=== PATIENT | male | born 1950 | race African-American/Black ===

== ENCOUNTER 2020-03-02 13:06 | Inpatient (IN) | payer OTHER ==
[2020-03-02 13:40] VITALS: BMI 24.4
[2020-03-02 14:25] LABS: BASO % 0.2 % (0-2.0); HEMATOCRIT 19.6 % (35.4-49); LYMPH % 13.8 % (8-40); MCH 33.4 pg (25.7-33.7); MCHC 33.7 g/dl (32.0-35.9); MEAN CELL VOLUME 99.3 fl (80-96); MEAN PLT VOLUME 9.1 fl (7.5-11.1); MONO % 6.3 % (3.8-10.2); NEUT % 79.7 % (42.8-82.8); PLATELET COUNT 97 K/MM3 (134-434); RBC 1.97 M/mm3 (4.00-5.60); RDW 11.3 % (11.9-15.9); WHITE BLOOD COUNT 3.1 K/mm3 (4.0-10.0)
[2020-03-02 14:26] LABS: VENOUS BASE EXCESS -6.3 mmol/L (-2-2); VENOUS O2 SATURATION 46.6 % (70-80); VENOUS PH 7.249 (7.310-7.410)
[2020-03-02 14:30] LABS: HEMOGLOBIN 6.6 GM/dL (11.7-16.9)
[2020-03-02 14:40] LABS: INR 0.98 (0.83-1.09); PROTHROMBIN TIME (PATIENT) 11.6 SEC (9.7-13.0)
[2020-03-02 14:43] LABS: ACTIVATED PTT 26.5 SECONDS (25.2-36.5)
[2020-03-02 14:51] LABS: EPI CELLS 4 /uL (0-25.1); HYALINE CASTS 1 /uL (0-3.1); URINE APPEARANCE CLEAR; URINE BACTERIA 16 /uL (0-1359); URINE BILIRUBIN NEGATIVE (NEGATIVE); URINE COLOR YELLOW; URINE GLUCOSE (UA) NEGATIVE (NEGATIVE); URINE KETONE NEGATIVE (NEGATIVE); URINE LEUK ESTERASE NEGATIVE (NEGATIVE); URINE NITRITE NEGATIVE (NEGATIVE); URINE PROTEIN 1+ (NEGATIVE); URINE RBC 12 /uL (0-23.9); URINE UROBILINOGEN 0.2 mg/dL (0.2-1.0); URINE WBC 2 /uL (0-25.8)
[2020-03-02 14:52] LABS: ALBUMIN 2.8 g/dl (3.4-5.0); BILIRUBIN,TOTAL 0.3 mg/dL (0.2-1); BLOOD UREA NITROGEN 101.2 mg/dL (7-18); CALCIUM 8.6 mg/dL (8.5-10.1); POTASSIUM 5.3 mmol/L (3.5-5.1); TOT PROT 7.8 g/dl (6.4-8.2)
--- NOTE | 2020-03-02 15:02 | PDOC ---
History of Present Illness - General Chief Complaint: Weakness Stated Complaint: WEAKNESS Time Seen by Provider: 03/02/20 14:29 History Source: Family, Alf Records Exam Limitations: Dementia - History of Present Illness Initial Comments: 03/02/20 14:52 69yo M from [place] with PMH lung cancer on chemo with likely mets, possible renal mass, COPD, seizures on phenobarbital, dementia, anemia (last hb 6.7 on 02/26/20), neuropathy on gabapentin, and recently treated for a tooth abbess with augmentin who was BIBEMS for "FTT, AMS, and abnormal labs." Unable to obtain history from patient due to AMS. Patient is currently AAOx0, and as per daughter and chart, is usually able to converse normally and is AAOx2-3. Per [place] chart, patient has had a recent functional decline and has been refusing chemo. PMH/PSH: as above Meds: phenobarbital, requip, flomax, geritussin, tylenol, zofran, gabapentin, oxana-lanta, morphine, iron Allergies: none SH: [place] resident FH: unable to obtain ROS: unable to obtain PE: Gen: thin elderly man, AAOx3, unintelligible, lying comfortably, NAD HEENT: PERRLA, MMM Neck: supple Heart: RRR Lungs: CTAB Chest: port on upper left chest wall Abdomen: soft, NT/ND Ext: warm, well-perfused, no edema Neuro: non-focal exam MDM: 9yo M from [place] with PMH lung cancer on chemo with likely mets, possible renal mass, COPD, seizures on phenobarbital, dementia, anemia (last hb 6.7 on 02/26/20), neuropathy on gabapentin, and recently treated for a tooth abbess with augmentin who was BIBEMS for "FTT, AMS, and abnormal labs." Labs notable for BUN/CR 101/5.0, elevated from [place] 02/26/20 result of 49/2.1. pH 7.249. Uremia may explain AMS. Differential also includes metabolic abnormalities, sepsis. -Renal consult for urgent dialysis for uremic encephalopathy and ARF -EKG -labs: uremia, creatinine 5 from 2 five days prior -CT Head: no acute findings -CT A/P: right renal pole mass and dilated gallbladder, CBD, pancreatic duct -Covid swab -admit -500ml NS Spoke to Dr. Garza who accepted the patient Past History - Medical History Allergies/Adverse Reactions: Allergies Allergy/AdvReac Type Severity Reaction Status Date / Time No Known Allergies Allergy Verified 03/02/20 14:04 Home Medications: Ambulatory Orders Acetaminophen [Tylenol] 325 mg PO 03/02/20 Ferrous Sulfate [Iron] 325 mg PO DAILY 03/02/20 Fluorometholone 0.1% Oph Oint 1 drop OD DAILY 03/02/20 Gabapentin 300 mg PO DAILY 03/02/20 Guaifenesin [Oxana-Tussin] 100 mg PO DAILY 03/02/20 Latanoprost 0.005% Eye Drops [Xalatan 0.005% Eye Drops -] 1 drop OD DAILY 03/02/20 Morphine *Immediate Release* [Msir -] 30 mg PO Q4H 03/02/20 Ondansetron HCl [Zofran] 4 mg PO PRN 03/02/20 Phenobarbital 32.4 mg PO PRN 03/02/20 Ropinirole HCl [Requip Xl] 2 mg PO DAILY 03/02/20 Tamsulosin HCl [Flomax] 0.4 mg PO DAILY 03/02/20 - Psycho-Social/Smoking History Smoking History: Never smoked Have you smoked in the past 12 months: No Information on smoking cessation initiated: No - Substance Abuse Hx (Audit-C & DAST Scrn) How often the patient has a drink containing alcohol: Never Score: In Men: 4 or > Positive; In Women: 3 or > Positive: 0 Screen Result (Pos requires Nsg. Audit-10AR): Negative *Physical Exam - Vital Signs Last Vital Signs Temp Pulse Resp BP Pulse Ox 97.9 F 77 19 90/62 96 03/02/20 13:35 03/02/20 13:07 03/02/20 13:07 03/02/20 13:07 03/02/20 13:07 ED Treatment Course - LABORATORY CBC & Chemistry Diagram: 03/02/20 13:57 03/02/20 13:57 - ADDITIONAL ORDERS Additional order review: Laboratory Results 03/02/20 03/02/20 03/02/20 13:57 13:57 13:57 PT with INR 11.60 INR 0.98 PTT (Actin FS) 26.5 VBG pH 7.249 L POC VBG pCO2 48.0 POC VBG pO2 29.6 VBG HCO3 20.5 L VBG O2 Sat (Desi) 46.6 L VBG Base Excess -6.3 L POC Glucometer Urine Color Yellow Urine Appearance Clear Urine pH 5.0 Ur Specific [place] 1.013 Urine Protein 1+ H Urine Glucose (UA) Negative Urine Ketones Negative Urine Blood Negative Urine Nitrite Negative Urine Bilirubin Negative Urine Urobilinogen 0.2 Ur Leukocyte Esterase Negative Urine WBC (Auto) 2 Urine RBC (Auto) 12 Urine Casts (Auto) 1 U Epithel Cells (Auto) 4 Urine Bacteria (Auto) 16 03/02/20 13:41 PT with INR INR PTT (Actin FS) VBG pH POC VBG pCO2 POC VBG pO2 VBG HCO3 VBG O2 Sat (Desi) VBG Base Excess POC Glucometer 116 Urine Color Urine Appearance Urine pH Ur Specific [place] Urine Protein Urine Glucose (UA) Urine Ketones Urine Blood Urine Nitrite Urine Bilirubin Urine Urobilinogen Ur Leukocyte Esterase Urine WBC (Auto) Urine RBC (Auto) Urine Casts (Auto) U Epithel Cells (Auto) Urine Bacteria (Auto) 03/02/20 03/02/20 13:57 13:41 RBC 1.97 L MCV 99.3 H MCHC 33.7 RDW 11.3 L MPV 9.1 Neutrophils % 79.7 Lymphocytes % 13.8 Monocytes % 6.3 Eosinophils % 0.0 Basophils % 0.2 POC Glucometer 116 Discharge - Discharge Information Problems reviewed: Yes Clinical Impression/Diagnosis: Transient alteration of awareness Condition: Guarded - Follow up/Referral - Patient Discharge Instructions - Post Discharge Activity
[2020-03-02] MEDS ORDERED: SODIUM CHLORIDE 500 ML IV STA (16:10)
--- NOTE | 2020-03-02 16:13 | PDOC ---
Attending Attestation - Resident Resident Name: Alex Heard - ED Attending Attestation I have performed the following: I have examined & evaluated the patient, The case was reviewed & discussed with the resident, I agree w/resident's findings & plan - HPI HPI: 03/02/20 16:08 69y/o M h/o met lung ca, CRI sent from [facility] for progressive generalized weakness and cognitive decline/AMS in setting of decrease PO intake. normally more alert and conversant, over last days has been weaker and less actve. - Physicial Exam PE: 03/02/20 16:09 afebrile, vss somnolent but arousable regular rate lungs symmetric grimaces with abd exam, otherwise soft/nd nonfocal neuro but limited - Medical Decision Making 03/02/20 16:10 69y/o M known metastatic lung ca with AMS and progressive functional decline at [facility], vss here but remains altered from baseline mental status. metabolic v. infectious v. neoplastic labs, ua ekg, cxr, ct head, ct abd/pel ivf admit 03/02/20 16:11 labs show baseline pancytopenia without neutropenia chem notable for Cr 5, up from baseline 2. ct head and AP pending UA clear Heart Score/ECG Review #1 ECG reviewed & interpreted by me at: 13:37 General ECG Interpretation: Sinus Rhythm, Normal Rate (71), Normal Intervals (qtc 408), No acute ischemic changes Compared to previous ECG there are: Previous ECG unavail Discharge - Discharge Information Problems reviewed: Yes Clinical Impression/Diagnosis: Transient alteration of awareness Condition: Guarded - Follow up/Referral Referrals: Marquita Vergara MD [Primary Care Provider] - - Patient Discharge Instructions - Post Discharge Activity
--- NOTE | 2020-03-02 17:46 | HP ---
Admitting History and Physical - Primary Care Physician PCP: Marquita Vergara - Admission Chief Complaint: AMS History of Present Illness: - History of Present Illness Initial Comments: 03/02/20 14:52 69yo M from [place] with PMH lung cancer on chemo with likely mets, possible renal mass, COPD, seizures on phenobarbital, dementia, anemia (last hb 6.7 on 02/26/20), neuropathy on gabapentin, and recently treated for a tooth abbess with augmentin who was BIBEMS for "FTT, AMS, and abnormal labs." Unable to obtain history from patient due to AMS. Patient is currently AAOx0, and as per daughter and chart, is usually able to converse normally and is AAOx2-3. Per [place] chart, patient has had a recent functional decline and has been refusing chemo. PMH/PSH: as above Meds: phenobarbital, requip, flomax, geritussin, tylenol, zofran, gabapentin, oxana-lanta, morphine, iron Allergies: none SH: [place] resident FH: unable to obtain ROS: unable to obtain History Source: Transfer Record Limitations to Obtaining History: Unresponsive - Past Medical History Pulmonary: Yes: COPD Heme/Onc: Yes: Anemia, Cancer - Smoking History Smoking history: Never smoked Have you smoked in the past 12 months: No Home Medications - Allergies Allergies/Adverse Reactions: Allergies Allergy/AdvReac Type Severity Reaction Status Date / Time No Known Allergies Allergy Verified 03/02/20 14:04 - Home Medications Home Medications: Ambulatory Orders Acetaminophen [Tylenol] 325 mg PO 03/02/20 Ferrous Sulfate [Iron] 325 mg PO DAILY 03/02/20 Fluorometholone 0.1% Oph Oint 1 drop OD DAILY 03/02/20 Gabapentin 300 mg PO DAILY 03/02/20 Guaifenesin [Oxana-Tussin] 100 mg PO DAILY 03/02/20 Latanoprost 0.005% Eye Drops [Xalatan 0.005% Eye Drops -] 1 drop OD DAILY 03/02/20 Morphine *Immediate Release* [Msir -] 30 mg PO Q4H 03/02/20 Ondansetron HCl [Zofran] 4 mg PO PRN 03/02/20 Phenobarbital 32.4 mg PO PRN 03/02/20 Ropinirole HCl [Requip Xl] 2 mg PO DAILY 03/02/20 Tamsulosin HCl [Flomax] 0.4 mg PO DAILY 03/02/20 Physical Examination Vital Signs: Vital Signs Temperature 99.0 F 03/02/20 17:11 Pulse Rate 74 03/02/20 17:11 Respiratory Rate 19 03/02/20 13:07 Blood Pressure 102/52 L 03/02/20 17:11 O2 Sat by Pulse Oximetry (%) 100 03/02/20 17:11 Labs: CBC, BMP 03/02/20 13:57 03/02/20 13:57
[2020-03-02] MEDS ORDERED: CEFTRIAXONE 1 GM in DEXTROSE 5%-WATER - 50 ML IVPB ONE (17:49)
[2020-03-02] MEDS ORDERED: CEFTRIAXONE 1 GM/50 ML BAG ONE (17:50)
[2020-03-02] MEDS: SODIUM CHLORIDE 1,000 ML IV SCH (18:21)
[2020-03-02] MEDS ORDERED: PHENobarbital 30 MG TABLET ONE (22:34)
[2020-03-02] MEDS: PHENobarbital 30 MG TABLET PO SCH (22:40)
[2020-03-03 00:11] LABS: IRON SERUM 133 ug/dL (50-175); TOTAL IRON BINDING CAPACITY 163 ug/dL (250-450)
[2020-03-03 07:27] LABS: BASO % 0.5 % (0-2.0); HEMATOCRIT 24.3 % (35.4-49); HEMOGLOBIN 8.2 GM/dL (11.7-16.9); MCH 32.5 pg (25.7-33.7); MEAN CELL VOLUME 95.5 fl (80-96); MEAN PLT VOLUME 8.6 fl (7.5-11.1); MONO % 15.8 % (3.8-10.2); NEUT % 65.7 % (42.8-82.8); PLATELET COUNT 101 K/MM3 (134-434); RBC 2.54 M/mm3 (4.00-5.60); RDW 15.4 % (11.9-15.9); WHITE BLOOD COUNT 3.7 K/mm3 (4.0-10.0)
[2020-03-03 07:40] LABS: ALBUMIN 2.7 g/dl (3.4-5.0); BILIRUBIN,TOTAL 0.3 mg/dL (0.2-1); BLOOD UREA NITROGEN 92.3 mg/dL (7-18); CALCIUM 8.3 mg/dL (8.5-10.1); CREATININE 4.3 mg/dL (0.55-1.3); POTASSIUM 5.4 mmol/L (3.5-5.1); TOT PROT 7.6 g/dl (6.4-8.2)
[2020-03-03] MEDS ORDERED: TAMSULOSIN HCL 0.4 MG CAP ONE (09:30)
[2020-03-03] MEDS: LATANOPROST 0.005% OPHTH SOLN 2.5ML BOTTLE OD SCH (10:00)
--- NOTE | 2020-03-03 10:43 | EKG ---
Test Reason : Blood Pressure : / mmHG Vent. Rate : 071 BPM Atrial Rate : 071 BPM P-R Int : 144 ms QRS Dur : 076 ms QT Int : 376 ms P-R-T Axes : 075 040 061 degrees QTc Int : 408 ms NORMAL SINUS RHYTHM INCREASED R/S RATIO IN V1, CONSIDER EARLY TRANSITION OR POSTERIOR INFARCT ABNORMAL ECG NO PREVIOUS ECGS AVAILABLE Confirmed by MD Dietrich Daniel ([id number]) on 03/03/2020 10:42:32 AM Referred By: Confirmed By:Juan Daniel Dietrich MD
[2020-03-03] MEDS: TAMSULOSIN HCL 0.4 MG CAP PO SCH (10:52)
[2020-03-03] MEDS: PHENobarbital 30 MG TABLET PO SCH ×2 (10:53→21:44)
[2020-03-03] MEDS: SODIUM CHLORIDE 1,000 ML IV SCH ×3 (11:12→20:17)
[2020-03-03 12:01] LABS: ANISOCYTOSIS 0; MACROCYTOSIS 0; PLATELET ESTIMATE DECREASED
--- NOTE | 2020-03-03 12:18 | PN ---
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 (short form) - Note 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: Pt examined in ER baseline he can talk and walk but when he was started back on chemo for lung CA-- he is declining-- he has poor po intake he is currently drowsy, not talking Vital Signs - 24 hr 03/02/20 03/02/20 03/02/20 19:10 19:35 19:50 Temperature 98.0 F 97.9 F Pulse Rate 84 Pulse Rate [ Left Radial] Pulse Rate [ 86 84 Right Radial] Respiratory 16 16 Rate Blood Pressure Blood Pressure 105/72 117/100 [Right Arm] O2 Sat by Pulse 100 99 99 Oximetry (%) 03/02/20 03/03/20 03/03/20 22:43 02:41 06:42 Temperature 97.6 F Pulse Rate Pulse Rate [ 85 Left Radial] Pulse Rate [ 75 74 Right Radial] Respiratory 16 16 14 Rate Blood Pressure Blood Pressure 104/63 97/53 L 124/58 L [Right Arm] O2 Sat by Pulse 100 97 100 Oximetry (%) 03/03/20 03/03/20 03/03/20 09:00 09:30 11:00 Temperature 97.2 F L Pulse Rate 80 Pulse Rate [ 82 88 Left Radial] Pulse Rate [ Right Radial] Respiratory 18 20 18 Rate Blood Pressure 128/74 Blood Pressure 127/78 101/54 L [Right Arm] O2 Sat by Pulse 100 99 Oximetry (%) 03/03/20 03/03/20 03/03/20 15:00 17:00 18:00 Temperature Pulse Rate Pulse Rate [ 89 83 Left Radial] Pulse Rate [ Right Radial] Respiratory 18 18 18 Rate Blood Pressure Blood Pressure 97/57 L 98/49 L [Right Arm] O2 Sat by Pulse 98 97 97 Oximetry (%) Current Medications Generic Name Dose Route Start Last Admin Trade Name Freq PRN Reason Stop Dose Admin Sodium Chloride 1,000 mls @ 100 mls/hr 03/03/20 13:37 03/03/20 16:46 Normal Saline - IV 100 mls/hr ASDIR PHILIPP Administration Latanoprost 1 drop 03/03/20 10:00 03/03/20 10:00 Xalatan 0.005% Eye Drops - OD Not Given DAILY PHILIPP Phenobarbital 32.4 mg 03/02/20 22:00 03/03/20 10:53 Phenobarbital - PO Not Given BID PHILIPP Sodium Bicarbonate 650 mg 03/03/20 14:00 03/03/20 16:46 Sodium Bicarbonate - PO Not Given BID [facility] Tamsulosin HCl 0.4 mg 03/03/20 10:00 03/03/20 10:52 Flomax - PO Not Given DAILY [facility] Laboratory Results - last 24 hr 03/02/20 03/02/20 03/03/20 14:05 23:23 06:00 WBC RBC Hgb Hct MCV MCH MCHC RDW Plt Count MPV Absolute Neuts (auto) Neutrophils % Neutrophils % (Manual) Band Neutrophils % Lymphocytes % Lymphocytes % (Manual) Monocytes % Monocytes % (Manual) Eosinophils % Eosinophils % (Manual) Basophils % Basophils % (Manual) Myelocytes % (Man) Promyelocytes % (Man) Blast Cells % (Manual) Nucleated RBC % Metamyelocytes Hypochromia Platelet Estimate Platelet Comment Polychromasia Poikilocytosis Anisocytosis Microcytosis Macrocytosis Sodium 137 Potassium 5.4 H Chloride 108 H Carbon Dioxide 20 L Anion Gap 9 BUN 92.3 H Creatinine 4.3 H Est GFR (CKD-EPI)AfAm 15.30 Est GFR (CKD-EPI)NonAf 13.20 Random Glucose 111 H Calcium 8.3 L Iron 133 155 TIBC 163 L Iron Saturation 81 H Unsaturated IBC 30 L Total Bilirubin 0.3 AST 137 H ALT 77 H Alkaline Phosphatase 46 Total Protein 7.6 Albumin 2.7 L Urine Color Urine Appearance Urine pH Ur Specific [place] Urine Protein Urine Glucose (UA) Urine Ketones Urine Blood Urine Nitrite Urine Bilirubin Urine Urobilinogen Ur Leukocyte Esterase Urine WBC (Auto) Urine RBC (Auto) Urine Casts (Auto) U Pathogenic Cast Auto U Epithel Cells (Auto) U Sm Round Cell (Auto) Urine Bacteria (Auto) Ur Random Creatinine Ur Random Sodium Ur Random Potassium Ur Random Chloride Blood Type O POSITIVE Antibody Screen Negative Crossmatch See Detail 03/03/20 03/03/20 03/03/20 06:10 17:00 17:00 WBC 3.7 L RBC 2.54 L Hgb 8.2 L Hct 24.3 L D MCV 95.5 MCH 32.5 MCHC 34.0 RDW 15.4 D Plt Count 101 L MPV 8.6 Absolute Neuts (auto) 2.4 Neutrophils % 65.7 Neutrophils % (Manual) 71.2 Band Neutrophils % 0.0 Lymphocytes % 18.0 D Lymphocytes % (Manual) 14.4 Monocytes % 15.8 H D Monocytes % (Manual) 14 H Eosinophils % 0.0 Eosinophils % (Manual) 0.0 Basophils % 0.5 Basophils % (Manual) 0.0 Myelocytes % (Man) 0 Promyelocytes % (Man) 0 Blast Cells % (Manual) 0 Nucleated RBC % 0 Metamyelocytes 0 Hypochromia 0 Platelet Estimate Decreased Platelet Comment Present Polychromasia 0 Poikilocytosis 0 Anisocytosis 0 Microcytosis 0 Macrocytosis 0 Sodium Potassium Chloride Carbon Dioxide Anion Gap BUN Creatinine Est GFR (CKD-EPI)AfAm Est GFR (CKD-EPI)NonAf Random Glucose Calcium Iron TIBC Iron Saturation Unsaturated IBC Total Bilirubin AST ALT Alkaline Phosphatase Total Protein Albumin Urine Color Yellow Urine Appearance Cloudy Urine pH 5.5 Ur Specific [place] 1.012 Urine Protein 1+ H Urine Glucose (UA) Negative Urine Ketones Negative Urine Blood 2+ H Urine Nitrite Negative Urine Bilirubin Negative Urine Urobilinogen 0.2 Ur Leukocyte Esterase 2+ H Urine WBC (Auto) 148 Urine RBC (Auto) 12 Urine Casts (Auto) 7 U Pathogenic Cast Auto 0-2 gran cast U Epithel Cells (Auto) >36 U Sm Round Cell (Auto) None Urine Bacteria (Auto) 18 Ur Random Creatinine 87.0 Ur Random Sodium 26 L Ur Random Potassium 22.0 L Ur Random Chloride 16 L Blood Type Antibody Screen Crossmatch S1 S2 RRR cachetic Lungs decreased Abd- soft, NT B/L upper arm edema-- left >right no leg edema A/P lung CA right renal cell CA acute kidney injury failure to thrive anemia SZD -- s/p PRBC -- iv fluids -- spoke with brother and inquired about advanced directives-- he will speak to his sister -- spoke with Transport Specialist -- oncology eval -- cultures all negative -- last chemo per [facility] -- 02/11/20 -- will order CT chest Problem List - Problems (1) Toxic metabolic encephalopathy Code(s): G92 - TOXIC ENCEPHALOPATHY (2) Lung cancer Problems reviewed: Yes Code(s): C34.90 - MALIGNANT NEOPLASM OF UNSP PART OF UNSP BRONCHUS OR LUNG (3) Renal cancer Problems reviewed: Yes Code(s): C64.9 - MALIGNANT NEOPLASM OF UNSP KIDNEY, EXCEPT RENAL PELVIS (4) DONALDO (acute kidney injury) Problems reviewed: Yes Code(s): N17.9 - ACUTE KIDNEY FAILURE, UNSPECIFIED (5) Hyperkalemia Code(s): E87.5 - HYPERKALEMIA (6) Transient alteration of awareness Code(s): R40.4 - TRANSIENT ALTERATION OF AWARENESS
--- NOTE | 2020-03-03 13:34 | CONSULT ---
Consult Consult Specialty:: Nephrology Reason for Consultation:: DONALDO - History of Present Illness Chief Complaint: sent in for abnormal labs History of Present Illness: Pt is a 69 year old male with pmhx of lung cancer with mets on chemo, renal mass, copd, epilepsy, anemaia, and dementia who was sent in for abnormal labs. He is awake but unable to give history. I was called to evaluate him for DONALDO. He is usually able to converse. He had refuse his last chemo. His renal function did start to improve with fluids. - History Source History Provided By: Medical Record - Past Medical History Pulmonary: Yes: COPD Heme/Onc: Yes: Other (lung cancer) - Smoking History Smoking history: Never smoked Have you smoked in the past 12 months: No Home Medications - Allergies Allergies/Adverse Reactions: Allergies Allergy/AdvReac Type Severity Reaction Status Date / Time No Known Allergies Allergy Verified 03/02/20 14:04 - Home Medications Home Medications: Ambulatory Orders Acetaminophen [Tylenol] 325 mg PO 03/02/20 Ferrous Sulfate [Iron] 325 mg PO DAILY 03/02/20 Fluorometholone 0.1% Oph Oint 1 drop OD DAILY 03/02/20 Gabapentin 300 mg PO DAILY 03/02/20 Guaifenesin [Yane-Tussin] 100 mg PO DAILY 03/02/20 Latanoprost 0.005% Eye Drops [Xalatan 0.005% Eye Drops -] 1 drop OD DAILY 03/02/20 Morphine *Immediate Release* [Msir -] 30 mg PO Q4H 03/02/20 Ondansetron HCl [Zofran] 4 mg PO PRN 03/02/20 Phenobarbital 32.4 mg PO PRN 03/02/20 Ropinirole HCl [Requip Xl] 2 mg PO DAILY 03/02/20 Tamsulosin HCl [Flomax] 0.4 mg PO DAILY 03/02/20 Family Medical History Family History: Unable to Obtain Review of Systems Unable to obtain ROS, reason: pt not answering Physical Exam Vital Signs: Vital Signs Temperature 97.2 F L 03/03/20 09:00 Pulse Rate 80 03/03/20 09:00 Respiratory Rate 18 03/03/20 09:00 Blood Pressure 128/74 03/03/20 09:00 O2 Sat by Pulse Oximetry (%) 100 03/03/20 06:42 Constitutional: Yes: Calm Eyes: Yes: Conjunctiva Clear HENT: Yes: Atraumatic Neck: Yes: Supple Cardiovascular: Yes: S1, S2 Respiratory: Yes: CTA Bilaterally, On Nasal O2 Gastrointestinal: Yes: Soft Renal/: Yes: Marie Present Musculoskeletal: Yes: Muscle Weakness Edema: No Integumentary: Yes: WNL Neurological: Yes: Confusion Labs: CBC, BMP 03/03/20 06:10 03/03/20 06:00 Imaging - Results Chest X-ray: Report Reviewed Cat Scan: Report Reviewed Problem List - Problems (1) DONALDO (acute kidney injury) Code(s): N17.9 - ACUTE KIDNEY FAILURE, UNSPECIFIED (2) Hyperkalemia Code(s): E87.5 - HYPERKALEMIA Assessment/Plan Current Medications Generic Name Dose Route Start Last Admin Trade Name Freq PRN Reason Stop Dose Admin Sodium Chloride 1,000 mls @ 83 mls/hr 03/02/20 18:00 03/03/20 11:12 Normal Saline - IV 83 mls/hr ASDIR PHILIPP Administration Latanoprost 1 drop 03/03/20 10:00 Xalatan 0.005% Eye Drops - OD DAILY PHILIPP Phenobarbital 32.4 mg 03/02/20 22:00 03/03/20 10:53 Phenobarbital - PO Not Given BID PHILIPP Tamsulosin HCl 0.4 mg 03/03/20 10:00 03/03/20 10:52 Flomax - PO Not Given DAILY PHILIPP Impression 1. DONALDO 2. hyperkalemia 3. met acidosis 4. 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 epilepsy 7. dementia 8. anemia Plan - renal function is improving - will give lokelma - will give bicarb - cont fluids - monitor output - monitor potassium - repeat cpk in am - low potassium renal diet - check ua, urine lytes and urine division human resources manager
[2020-03-03] MEDS: SODIUM BICARBONATE 650 MG TABLET PO SCH ×2 (16:46→21:44)
[2020-03-03 17:56] LABS: EPI CELLS >36 /uL (0-25.1); HYALINE CASTS 7 /uL (0-3.1); PH,URINE 5.5 (5.0-8.0); URINE APPEARANCE CLOUDY; URINE BACTERIA 18 /uL (0-1359); URINE BILIRUBIN NEGATIVE (NEGATIVE); URINE COLOR YELLOW; URINE GLUCOSE (UA) NEGATIVE (NEGATIVE); URINE KETONE NEGATIVE (NEGATIVE); URINE LEUK ESTERASE 2+ (NEGATIVE); URINE NITRITE NEGATIVE (NEGATIVE); URINE PROTEIN 1+ (NEGATIVE); URINE RBC 12 /uL (0-23.9); URINE UROBILINOGEN 0.2 mg/dL (0.2-1.0); URINE WBC 148 /uL (0-25.8)
[2020-03-03] MEDS: SODIUM ZIRCONIUM CYCLOSILICATE (LOKELMA) 10 GM PACKET PO SCH (20:02)
--- NOTE | 2020-03-03 23:37 | CONSULT ---
Consult - text type - Consultation Consultation Note: Patient seen and examined 69 year old male with pmhx of lung cancer with mets on chemo, renal mass, copd, epilepsy, anemia, and dementia who was sent in for abnormal labs. He is awake but unable to give history. Mumbling. He is coughing and spitting up. Nonconverant Not following commands Confused Uttering random words - History Source History Provided By: Medical Record - Past Medical History Pulmonary: Yes: COPD Heme/Onc: Yes: Other (lung cancer) - Smoking History Smoking history: Never smoked Have you smoked in the past 12 months: No Home Medications - Allergies Allergies/Adverse Reactions: Allergies Allergy/AdvReac Type Severity Reaction Status Date / Time No Known Allergies Allergy Verified 03/02/20 14:04 - Home Medications Home Medications: Ambulatory Orders Acetaminophen [Tylenol] 325 mg PO 03/02/20 Ferrous Sulfate [Iron] 325 mg PO DAILY 03/02/20 Fluorometholone 0.1% Oph Oint 1 drop OD DAILY 03/02/20 Gabapentin 300 mg PO DAILY 03/02/20 Guaifenesin [Yane-Tussin] 100 mg PO DAILY 03/02/20 Latanoprost 0.005% Eye Drops [Xalatan 0.005% Eye Drops -] 1 drop OD DAILY 03/02/20 Morphine *Immediate Release* [Msir -] 30 mg PO Q4H 03/02/20 Ondansetron HCl [Zofran] 4 mg PO PRN 03/02/20 Phenobarbital 32.4 mg PO PRN 03/02/20 Ropinirole HCl [Requip Xl] 2 mg PO DAILY 03/02/20 Tamsulosin HCl [Flomax] 0.4 mg PO DAILY 03/02/20 Family Medical History Family History: Unable to Obtain Review of Systems Unable to obtain ROS, reason: pt not answering Physical Exam Vital Signs: Vital Signs Temperature 97.2 F L 03/03/20 09:00 Pulse Rate 80 03/03/20 09:00 Respiratory Rate 18 03/03/20 09:00 Blood Pressure 128/74 03/03/20 09:00 O2 Sat by Pulse Oximetry (%) 100 03/03/20 06:42 Constitutional: Yes: Calm Eyes: Yes: Conjunctiva Clear HENT: Yes: Atraumatic Neck: Yes: Supple Cardiovascular: Yes: S1, S2 Respiratory: Yes: CTA Bilaterally, On Nasal O2 Gastrointestinal: Yes: Soft Renal/: Yes: Marie Present Integumentary: Yes: WNL Labs: CBC, BMP 03/03/20 06:10 03/03/20 06:00 Imaging - Results Chest X-ray: Report Reviewed Cat Scan: Report Reviewed Problem List - Problems (1) DONALDO (acute kidney injury) Code(s): N17.9 - ACUTE KIDNEY FAILURE, UNSPECIFIED (2) Hyperkalemia Code(s): E87.5 - HYPERKALEMIA Assessment/Plan Current Medications Generic Name Dose Route Start Last Admin Trade Name Freq PRN Reason Stop Dose Admin Sodium Chloride 1,000 mls @ 83 mls/hr 03/02/20 18:00 03/03/20 11:12 Normal Saline - IV 83 mls/hr ASDIR PHILIPP Administration Latanoprost 1 drop 03/03/20 10:00 Xalatan 0.005% Eye Drops - OD DAILY PHILIPP Phenobarbital 32.4 mg 03/02/20 22:00 03/03/20 10:53 Phenobarbital - PO Not Given BID PHILIPP Tamsulosin HCl 0.4 mg 03/03/20 10:00 03/03/20 10:52 Flomax - PO Not Given DAILY PHILIPP Impression 1. DONALDO 2. hyperkalemia 3. met acidosis 4. h/o lung cancer with mets 5. 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 epilepsy 7. dementia 8. anemia 69 y/o patient, h/o lung cancer, on chemotherapy admitted with renal failure, anemia, CT a/p -- rt. renal mass suspicious for neoplasm aswell COVID testing pending Would discuss with primary treating oncologist
[2020-03-04] MEDS: SODIUM CHLORIDE 1,000 ML IV SCH ×2 (06:14→17:06)
[2020-03-04 08:25] LABS: ALBUMIN 2.5 g/dl (3.4-5.0); BILIRUBIN,TOTAL 0.3 mg/dL (0.2-1); BLOOD UREA NITROGEN 82.3 mg/dL (7-18); CALCIUM 8.5 mg/dL (8.5-10.1); CREATININE 3.4 mg/dL (0.55-1.3); POTASSIUM 5.1 mmol/L (3.5-5.1)
[2020-03-04] MEDS: PHENobarbital 30 MG TABLET PO SCH ×3 (11:17→23:59)
[2020-03-04] MEDS: SODIUM BICARBONATE 650 MG TABLET PO SCH ×2 (11:17→22:55)
[2020-03-04] MEDS: TAMSULOSIN HCL 0.4 MG CAP PO SCH (11:18)
[2020-03-04] MEDS: SODIUM ZIRCONIUM CYCLOSILICATE (LOKELMA) 10 GM PACKET PO SCH (11:18)
[2020-03-04] MEDS: LATANOPROST 0.005% OPHTH SOLN 2.5ML BOTTLE OD SCH (12:20)
--- NOTE | 2020-03-04 12:37 | CONSULT ---
Admitting History and Physical - Primary Care Physician PCP: Kayli Garza - Admission History of Present Illness: per emr- 69yo M from [place] with PMH lung cancer on chemo with likely mets, possible renal mass, COPD, seizures on phenobarbital, dementia, anemia (last hb 6.7 on 02/26/20), neuropathy on gabapentin, and recently treated for a tooth absess with augmentin who was BIBEMS for "FTT, AMS, and abnormal labs." Unable to obtain history from patient due to AMS. Patient is currently AAOx0, and as per daughter and chart, is usually able to converse normally and is AAOx2-3. Per [place] chart, patient has had a recent functional decline and has been refusing chemo Per Oncology-03/03- h/o lung cancer, on chemotherapy admitted with renal failure, anemia, CT a/p -- rt. renal mass suspicious for neoplasm He is awake but unable to give history. Mumbling. He is coughing and spitting up. Nonconverant Not following commands Confused Uttering random words f/u covid testing supportive care for anemia/ renal failure per primary team Selected Entries 03/03/20 03/03/20 03/03/20 02:41 06:42 09:00 Intake, Oral Amount Temperature 97.6 F 97.2 F L Pulse Rate 80 Pulse Rate [ 85 Left Radial] Pulse Rate [ 74 Right Radial] Blood Pressure 128/74 Blood Pressure 97/53 L 124/58 L [Right Arm] 03/03/20 03/03/20 03/03/20 09:30 11:00 15:00 Intake, Oral Amount Temperature Pulse Rate Pulse Rate [ 82 88 89 Left Radial] Pulse Rate [ Right Radial] Blood Pressure Blood Pressure 127/78 101/54 L 97/57 L [Right Arm] 03/03/20 03/03/20 03/03/20 17:00 18:00 23:00 Intake, Oral 120 Amount Temperature 97.8 F Pulse Rate 92 H Pulse Rate [ 83 Left Radial] Pulse Rate [ Right Radial] Blood Pressure 131/52 L Blood Pressure 98/49 L [Right Arm] 03/03/20 03/04/20 03/04/20 23:45 05:58 06:24 Intake, Oral 30 Amount Temperature 98.8 F 98.9 F Pulse Rate 87 99 H Pulse Rate [ Left Radial] Pulse Rate [ Right Radial] Blood Pressure 104/45 L 113/59 L Blood Pressure [Right Arm] 03/04/20 03/04/20 09:19 10:45 Intake, Oral Amount Temperature 98.5 F 98.1 F Pulse Rate 87 93 H Pulse Rate [ Left Radial] Pulse Rate [ Right Radial] Blood Pressure 136/71 129/70 Blood Pressure [Right Arm] Laboratory Tests 03/02/20 03/03/20 13:57 06:10 WBC 3.1 L 3.7 L Selected Entries 03/04/20 03/04/20 03/04/20 06:24 09:00 09:19 Pulse Rate 99 H 87 Respiratory 20 19 19 Rate Respiratory Non-Labored Effort O2 Sat by Pulse 100 Oximetry (%) Oxygen Delivery Nasal Cannula Method Oxygen Flow 2 Rate 03/04/20 10:45 Pulse Rate 93 H Respiratory 20 Rate Respiratory Effort O2 Sat by Pulse Oximetry (%) Oxygen Delivery Method Oxygen Flow Rate Puree/thin liquid ordered Reported to cough on thick liquid this am. pending results of Chest CT. CXR ok History Source: Medical Record Limitations to Obtaining History: Clinical Condition - Past Medical History Pulmonary: Yes: COPD Heme/Onc: Yes: Anemia, Cancer - Smoking History Smoking history: Never smoked Have you smoked in the past 12 months: No History - Admission Reason For Visit: MALIGNANT NEOPLASM OF LUNG AMS UREMIA - Diagnostics X-ray: Report Reviewed (chest/head) CT Scan: Report Reviewed (chest ct pending) - General Mental Status: Awake and Alert, Vague (Repeatedly asking for water, seems unaware that he was just given a sip, twitches in left shoulder and right arm, grimaces, moans, takes effortful breathes), Confused - Hearing Hearing: Impaired Hearing Aide: Yes (ONE WITH PATIENT) With Patient: Yes Speech Evaluation - Communication Primary Language: IVORIAN Communication: Yes: Simple Responses (Repeatedly asks for water.) - Speech Production Intelligibility: Yes: Mildly Impaired - Speech Characteristics Voice Loudness: Normal Voice Pitch: Yes: Normal Voice Phonatory-based Quality: Yes: Normal Speech Clarity: < 100% Nasal Resonance: Normal Articulation: Yes: Precise, Imprecise (slight?) - Language/Auditory Comprehension Observation: Able to respond to yes/no queries: No (Pt does not hear me with my mask on. I could not assess abilty to comprehend/.follow commands), Comprehends Conversational Speech: No - Language/Verbal Expression Able to Respond to Simple Queries: Yes: Severely Impaired - Swallow Evaluation/Bedside Assessment Current Nutritional Intake: Dysphagia Pureed, Thin Liquids Oral Secretions: Yes: WFL Dentition: Yes: Edentulous Facial Symmetry at Rest: Symmetrical Facial Symmetry on Retraction: Symmetrical Lingual Movement: Symmetric Lingual Speed of Movement: Normal Lingual Movement Strgth Against Opposition: Normal Lingual Movement Characteristics: Normal Velopharyngeal Movement: Normal Laryngeal Movement: Labored,delay initiation Rate of Intake: WFL, Slow/Holding Bolus Size: Small Labial Seal: WFL Oral Prep Time: Increased Pocketing: None Timing of Swallow: Delayed Coughing/Throat Clear: No (tolerated single careful sips of thin water from cup) Recommendations - Speech Evaluation, Impression/Plan Impression: Confused, UE/shoulder twitches, repeatedly asking for water. Unable to hear me with my mask on. When seated upright, chin position to neutral, tolerated single careful sips of thin water from cup. \\. Pending ct chest. - Disposition Discharge to: To be Determined - Dysphagia Impressions/Plan Dysphagia Impressions: Mild Impairment, Risk of Aspiration, Ongoing Evaluation *Silent aspiration: cannot be R/O at bedside Dysphagia Treatment Plan: Small Bites, Chin Tuck/Down, Clear Pocket Food, Facili tative Feeding, Safe Rate, 1/2 tsp. at a time, Elevate HOB during feed - Recommendations Diet Consistency: Dysphagia Pureed Medication Administration: Crushed with applesauce Liquids: Thin Liquids (Single, careful sips. if cough, downgrade to nectar.) Supplement: Ensure, Magic Cup, Ensure Pudding
--- NOTE | 2020-03-04 17:21 | PN ---
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, Physician History of Present Illness: Pt seen and examined at bedside. He is awake but not very interactive. - Current Medication List Current Medications: Active Medications Sodium Chloride (Normal Saline -) 1,000 mls @ 100 mls/hr IV ASDIR [facility] Last Admin: 03/04/20 17:06 Dose: 100 mls/hr Documented by: Latanoprost (Xalatan 0.005% Eye Drops -) 1 drop OD DAILY [facility] Last Admin: 03/04/20 12:20 Dose: 1 unit Documented by: Phenobarbital (Phenobarbital -) 32.4 mg PO BID [facility] Last Admin: 03/04/20 11:17 Dose: Not Given Documented by: Sodium Bicarbonate (Sodium Bicarbonate -) 650 mg PO BID [facility] Last Admin: 03/04/20 11:17 Dose: Not Given Documented by: Sodium Zirconium Cyclosilicate (Lokelma) 10 gm PO DAILY [facility] Last Admin: 03/04/20 11:18 Dose: Not Given Documented by: Tamsulosin HCl (Flomax -) 0.4 mg PO DAILY [facility] Last Admin: 03/04/20 11:18 Dose: Not Given Documented by: - Objective Vital Signs: Vital Signs Temperature 98.1 F 03/04/20 17:16 Pulse Rate 86 03/04/20 17:16 Respiratory Rate 19 03/04/20 17:16 Blood Pressure 122/61 03/04/20 17:16 O2 Sat by Pulse Oximetry (%) 100 03/04/20 09:00 Constitutional: Yes: Calm Eyes: Yes: Conjunctiva Clear HENT: Yes: Atraumatic Neck: Yes: Supple Cardiovascular: Yes: S1, S2 Respiratory: Yes: CTA Bilaterally Gastrointestinal: Yes: Soft Genitourinary: Yes: Incontinence Musculoskeletal: Yes: WNL Edema: No Neurological: Yes: Confusion Labs: CBC, BMP 03/03/20 06:10 03/04/20 07:00 INR, PTT INR 0.98 (0.83-1.09) 03/02/20 13:57 Problem List - Problems (1) DONALDO (acute kidney injury) Code(s): N17.9 - ACUTE KIDNEY FAILURE, UNSPECIFIED (2) Hyperkalemia Code(s): E87.5 - HYPERKALEMIA Assessment/Plan Current Medications Generic Name Dose Route Start Last Admin Trade Name Freq PRN Reason Stop Dose Admin Sodium Chloride 1,000 mls @ 100 mls/hr 03/03/20 13:37 03/04/20 17:06 Normal Saline - IV 100 mls/hr ASDIR [facility] Administration Latanoprost 1 drop 03/03/20 10:00 03/04/20 12:20 Xalatan 0.005% Eye Drops - OD 1 unit DAILY [facility]IIL[facility] Administration Phenobarbital 32.4 mg 03/02/20 22:00 03/04/20 11:17 Phenobarbital - PO Not Given BID [facility]ILIP[facility] Sodium Bicarbonate 650 mg 03/03/20 14:00 03/04/20 11:17 Sodium Bicarbonate - PO Not Given BID [facility]ILIP[facility] Sodium Zirconium Cyclosilicate 10 gm 03/03/20 19:00 03/04/20 11:18 Lokelma PO Not Given DAILY [facility] Tamsulosin HCl 0.4 mg 03/03/20 10:00 03/04/20 11:18 Flomax - PO Not Given DAILY [facility]ILIP[facility] Impression 1. DONALDO 2. hyperkalemia 3. met acidosis 4. 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 epilepsy 7. dementia 8. anemia Plan - renal function is improving - potassium improved - will change fluids to 1/2 ns - repeat labs in am - cpk has improved - follow urine studies - donaldo likely in part pre-renal
[2020-03-04] MEDS: SODIUM CHLORIDE 0.45% 1,000 ML IV SCH (18:26)
--- NOTE | 2020-03-04 22:24 | HOSP ---
Subjective - Review of Symptoms Events since last encounter: Hospitalist Encounter Notified by the RN that the patient's duplex of the upper extremity indicates- DVT R-Brachial Vein Discussed with Dr Gayle who agrees on starting anticoagulation without Heparin bolus Plan: Heparin Protocol without Heparin Bolus Physical Examination Vital Signs: Vital Signs Temperature 98.1 F 03/04/20 17:16 Pulse Rate 86 03/04/20 17:16 Respiratory Rate 19 03/04/20 17:16 Blood Pressure 122/61 03/04/20 17:16 O2 Sat by Pulse Oximetry (%) 100 03/04/20 09:00 Labs: CBC, BMP 03/03/20 06:10 03/04/20 07:00 Hospitalist Encounter Assessment: 69 y/o male with a PMHx of Lung Ca w/ mets, COPD, Seizure, Dementia. Admitted for Acute Metabolic Encephalopathy, Lung Ca with Metastasis
[2020-03-04] MEDS: HEPARIN INFUSION - 25,000 UNITS/500 ML INFUS.BAG IVPB SCH (22:55)
[2020-03-05] MEDS: SODIUM CHLORIDE 0.45% 1,000 ML IV SCH ×2 (06:48→20:52)
[2020-03-05 08:18] LABS: ALBUMIN 2.3 g/dl (3.4-5.0); BILIRUBIN,TOTAL 0.3 mg/dL (0.2-1); BLOOD UREA NITROGEN 58.3 mg/dL (7-18); CALCIUM 8.3 mg/dL (8.5-10.1); CREATININE 2.5 mg/dL (0.55-1.3); POTASSIUM 4.4 mmol/L (3.5-5.1); TOT PROT 6.8 g/dl (6.4-8.2)
--- NOTE | 2020-03-05 09:32 | PN ---
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, [employer]CH[employer]ICIAN - Note 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: Selected Entries 03/04/20 03/04/20 03/05/20 14:22 22:24 02:00 Breakfast 0 Diet Tolerated Poor Lunch 0 Supper 25% Pulse Rate 81 Blood Pressure 116/56 L Bowel Movement 03/05/20 03/05/20 03/05/20 05:36 06:00 09:26 Breakfast 75% Diet Tolerated Well Lunch Supper Pulse Rate 79 Blood Pressure 119/59 L Bowel Movement No Laboratory Tests 03/03/20 06:10 WBC 3.7 L sleepy. On puree/thin liquids. Pt tolerated breakfast but reported throat pain when swallowing. R/o dryness from o2 NC? Consider trial of humidification to NC. Monitor c/o Odynophagia
--- NOTE | 2020-03-05 10:48 | PN ---
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, Physician History of Present Illness: Pt seen/ examined Chart reviewed events noted Awake No distress Chronic ill appearance On Heparin for dvt now - Current Medication List Current Medications: Active Medications Heparin Sodium (Porcine) (Heparin -) 5,000 unit IVPUSH PRN PRN PRN Reason: APTT (SECONDS) <40 Heparin Sodium (Porcine) (Heparin -) 1,000 unit IVPUSH PRN PRN PRN Reason: APTT (SECONDS) 40-49 Sodium Chloride (1/2 Normal Saline) 1,000 mls @ 100 mls/hr IV ASDIR [facility] Last Admin: 03/05/20 06:48 Dose: 100 mls/hr Documented by: Heparin Sodium/Dextrose (Heparin Infusion -) 25,000 units in 500 mls @ 20 mls/hr IVPB TITR [facility]; Protocol Last Admin: 03/04/20 22:55 Dose: 1,000 units/hr, 20 mls/hr Documented by: Latanoprost (Xalatan 0.005% Eye Drops -) 1 drop OD DAILY [facility] Last Admin: 03/04/20 12:20 Dose: 1 unit Documented by: Phenobarbital (Phenobarbital -) 30 mg PO BID [facility] Last Admin: 03/04/20 22:55 Dose: 30 mg Documented by: Sodium Bicarbonate (Sodium Bicarbonate -) 650 mg PO BID [facility] Last Admin: 03/04/20 22:55 Dose: 650 mg Documented by: Tamsulosin HCl (Flomax -) 0.4 mg PO DAILY [facility] Last Admin: 03/04/20 11:18 Dose: Not Given Documented by: - Objective Vital Signs: Vital Signs Temperature 98.3 F 03/05/20 06:00 Pulse Rate 79 03/05/20 06:00 Respiratory Rate 20 03/05/20 06:00 Blood Pressure 119/59 L 03/05/20 06:00 O2 Sat by Pulse Oximetry (%) 98 03/04/20 21:00 Constitutional: Yes: No Distress, Other (chronic ill appearance) Neck: Yes: Supple Cardiovascular: Yes: Regular Rate and Rhythm Respiratory: Yes: Diminished Gastrointestinal: Yes: Soft Labs: CBC, BMP 03/03/20 06:10 03/05/20 07:15 INR, PTT INR 0.98 (0.83-1.09) 03/02/20 13:57 Problem List - Problems (1) Lung cancer, primary, with metastasis from lung to other site Code(s): C34.90 - MALIGNANT NEOPLASM OF UNSP PART OF UNSP BRONCHUS OR LUNG (2) DVT (deep venous thrombosis) Code(s): I82.409 - ACUTE EMBOLISM AND THOMBOS UNSP DEEP VN UNSP LOWER EXTREMITY (3) DONALDO (acute kidney injury) Code(s): N17.9 - ACUTE KIDNEY FAILURE, UNSPECIFIED (4) Toxic metabolic encephalopathy Code(s): G92 - TOXIC ENCEPHALOPATHY Assessment/Plan Multiple issues as Leted 1. Acure Renal failusre 2. 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
[2020-03-05] MEDS: TAMSULOSIN HCL 0.4 MG CAP PO SCH (11:25)
[2020-03-05] MEDS: SODIUM BICARBONATE 650 MG TABLET PO SCH ×2 (11:25→22:16)
[2020-03-05] MEDS: LATANOPROST 0.005% OPHTH SOLN 2.5ML BOTTLE OD SCH (11:36)
[2020-03-05] MEDS: PHENobarbital 30 MG TABLET PO SCH ×2 (11:36→22:16)
[2020-03-05 11:49] LABS: INR 1.04 (0.83-1.09); PROTHROMBIN TIME (PATIENT) 12.3 SEC (9.7-13.0)
[2020-03-05] MEDS: HEPARIN NA (PORCINE) 5,000 UNITS/ML 1ML VIAL IVPUSH PRN (12:20)
--- NOTE | 2020-03-05 14:40 | CONSULT ---
Consult Consult Specialty:: Palliative Care Referred by:: Kayli Garza Reason for Consultation:: Goals of care - History of Present Illness Chief Complaint: Lung ca, FTT History of Present Illness: 69yo M from [facility] with PMH metastatic lung cancer on chemo, renal mass ? RCC, COPD, seizures on phenobarbital, dementia, anemia (last hb 6.7 on 02/26/20), neuropathy on gabapentin, who was BIBEMS to [facility] on 03/02 for "FTT, AMS, and a bnormal labs." Per [place] chart, patient has had a recent functional decline and has been refusing chemo. He was admitted with disorientation and confusion and at baseline as per family he is able to converse and is oriented x1-2. He held multiple jobs till a few years ago and has not been in close contact with his family. He was diagnosed with lung cancer 4 years ago and underwent sx , ? chemo / radiation at that time. He has been in [facility] since then. He was on chemotherapy currently and last reported treatment was on 02/11/20. He has had a functional decline, decreased appetite, not able to get out of bed, more confused. He refused his most recent chemotherapy session as per alf records. He was found to have severe anemia, pancytopenia ( not neutropenic), hypernatremia, hyperchloremia, DONALDO, acidosis, hepatitis, rhabdo and hyperkalemia. CT abdo/ pelvis- 5.7 x 4.4 cm neoplastic mass rt renal pole, dilated CBD 12 mm, pancreatic duct 4 mm- MRCP recommended. CTH mild soft tissue swelling lat/ sup margin rt orbit- ? mets. CT chest- severe COPD, no mass, no mets. He is s/p PRBC, iv hydration with some improvement in renal functions and electrolyte derangements. He has been downgraded to pureed diet with thin liquids. He was found to have DVT rt brachial vein and is now on heparin drip. He is being followed by renal/ haem-onc. His primary oncologist is in [facility] as per his sister Dai Childers. Palliative care consult called to define GOC. - History Source History Provided By: Family Member, Medical Record Limitations to Obtaining History: Clinical Condition - Past Medical History [employer]: Yes: Dementia, Seizure Pulmonary: Yes: COPD - Past Surgical History Past Surgical History: Yes: Thoracotomy - Smoking History Smoking history: Never smoked Have you smoked in the past 12 months: No - Social History Usual Living Arrangement: Retirement History of Recent Travel: No Home Medications - Allergies Allergies/Adverse Reactions: Allergies Allergy/AdvReac Type Severity Reaction Status Date / Time No Known Allergies Allergy Verified 03/02/20 14:04 - Home Medications Home Medications: Ambulatory Orders Ferrous Sulfate [Iron] 325 mg PO DAILY 03/02/20 Fluorometholone 0.1% Oph Oint 1 drop OD DAILY 03/02/20 Gabapentin 300 mg PO DAILY 03/02/20 Guaifenesin [Yane-Tussin] 100 mg PO DAILY 03/02/20 Latanoprost 0.005% Eye Drops [Xalatan 0.005% Eye Drops -] 1 drop OD DAILY 03/02/20 Morphine *Immediate Release* [Msir -] 30 mg PO Q4H 03/02/20 Ondansetron HCl [Zofran] 4 mg PO PRN 03/02/20 Phenobarbital 32.4 mg PO PRN 03/02/20 Ropinirole HCl [Requip Xl] 4 mg PO DAILY 03/02/20 Tamsulosin HCl [Flomax] 0.4 mg PO DAILY 03/02/20 Family Medical History Family History: Denies Review of Systems - Review of Systems Constitutional: reports: Lethargy, Loss of Appetite, Malaise, Weakness HENT: reports: Difficult Swallowing Respiratory: reports: SOB Gastrointestinal: reports: Dysphagia Neurological: reports: Confusion Physical Exam Vital Signs: Vital Signs Temperature 98.3 F 03/05/20 13:24 Pulse Rate 75 03/05/20 13:24 Respiratory Rate 20 03/05/20 13:24 Blood Pressure 126/88 03/05/20 13:24 O2 Sat by Pulse Oximetry (%) 98 03/04/20 21:00 Constitutional: Yes: Thin Eyes: Yes: Conjunctiva Clear, EOM Intact HENT: Yes: Atraumatic, Normocephalic Neck: Yes: Supple Cardiovascular: Yes: Regular Rate and Rhythm Respiratory: Yes: Regular, CTA Bilaterally Gastrointestinal: Yes: Normal Bowel Sounds Neurological: Yes: Alert, Confusion Labs: CBC, BMP 03/03/20 06:10 03/05/20 07:15 Imaging - Results Chest X-ray: Report Reviewed Cat Scan: Report Reviewed Ultrasound: Report Reviewed Problem List - Problems (1) DONALDO (acute kidney injury) Code(s): N17.9 - ACUTE KIDNEY FAILURE, UNSPECIFIED (2) DVT (deep venous thrombosis) Code(s): I82.409 - ACUTE EMBOLISM AND THOMBOS UNSP DEEP VN UNSP LOWER EXTREMITY (3) Lung cancer, primary, with metastasis from lung to other site Code(s): C34.90 - MALIGNANT NEOPLASM OF UNSP PART OF UNSP BRONCHUS OR LUNG (4) Renal cancer Code(s): C64.9 - MALIGNANT NEOPLASM OF UNSP KIDNEY, EXCEPT RENAL PELVIS (5) Toxic metabolic encephalopathy Code(s): G92 - TOXIC ENCEPHALOPATHY Assessment/Plan 69yo M from [facility] with PMH metastatic lung cancer on chemo, renal mass ? RCC, COPD, seizures on phenobarbital, dementia, anemia (last hb 6.7 on 02/26/20), neuropathy on gabapentin, who was BIBEMS to [facility] on 03/02 for "FTT, AMS, and abnormal labs." Per DC chart, patient has had a recent functional decline and has been refusing chemo. He was admitted with disorientation and confusion and at baseline as per family he is able to converse and is oriented x1-2. He held multiple jobs till a few years ago and has not been in close contact with his family. He was diagnosed with lung cancer 4 years ago and underwent sx , ? chemo / radiation at that time. He has been in [facility] since then. He was on chemotherapy currently and last reported treatment was on 02/11/20. He has had a functional decline, decreased appetite, not able to get out of bed, more confused. He refused his most recent chemotherapy session as per alf records. He was found to have severe anemia, pancytopenia ( not neutropenic), hypernatremia, hyperchloremia, DONALOD, acidosis, hepatitis, rhabdo and hyperkalemia. CT abdo/ pelvis- 5.7 x 4.4 cm neoplastic mass rt renal pole, dilated CBD 12 mm, pancreatic duct 4 mm- MRCP recommended. CTH mild soft tissue swelling lat/ sup margin rt orbit- ? mets. CT chest- severe COPD, no mass, no mets. He is s/p PRBC, iv hydration with some improvement in renal functions and electrolyte derangements. He has been downgraded to pureed diet with thin liquids. He was found to have DVT rt brachial vein and is now on heparin drip. He is being followed by renal/ haem-onc. His primary oncologist is in [facility] as per his sister Dai Childers. Palliative care consult called to define GOC. primary lung cancer with ? recurrence- on chemo currently Renal mass- RCC vs mets abnormalities seen on CT abdo and CTH- ? metstasis dysphagia, FTT, cognitive decline, dehydration with DONALDO, rhabdo, hepatitis severe COPD Rt brachial vein DVT I spoke to pt's sister Dai Childers and brother in law Andreas. Mr Dupont was diagnosed with ling cancer 3 years ago and has been in [facility] the past 3 years. He was very independent before that. He does not have any advanced directives. We discussed the kidney mass along with the lung cancer and abnl findings in pancreas and CT brain. His last chemo was on 02/10 as per the chart and he has been declining since, bed bound, decreased appetite and cognitive decline. Reportedly refused chemo - last treatment. We discussed that chemotherapy itself can be very toxic and can lead to weakness, decreased appetite. Given his functional decline, FTT, DONALDO he may not be a candidate for further chemotherapy. It will be useful at this point to have a discussion with pt's oncologist regarding his overall prognosis. If he is not a candidate for further chemotherapy he would be suitable for hospice care. Overall prognosis guarded in view of possible second malignancy and overall physical and cognitive decline. Mr Dupont does not have a HCP and does not have advanced directives. Family is requesting an in person conference as they might have more questions regarding his prognosis, possible hospice care- will try to arrange. will follow. [facility] for allowing me to participate in the care of this patient. Please call with questions. Isaiah Moreno MD [phone] Total time for chart review, examination, conference and coordination of care- 70 minutes
--- NOTE | 2020-03-05 14:42 | PN ---
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, Physician History of Present Illness: Pt seen and examined at bedside. He is awake but not very interactive. - Current Medication List Current Medications: Active Medications Heparin Sodium (Porcine) (Heparin -) 5,000 unit IVPUSH PRN PRN PRN Reason: APTT (SECONDS) <40 Last Admin: 03/05/20 12:20 Dose: 5,000 unit Documented by: Heparin Sodium (Porcine) (Heparin -) 1,000 unit IVPUSH PRN PRN PRN Reason: APTT (SECONDS) 40-49 Sodium Chloride (1/2 Normal Saline) 1,000 mls @ 100 mls/hr IV [facility]IR [facility] Last Admin: 03/05/20 06:48 Dose: 100 mls/hr Documented by: Heparin Sodium/Dextrose (Heparin Infusion -) 25,000 units in 500 mls @ 20 mls/hr IVPB TITR [facility]; Protocol Last Titration: 03/05/20 12:32 Dose: 1,150 units/hr, 23 mls/hr Documented by: Latanoprost (Xalatan 0.005% Eye Drops -) 1 drop OD DAILY [facility] Last Admin: 03/05/20 11:36 Dose: Not Given Documented by: Phenobarbital (Phenobarbital -) 30 mg PO BID [facility] Last Admin: 03/05/20 11:36 Dose: Not Given Documented by: Sodium Bicarbonate (Sodium Bicarbonate -) 650 mg PO BID [facility] Last Admin: 03/05/20 11:25 Dose: Not Given Documented by: Tamsulosin HCl (Flomax -) 0.4 mg PO DAILY [facility] Last Admin: 03/05/20 11:25 Dose: Not Given Documented by: - Objective Vital Signs: Vital Signs Temperature 98.3 F 03/05/20 13:24 Pulse Rate 75 03/05/20 13:24 Respiratory Rate 20 03/05/20 13:24 Blood Pressure 126/88 03/05/20 13:24 O2 Sat by Pulse Oximetry (%) 98 03/04/20 21:00 Constitutional: Yes: Calm Eyes: Yes: Conjunctiva Clear HENT: Yes: Atraumatic Neck: Yes: Supple Cardiovascular: Yes: S1, S2 Respiratory: Yes: CTA Bilaterally Gastrointestinal: Yes: Soft Genitourinary: Yes: WNL, Incontinence Musculoskeletal: Yes: Muscle Weakness Neurological: Yes: Confusion Labs: CBC, BMP 03/03/20 06:10 03/05/20 07:15 INR, PTT INR 1.04 (0.83-1.09) 03/05/20 07:15 Problem List - Problems (1) DONALDO (acute kidney injury) Code(s): N17.9 - ACUTE KIDNEY FAILURE, UNSPECIFIED (2) Hyperkalemia Code(s): E87.5 - HYPERKALEMIA Assessment/Plan Current Medications Generic Name Dose Route Start Last Admin Trade Name Freq PRN Reason Stop Dose Admin Heparin Sodium (Porcine) 5,000 unit 03/04/20 22:30 03/05/20 12:20 Heparin - IVPUSH 5,000 unit PRN PRN Administration APTT (SECONDS) <40 Heparin Sodium (Porcine) 1,000 unit 03/04/20 22:30 Heparin - IVPUSH PRN PRN APTT (SECONDS) 40-49 Sodium Chloride 1,000 mls @ 100 mls/hr 03/04/20 17:30 03/05/20 06:48 1/2 Normal Saline IV 100 mls/hr [facility] Administration Heparin Sodium/Dextrose 25,000 units in 500 mls @ 20 mls/hr 03/04/20 22:15 03/05/20 12:32 Heparin Infusion - IVPB 1,150 units/hr TITR [facility] 23 mls/hr Titration Protocol 1,000 UNITS/HR Latanoprost 1 drop 03/03/20 10:00 03/05/20 11:36 Xalatan 0.005% Eye Drops - OD Not Given DAILY [facility] Phenobarbital 30 mg 03/04/20 23:00 03/05/20 11:36 Phenobarbital - PO Not Given BID [facility] Sodium Bicarbonate 650 mg 03/03/20 14:00 03/05/20 11:25 Sodium Bicarbonate - PO Not Given BID [facility] Tamsulosin HCl 0.4 mg 03/03/20 10:00 03/05/20 11:25 Flomax - PO Not Given DAILY [facility] Impression 1. DONALDO 2. hyperkalemia 3. met acidosis 4. 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 epilepsy 7. dementia 8. anemia Plan - renal function stabilizing - potassium improved - decrease rate of fluids - repeat labs in am - monitor mental status - check cpk - follow urine studies - donaldo likely in part pre-renal
[2020-03-05] MEDS: HEPARIN INFUSION - 25,000 UNITS/500 ML INFUS.BAG IVPB SCH (22:28)
[2020-03-06 07:34] LABS: HEMATOCRIT 18.4 % (35.4-49); MCH 32.6 pg (25.7-33.7); MCHC 34.1 g/dl (32.0-35.9); MEAN CELL VOLUME 95.6 fl (80-96); MEAN PLT VOLUME 7.8 fl (7.5-11.1); PLATELET COUNT 141 K/MM3 (134-434); RBC 1.93 M/mm3 (4.00-5.60); RDW 13.7 % (11.9-15.9)
[2020-03-06 08:03] LABS: ALBUMIN 2.2 g/dl (3.4-5.0); BILIRUBIN,TOTAL 0.3 mg/dL (0.2-1); BLOOD UREA NITROGEN 42.4 mg/dL (7-18); CALCIUM 8.1 mg/dL (8.5-10.1); CREATININE 2.1 mg/dL (0.55-1.3); POTASSIUM 3.9 mmol/L (3.5-5.1); TOT PROT 6.7 g/dl (6.4-8.2)
[2020-03-06 08:24] LABS: HEMOGLOBIN 6.3 GM/dL (11.7-16.9)
[2020-03-06] MEDS: LATANOPROST 0.005% OPHTH SOLN 2.5ML BOTTLE OD SCH (09:51)
[2020-03-06] MEDS: PHENobarbital 30 MG TABLET PO SCH ×2 (09:51→22:16)
[2020-03-06] MEDS: SODIUM BICARBONATE 650 MG TABLET PO SCH ×2 (09:51→22:16)
[2020-03-06] MEDS: TAMSULOSIN HCL 0.4 MG CAP PO SCH (09:51)
--- NOTE | 2020-03-06 10:26 | PN ---
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, Physician History of Present Illness: Pt seen/ examined Awake No distress Chronic ill appearance On Heparin drip no obvious bleeding Palliative consult appreciated decreased h/h - Current Medication List Current Medications: Active Medications Heparin Sodium (Porcine) (Heparin -) 5,000 unit IVPUSH PRN PRN PRN Reason: APTT (SECONDS) <40 Last Admin: 03/05/20 12:20 Dose: 5,000 unit Documented by: Heparin Sodium (Porcine) (Heparin -) 1,000 unit IVPUSH PRN PRN PRN Reason: APTT (SECONDS) 40-49 Heparin Sodium/Dextrose (Heparin Infusion -) 25,000 units in 500 mls @ 20 mls/hr IVPB TITR [facility]; Protocol Last Titration: 03/05/20 22:28 Dose: 1,050 units/hr, 21 mls/hr Documented by: Sodium Chloride (1/2 Normal Saline) 1,000 mls @ 75 mls/hr IV ASDIR [facility] Last Admin: 03/05/20 20:52 Dose: 75 mls/hr Documented by: Latanoprost (Xalatan 0.005% Eye Drops -) 1 drop OD DAILY [facility] Last Admin: 03/06/20 09:51 Dose: 1 drop Documented by: Phenobarbital (Phenobarbital -) 30 mg PO BID [facility] Last Admin: 03/06/20 09:51 Dose: 30 mg Documented by: Sodium Bicarbonate (Sodium Bicarbonate -) 650 mg PO BID [facility] Last Admin: 03/06/20 09:51 Dose: 650 mg Documented by: Tamsulosin HCl (Flomax -) 0.4 mg PO DAILY [facility] Last Admin: 03/06/20 09:51 Dose: 0.4 mg Documented by: - Objective Vital Signs: Vital Signs Temperature 98.1 F 03/06/20 10:00 Pulse Rate 84 03/06/20 10:00 Respiratory Rate 20 03/06/20 10:00 Blood Pressure 127/62 03/06/20 10:00 O2 Sat by Pulse Oximetry (%) 100 03/06/20 09:00 Constitutional: Yes: No Distress Eyes: Yes: Conjunctiva Clear Neck: Yes: Supple Cardiovascular: Yes: Regular Rate and Rhythm Respiratory: Yes: Diminished Gastrointestinal: Yes: Soft Edema: No Neurological: Yes: Alert Labs: CBC, BMP 03/06/20 06:40 03/06/20 06:40 INR, PTT INR 1.04 (0.83-1.09) 03/05/20 07:15 Problem List - Problems (1) Lung cancer, primary, with metastasis from lung to other site Code(s): C34.90 - MALIGNANT NEOPLASM OF UNSP PART OF UNSP BRONCHUS OR LUNG (2) DVT (deep venous thrombosis) Code(s): I82.409 - ACUTE EMBOLISM AND THOMBOS UNSP DEEP VN UNSP LOWER EXTREMITY (3) DONALDO (acute kidney injury) Code(s): N17.9 - ACUTE KIDNEY FAILURE, UNSPECIFIED (4) Toxic metabolic encephalopathy Code(s): G92 - TOXIC ENCEPHALOPATHY Assessment/Plan Multiple issues as Listed 1. Acute Renal failure-- getting better 2. 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 Anemia Will transfuse today stool for occult blood Continue present care Condition guarded Will follow Oncology to follow
--- NOTE | 2020-03-06 11:59 | PN ---
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, Physician Chief Complaint: Acute kidney injury History of Present Illness: Seen and examined at the bedside awake and alert on IVF on thickened liquids offers no acute complaints - Current Medication List Current Medications: Active Medications Heparin Sodium (Porcine) (Heparin -) 5,000 unit IVPUSH PRN PRN PRN Reason: APTT (SECONDS) <40 Last Admin: 03/05/20 12:20 Dose: 5,000 unit Documented by: Heparin Sodium (Porcine) (Heparin -) 1,000 unit IVPUSH PRN PRN PRN Reason: APTT (SECONDS) 40-49 Heparin Sodium/Dextrose (Heparin Infusion -) 25,000 units in 500 mls @ 20 mls/hr IVPB TITR [facility]; Protocol Last Titration: 03/05/20 22:28 Dose: 1,050 units/hr, 21 mls/hr Documented by: Sodium Chloride (1/2 Normal Saline) 1,000 mls @ 75 mls/hr IV ASDIR [facility] Last Admin: 03/05/20 20:52 Dose: 75 mls/hr Documented by: Latanoprost (Xalatan 0.005% Eye Drops -) 1 drop OD DAILY [facility] Last Admin: 03/06/20 09:51 Dose: 1 drop Documented by: Phenobarbital (Phenobarbital -) 30 mg PO BID [facility] Last Admin: 03/06/20 09:51 Dose: 30 mg Documented by: Sodium Bicarbonate (Sodium Bicarbonate -) 650 mg PO BID [facility] Last Admin: 03/06/20 09:51 Dose: 650 mg Documented by: Tamsulosin HCl (Flomax -) 0.4 mg PO DAILY [facility] Last Admin: 03/06/20 09:51 Dose: 0.4 mg Documented by: - Objective Vital Signs: Vital Signs Temperature 98.1 F 03/06/20 10:00 Pulse Rate 84 03/06/20 10:00 Respiratory Rate 20 03/06/20 10:00 Blood Pressure 127/62 03/06/20 10:00 O2 Sat by Pulse Oximetry (%) 100 03/06/20 09:00 Constitutional: Yes: No Distress HENT: Yes: Atraumatic Neck: Yes: Supple Cardiovascular: Yes: Regular Rate and Rhythm Respiratory: Yes: Diminished Extremities: No: Cold, Cool, Cyanosis Edema: No Neurological: Yes: Alert Labs: CBC, BMP 03/06/20 06:40 03/06/20 06:40 INR, PTT INR 1.04 (0.83-1.09) 03/05/20 07:15 Assessment/Plan Impression 1. DONALDO 2. hyperkalemia 3. met acidosis 4. 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 epilepsy 7. dementia 8. anemia Plan Renal function improving Continue 1/2 NS at the present rate there are no overt electrolyte or acid/base disturbances noted Trend renal function and electrolytes daily Curtis Cowan DO
--- NOTE | 2020-03-06 16:22 | PN.HO ---
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 (short form) - Note 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: PAtient seen and examiend Mumbling, incoherent AFVSS Cor: RSR, No murmurs, No gallops Lungs: Clear to P&A Abd: Soft, Normal bowel sounds, No organomegaly Ext:No significant edema Labs/MEds reviewed A/P 1. DONALDO 2. hyperkalemia 3. met acidosis 4. h/o lung cancer with mets 5. 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 epilepsy 7. dementia 8. anemia 69 y/o patient, h/o lung cancer, on chemotherapy admitted with renal failure, anemia, CT a/p -- rt. renal mass suspicious for neoplasm aswell COVID testing negative
[2020-03-06] MEDS: HEPARIN INFUSION - 25,000 UNITS/500 ML INFUS.BAG IVPB SCH (22:16)
[2020-03-06] MEDS: HEPARIN NA (PORCINE) 5,000 UNITS/ML 1ML VIAL IVPUSH PRN ×2 (22:48→22:49)
[2020-03-07] MEDS: HEPARIN INFUSION - 25,000 UNITS/500 ML INFUS.BAG IVPB SCH ×3 (04:15→22:15)
[2020-03-07] MEDS: SODIUM CHLORIDE 0.45% 1,000 ML IV SCH ×3 (08:16→21:39)
[2020-03-07 08:45] LABS: BASO % 0.1 % (0-2.0); HEMATOCRIT 24.6 % (35.4-49); HEMOGLOBIN 8.4 GM/dL (11.7-16.9); LYMPH % 22.7 % (8-40); MCHC 34.1 g/dl (32.0-35.9); MEAN CELL VOLUME 93.8 fl (80-96); MEAN PLT VOLUME 7.9 fl (7.5-11.1); MONO % 20.6 % (3.8-10.2); NEUT % 56.6 % (42.8-82.8); PLATELET COUNT 159 K/MM3 (134-434); RBC 2.62 M/mm3 (4.00-5.60); RDW 15.1 % (11.9-15.9); WHITE BLOOD COUNT 3.8 K/mm3 (4.0-10.0)
[2020-03-07 09:18] LABS: ALBUMIN 2.3 g/dl (3.4-5.0); BILIRUBIN,TOTAL 0.5 mg/dL (0.2-1); BLOOD UREA NITROGEN 30.1 mg/dL (7-18); CALCIUM 8.3 mg/dL (8.5-10.1); CREATININE 1.8 mg/dL (0.55-1.3); POTASSIUM 3.8 mmol/L (3.5-5.1)
[2020-03-07] MEDS: PHENobarbital 30 MG TABLET PO SCH ×2 (09:20→21:40)
[2020-03-07] MEDS: TAMSULOSIN HCL 0.4 MG CAP PO SCH (09:20)
[2020-03-07] MEDS: SODIUM BICARBONATE 650 MG TABLET PO SCH ×2 (09:20→21:40)
[2020-03-07] MEDS: LATANOPROST 0.005% OPHTH SOLN 2.5ML BOTTLE OD SCH (09:21)
[2020-03-07 10:47] LABS: ANISOCYTOSIS 1+; MACROCYTOSIS 0; OVALOCYTE 1+; PLATELET ESTIMATE DECREASED; TOXIC GRANULATION 1+
--- NOTE | 2020-03-07 10:52 | PN ---
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, Physician History of Present Illness: Pt seen/ examined Awake No distress Chronic ill appearance On Heparin drip no obvious bleeding but constipated as no BM got Transfusion yesterday - Current Medication List Current Medications: Active Medications Heparin Sodium (Porcine) (Heparin -) 5,000 unit IVPUSH PRN PRN PRN Reason: APTT (SECONDS) <40 Last Admin: 03/06/20 22:48 Dose: 5,000 unit Documented by: Heparin Sodium (Porcine) (Heparin -) 1,000 unit IVPUSH PRN PRN PRN Reason: APTT (SECONDS) 40-49 Last Admin: 03/06/20 22:49 Dose: 1,000 unit Documented by: Heparin Sodium/Dextrose (Heparin Infusion -) 25,000 units in 500 mls @ 20 mls/hr IVPB TITR [facility]; Protocol Last Admin: 03/07/20 09:34 Dose: 1,250 units/hr, 25 mls/hr Documented by: Sodium Chloride (1/2 Normal Saline) 1,000 mls @ 75 mls/hr IV ASDIR [facility] Last Admin: 03/07/20 08:16 Dose: 75 mls/hr Documented by: Latanoprost (Xalatan 0.005% Eye Drops -) 1 drop OD DAILY [facility] Last Admin: 03/07/20 09:21 Dose: 1 drop Documented by: Phenobarbital (Phenobarbital -) 30 mg PO BID [facility] Last Admin: 03/07/20 09:20 Dose: 30 mg Documented by: Senna (Senna Oral Solution -) 8.8 mg PO [facility] Sodium Bicarbonate (Sodium Bicarbonate -) 650 mg PO BID [facility] Last Admin: 03/07/20 09:20 Dose: 650 mg Documented by: Tamsulosin HCl (Flomax -) 0.4 mg PO DAILY [facility] Last Admin: 03/07/20 09:20 Dose: 0.4 mg Documented by: Warfarin Sodium (Coumadin -) 5 mg PO DAILY@1800 [facility] - Objective Vital Signs: Vital Signs Temperature 98.8 F 03/07/20 09:50 Pulse Rate 62 03/07/20 09:50 Respiratory Rate 20 03/07/20 09:50 Blood Pressure 141/64 03/07/20 09:50 O2 Sat by Pulse Oximetry (%) 100 03/07/20 09:00 Constitutional: Yes: No Distress Eyes: Yes: Conjunctiva Clear Neck: Yes: Supple Cardiovascular: Yes: Regular Rate and Rhythm Respiratory: Yes: Diminished Gastrointestinal: Yes: Soft Edema: LLE: Trace, RLE: Trace Neurological: Yes: Alert Labs: CBC, BMP 03/07/20 08:00 03/07/20 08:00 INR, PTT INR 1.04 (0.83-1.09) 03/05/20 07:15 Problem List - Problems (1) Lung cancer, primary, with metastasis from lung to other site Code(s): C34.90 - MALIGNANT NEOPLASM OF UNSP PART OF UNSP BRONCHUS OR LUNG (2) DVT (deep venous thrombosis) Code(s): I82.409 - ACUTE EMBOLISM AND THOMBOS UNSP DEEP VN UNSP LOWER EXTREMITY (3) DONALDO (acute kidney injury) Code(s): N17.9 - ACUTE KIDNEY FAILURE, UNSPECIFIED (4) Toxic metabolic encephalopathy Code(s): G92 - TOXIC ENCEPHALOPATHY Assessment/Plan Multiple issues as Listed 1. Acute Renal failure-- getting better 2. 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 Anemia 6. Elevated liver enzymes stool for occult blood Continue present care start on coumadin maintain reyes stool softners Condition guarded Will follow Oncology to follow d/w Rn also
--- NOTE | 2020-03-07 11:05 | PN ---
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, Physician Chief Complaint: Acute kidney injury History of Present Illness: Seen and examined at the bedside awake and alert on IVF on thickened liquids offers no acute complaints - Current Medication List Current Medications: Active Medications Heparin Sodium (Porcine) (Heparin -) 5,000 unit IVPUSH PRN PRN PRN Reason: APTT (SECONDS) <40 Last Admin: 03/06/20 22:48 Dose: 5,000 unit Documented by: Heparin Sodium (Porcine) (Heparin -) 1,000 unit IVPUSH PRN PRN PRN Reason: APTT (SECONDS) 40-49 Last Admin: 03/06/20 22:49 Dose: 1,000 unit Documented by: Heparin Sodium/Dextrose (Heparin Infusion -) 25,000 units in 500 mls @ 20 mls/hr IVPB TITR [facility]; Protocol Last Admin: 03/07/20 09:34 Dose: 1,250 units/hr, 25 mls/hr Documented by: Sodium Chloride (1/2 Normal Saline) 1,000 mls @ 75 mls/hr IV ASDIR [facility] Last Admin: 03/07/20 08:16 Dose: 75 mls/hr Documented by: Latanoprost (Xalatan 0.005% Eye Drops -) 1 drop OD DAILY [facility] Last Admin: 03/07/20 09:21 Dose: 1 drop Documented by: Phenobarbital (Phenobarbital -) 30 mg PO BID [facility] Last Admin: 03/07/20 09:20 Dose: 30 mg Documented by: Senna (Senna Oral Solution -) 8.8 mg PO [facility] Sodium Bicarbonate (Sodium Bicarbonate -) 650 mg PO BID [facility] Last Admin: 03/07/20 09:20 Dose: 650 mg Documented by: Tamsulosin HCl (Flomax -) 0.4 mg PO DAILY [facility] Last Admin: 03/07/20 09:20 Dose: 0.4 mg Documented by: Warfarin Sodium (Coumadin -) 5 mg PO DAILY@1800 [facility] - Objective Vital Signs: Vital Signs Temperature 98.8 F 03/07/20 09:50 Pulse Rate 62 03/07/20 09:50 Respiratory Rate 20 03/07/20 09:50 Blood Pressure 141/64 03/07/20 09:50 O2 Sat by Pulse Oximetry (%) 100 03/07/20 09:00 Constitutional: Yes: No Distress HENT: Yes: Atraumatic Neck: Yes: Supple Cardiovascular: Yes: Regular Rate and Rhythm Respiratory: Yes: Regular Gastrointestinal: Yes: Soft Extremities: No: Cyanosis Edema: No Labs: CBC, BMP 03/07/20 08:00 03/07/20 08:00 INR, PTT INR 1.04 (0.83-1.09) 03/05/20 07:15 Assessment/Plan Impression 1. DONALDO 2. hyperkalemia 3. met acidosis 4. 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 epilepsy 7. dementia 8. anemia Plan Renal function improving Continue 1/2 NS, decrease rate start oral sodium bicarb there are no overt electrolyte or acid/base disturbances noted Trend renal function and electrolytes daily Curtis Cowan DO
[2020-03-07 18:11] LABS: INR 1.07 (0.83-1.09); PROTHROMBIN TIME (PATIENT) 12.6 SEC (9.7-13.0)
[2020-03-07 18:13] LABS: ACTIVATED PTT 58.9 SECONDS (25.2-36.5)
[2020-03-07] MEDS: WARFARIN NA 5 MG TABLET PO SCH (18:37)
[2020-03-07] MEDS: SENNOSIDES 8.8 MG/5 ML BULK BOTTLE PO SCH (21:41)
[2020-03-08 07:37] LABS: BASO % 0.1 % (0-2.0); LYMPH % 24.1 % (8-40); MCH 32.4 pg (25.7-33.7); MCHC 34.4 g/dl (32.0-35.9); MEAN CELL VOLUME 94.1 fl (80-96); MEAN PLT VOLUME 8.3 fl (7.5-11.1); MONO % 25.1 % (3.8-10.2); NEUT % 50.7 % (42.8-82.8); PLATELET COUNT 138 K/MM3 (134-434); RBC 2.15 M/mm3 (4.00-5.60); RDW 14.8 % (11.9-15.9); WHITE BLOOD COUNT 3.5 K/mm3 (4.0-10.0)
[2020-03-08 07:58] LABS: INR 1.13 (0.83-1.09); PROTHROMBIN TIME (PATIENT) 13.3 SEC (9.7-13.0)
[2020-03-08 08:28] LABS: HEMATOCRIT 20.2 % (35.4-49)
[2020-03-08 08:40] LABS: BILIRUBIN,TOTAL 0.8 mg/dL (0.2-1); BLOOD UREA NITROGEN 23.1 mg/dL (7-18); CALCIUM 7.8 mg/dL (8.5-10.1); CREATININE 1.7 mg/dL (0.55-1.3); POTASSIUM 3.3 mmol/L (3.5-5.1)
[2020-03-08] MEDS: HEPARIN INFUSION - 25,000 UNITS/500 ML INFUS.BAG IVPB SCH ×2 (09:18→22:21)
[2020-03-08] MEDS: PHENobarbital 30 MG TABLET PO SCH ×2 (09:20→22:19)
[2020-03-08] MEDS: TAMSULOSIN HCL 0.4 MG CAP PO SCH (09:20)
[2020-03-08] MEDS: SODIUM BICARBONATE 650 MG TABLET PO SCH ×3 (09:20→22:20)
[2020-03-08] MEDS: LATANOPROST 0.005% OPHTH SOLN 2.5ML BOTTLE OD SCH (09:21)
--- NOTE | 2020-03-08 11:11 | PN ---
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 (short form) - Note 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: Palliative care f/up 69yo M from [facility] with PMH metastatic lung cancer on chemo, renal mass ? RCC, COPD, seizures on phenobarbital, dementia, anemia (last hb 6.7 on 02/26/20), neuropathy on gabapentin, who was BIBEMS to [facility] on 03/02 for "FTT, AMS, and abnormal labs." Per [place] chart, patient has had a recent functional decline and has been refusing chemo. He was admitted with disorientation and confusion and at baseline as per family he is able to converse and is oriented x1-2. He held multiple jobs till a few years ago and has not been in close contact with his family. He was diagnosed with lung cancer 4 years ago and underwent sx , ? chemo / radiation at that time. He has been in [facility] since then. He was on chemotherapy currently and last reported treatment was on 02/11/20. He has had a functional decline, decreased appetite, not able to get out of bed, more confused. He refused his most recent chemotherapy session as per long term records. He was found to have severe anemia, pancytopenia ( not neutropenic), hypernatremia, hyperchloremia, DONALDO, acidosis, hepatitis, rhabdo and hyperkalemia. CT abdo/ pelvis- 5.7 x 4.4 cm neoplastic mass rt renal pole, dilated CBD 12 mm, pancreatic duct 4 mm- MRCP recommended. CTH mild soft tissue swelling lat/ sup margin rt orbit- ? mets. CT chest- severe COPD, no mass, no mets. He is s/p PRBC, iv hydration with some improvement in renal functions and electrolyte derangements. He has been downgraded to pureed diet with thin liquids. He was found to have DVT rt brachial vein and is now on heparin drip. He is being followed by renal/ haem-onc. His primary oncologist is in [facility] as per his sister Dai Childers. He is s/p PRBC over the weekend for Hb of 6.3 stool guiac neg on heparin drip for DVT renal function improving worsening LFT poor appetite- dysgeusia AAO x1 NAD VSS afebrile MMM chest- CTAB P/A soft no c/c/e primary lung cancer with ? recurrence- on chemo currently with pancytopenia, severe anemia requiring multiple transfusions- anemia: ? myelosuppression iron studies s/o chronic disease-- CKD- no evidence of hemolysis Renal mass- neoplastic abnormalities seen on CT abdo and CTH- ? metastasis, abnl LFT dysphagia, FTT, cognitive decline, dehydration with DONALDO, rhabdo, hepatitis severe COPD Rt brachial vein DVT Mr Dupont was diagnosed with lung cancer 3 years ago and has been in [facility] the past 3 years. He does not have any advanced directives. We discussed the kidney mass along with the lung cancer and abnl findings in pancreas and CT brain. His last chemo was on 02/10 as per the chart and he has been declining since, bed bound, decreased appetite and cognitive decline. He has renal mass,? liver mets, ? MDS, myelosuppression vs anemia of chr disease in setting of dementia, poor appetite and FTT It will be useful at this point to have a discussion with pt's oncologist regarding his overall prognosis. If he is not a candidate for further chemotherapy he would be suitable for hospice care. Overall prognosis guarded in view of possible second malignancy and overall physical and cognitive decline. Mr Dupont does not have a HCP and does not have advanced directives. Family is requesting an in person conference as they might have more questions regarding his prognosis, possible hospice care- will try to arrange. Possible meeting tomorrow or sunday. Chadd has a sister Cori Dupont who lives in [place]. Chadd has never been but he does have daughter he is estranged from for greater then 5 years. Dai Sainz's last known address and will attempt to locate. Chadd does not have a HCP and siblings concerned about surrogate law in [facility]. Family expressing he would want all supportive measures at this point. Diego Angel ( palliative care nurse) phone number for "Alejandro Valiente as primary special needs child caregiver who he thought may have a HCP on file" Supportive care to continue. Prognosis guarded. Will follow. Problem List - Problems (1) DONALDO (acute kidney injury) Code(s): N17.9 - ACUTE KIDNEY FAILURE, UNSPECIFIED (2) DVT (deep venous thrombosis) Code(s): I82.409 - ACUTE EMBOLISM AND THOMBOS UNSP DEEP VN UNSP LOWER EXTREMITY (3) Lung cancer, primary, with metastasis from lung to other site Code(s): C34.90 - MALIGNANT NEOPLASM OF UNSP PART OF UNSP BRONCHUS OR LUNG (4) Renal cancer Code(s): C64.9 - MALIGNANT NEOPLASM OF UNSP KIDNEY, EXCEPT RENAL PELVIS (5) Toxic metabolic encephalopathy Code(s): G92 - TOXIC ENCEPHALOPATHY
[2020-03-08 12:18] LABS: OVALOCYTE 1+; ROULEAU 1+; SMUDGE CELLS 5
[2020-03-08] MEDS ORDERED: POTASSIUM CHLORIDE ORAL LIQUID 20 MEQ/15 ML PO ONE (13:43)
--- NOTE | 2020-03-08 13:43 | PN ---
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, Physician History of Present Illness: Pt seen and examined at bedside. He is more awake and interactive. - Current Medication List Current Medications: Active Medications Heparin Sodium (Porcine) (Heparin -) 5,000 unit IVPUSH PRN PRN PRN Reason: APTT (SECONDS) <40 Last Admin: 03/06/20 22:48 Dose: 5,000 unit Documented by: Heparin Sodium (Porcine) (Heparin -) 1,000 unit IVPUSH PRN PRN PRN Reason: APTT (SECONDS) 40-49 Last Admin: 03/06/20 22:49 Dose: 1,000 unit Documented by: Heparin Sodium/Dextrose (Heparin Infusion -) 25,000 units in 500 mls @ 20 mls/hr IVPB TITR [facility]; Protocol Last Admin: 03/08/20 09:18 Dose: 1,250 units/hr, 25 mls/hr Documented by: Sodium Chloride (1/2 Normal Saline) 1,000 mls @ 60 mls/hr IV ASDIR [facility] Last Admin: 03/07/20 21:39 Dose: 60 mls/hr Documented by: Latanoprost (Xalatan 0.005% Eye Drops -) 1 drop OD DAILY [facility] Last Admin: 03/08/20 09:21 Dose: 1 drop Documented by: Phenobarbital (Phenobarbital -) 30 mg PO BID [facility] Last Admin: 03/08/20 09:20 Dose: 30 mg Documented by: Senna (Senna Oral Solution -) 8.8 mg PO HS [facility] Last Admin: 03/07/20 21:41 Dose: 8.8 mg Documented by: Sodium Bicarbonate (Sodium Bicarbonate -) 1,300 mg PO BID [facility] Last Admin: 03/08/20 09:20 Dose: 1,300 mg Documented by: Tamsulosin HCl (Flomax -) 0.4 mg PO DAILY [facility] Last Admin: 03/08/20 09:20 Dose: 0.4 mg Documented by: Warfarin Sodium (Coumadin -) 5 mg PO DAILY@1800 [facility] Last Admin: 03/07/20 18:37 Dose: 5 mg Documented by: - Objective Vital Signs: Vital Signs Temperature 98.7 F 03/08/20 06:00 Pulse Rate 64 03/08/20 06:00 Respiratory Rate 18 03/08/20 06:00 Blood Pressure 126/60 03/08/20 06:00 O2 Sat by Pulse Oximetry (%) 99 07/12/20 21:00 Constitutional: Yes: Calm Eyes: Yes: Conjunctiva Clear HENT: Yes: Atraumatic Neck: Yes: Supple Cardiovascular: Yes: S1, S2 Respiratory: Yes: CTA Bilaterally Gastrointestinal: Yes: Normal Bowel Sounds, Soft Genitourinary: Yes: Marie Present Musculoskeletal: Yes: Muscle Weakness Edema: No Neurological: Yes: Confusion Labs: CBC, BMP 03/08/20 06:48 03/08/20 06:48 INR, PTT INR 1.13 (0.83-1.09) H 03/08/20 06:48 Problem List - Problems (1) DONALDO (acute kidney injury) Code(s): N17.9 - ACUTE KIDNEY FAILURE, UNSPECIFIED (2) Hyperkalemia Code(s): E87.5 - HYPERKALEMIA Assessment/Plan Current Medications Generic Name Dose Route Start Last Admin Trade Name Freq PRN Reason Stop Dose Admin Heparin Sodium (Porcine) 5,000 unit 03/04/20 22:30 03/06/20 22:48 Heparin - IVPUSH 5,000 unit PRN PRN Administration APTT (SECONDS) <40 Heparin Sodium (Porcine) 1,000 unit 03/04/20 22:30 03/06/20 22:49 Heparin - IVPUSH 1,000 unit PRN PRN Administration APTT (SECONDS) 40-49 Heparin Sodium/Dextrose 25,000 units in 500 mls @ 20 mls/hr 03/04/20 22:15 03/08/20 09:18 Heparin Infusion - IVPB 1,250 units/hr TITR [facility] 25 mls/hr Administration Protocol 1,000 UNITS/HR Sodium Chloride 1,000 mls @ 60 mls/hr 03/07/20 11:06 03/07/20 21:39 1/2 Normal Saline IV 60 mls/hr [facility] Administration Latanoprost 1 drop 03/03/20 10:00 03/08/20 09:21 Xalatan 0.005% Eye Drops - OD 1 drop DAILY [facility] Administration Phenobarbital 30 mg 03/04/20 23:00 03/08/20 09:20 Phenobarbital - PO 30 mg BID [facility] Administration Senna 8.8 mg 03/07/20 22:00 03/07/20 21:41 Senna Oral Solution - PO 8.8 mg HS [facility] Administration Sodium Bicarbonate 1,300 mg 03/07/20 11:05 03/08/20 09:20 Sodium Bicarbonate - PO 1,300 mg BID [facility] Administration Tamsulosin HCl 0.4 mg 03/03/20 10:00 03/08/20 09:20 Flomax - PO 0.4 mg DAILY [facility] Administration Warfarin Sodium 5 mg 03/07/20 18:00 03/07/20 18:37 Coumadin - PO 5 mg DAILY@1800 [facility] Administration Impression 1. DONALDO 2. hyperkalemia 3. met acidosis 4. 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 epilepsy 7. dementia 8. anemia Plan - renal function improving - decrease fluids - replace potassium - repeat labs in am - encourage po intake - repeat cpk alessandra - donaldo likely in part pre-renal
--- NOTE | 2020-03-08 14:33 | PN ---
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, Physician History of Present Illness: Pt seen/ examined Awake No distress Chronic ill appearance On Heparin drip no obvious bleeding stool for occult -ve Hb - 7 Transfusion ordered Palliative team also following-- Discussed with team also - Current Medication List Current Medications: Active Medications Heparin Sodium (Porcine) (Heparin -) 5,000 unit IVPUSH PRN PRN PRN Reason: APTT (SECONDS) <40 Last Admin: 03/06/20 22:48 Dose: 5,000 unit Documented by: Heparin Sodium (Porcine) (Heparin -) 1,000 unit IVPUSH PRN PRN PRN Reason: APTT (SECONDS) 40-49 Last Admin: 03/06/20 22:49 Dose: 1,000 unit Documented by: Heparin Sodium/Dextrose (Heparin Infusion -) 25,000 units in 500 mls @ 20 mls/hr IVPB TITR [facility]; Protocol Last Admin: 03/08/20 09:18 Dose: 1,250 units/hr, 25 mls/hr Documented by: Sodium Chloride (1/2 Normal Saline) 1,000 mls @ 40 mls/hr IV ASDIR [facility] Latanoprost (Xalatan 0.005% Eye Drops -) 1 drop OD DAILY [facility] Last Admin: 03/08/20 09:21 Dose: 1 drop Documented by: Phenobarbital (Phenobarbital -) 30 mg PO BID [facility] Last Admin: 03/08/20 09:20 Dose: 30 mg Documented by: Senna (Senna Oral Solution -) 8.8 mg PO HS [facility] Last Admin: 03/07/20 21:41 Dose: 8.8 mg Documented by: Sodium Bicarbonate (Sodium Bicarbonate -) 650 mg PO TID [facility] Tamsulosin HCl (Flomax -) 0.4 mg PO DAILY [facility] Last Admin: 03/08/20 09:20 Dose: 0.4 mg Documented by: Warfarin Sodium (Coumadin -) 5 mg PO DAILY@1800 [facility] Last Admin: 03/07/20 18:37 Dose: 5 mg Documented by: - Objective Vital Signs: Vital Signs Temperature 98.9 F 03/08/20 14:02 Pulse Rate 64 03/08/20 14:02 Respiratory Rate 18 03/08/20 14:02 Blood Pressure 138/93 03/08/20 14:02 O2 Sat by Pulse Oximetry (%) 99 03/07/20 21:00 Constitutional: Yes: Calm Neck: Yes: Supple Cardiovascular: Yes: Regular Rate and Rhythm Respiratory: Yes: Diminished Gastrointestinal: Yes: Soft Edema: No Neurological: Yes: Alert Labs: CBC, BMP 03/08/20 06:48 03/08/20 06:48 INR, PTT INR 1.13 (0.83-1.09) H 03/08/20 06:48 Problem List - Problems (1) Lung cancer, primary, with metastasis from lung to other site Code(s): C34.90 - MALIGNANT NEOPLASM OF UNSP PART OF UNSP BRONCHUS OR LUNG (2) DVT (deep venous thrombosis) Code(s): I82.409 - ACUTE EMBOLISM AND THOMBOS UNSP DEEP VN UNSP LOWER EXTREMITY (3) DONALDO (acute kidney injury) Code(s): N17.9 - ACUTE KIDNEY FAILURE, UNSPECIFIED (4) Toxic metabolic encephalopathy Code(s): G92 - TOXIC ENCEPHALOPATHY Assessment/Plan Multiple issues as Listed 1. Acute Renal failure-- getting better 2. 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 Anemia 6. Elevated liver enzymes stool for occult blood -ve Continue present care started on coumadin with caution maintain reyes stool softners Condition guarded Will follow Oncology to follow transfusion d/w Rn also
[2020-03-08] MEDS: SODIUM CHLORIDE 0.45% 1,000 ML IV SCH (16:44)
[2020-03-08] MEDS: WARFARIN NA 5 MG TABLET PO SCH (19:21)
[2020-03-08] MEDS: SENNOSIDES 8.8 MG/5 ML BULK BOTTLE PO SCH (22:20)
--- NOTE | 2020-03-09 03:25 | PN ---
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 (short form) - Note 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: Spoke with patients sister--- for family meeting on 03/10
[2020-03-09] MEDS: SODIUM BICARBONATE 650 MG TABLET PO SCH ×2 (05:09→17:14)
[2020-03-09 07:07] LABS: HEMATOCRIT 22.9 % (35.4-49); MCH 32.7 pg (25.7-33.7); MCHC 34.9 g/dl (32.0-35.9); MEAN CELL VOLUME 93.7 fl (80-96); MEAN PLT VOLUME 8.6 fl (7.5-11.1); PLATELET COUNT 139 K/MM3 (134-434); RBC 2.45 M/mm3 (4.00-5.60); RDW 14.2 % (11.9-15.9); WHITE BLOOD COUNT 3.7 K/mm3 (4.0-10.0)
[2020-03-09 07:09] LABS: INR 1.23 (0.83-1.09); PROTHROMBIN TIME (PATIENT) 14.6 SEC (9.7-13.0)
[2020-03-09 08:01] LABS: BILIRUBIN,TOTAL 0.5 mg/dL (0.2-1); CALCIUM 7.6 mg/dL (8.5-10.1); CREATININE 1.7 mg/dL (0.55-1.3); MAGNESIUM 1.4 mg/dL (1.8-2.4); POTASSIUM 3.5 mmol/L (3.5-5.1); TOT PROT 6.1 g/dl (6.4-8.2)
[2020-03-09] MEDS: TAMSULOSIN HCL 0.4 MG CAP PO SCH (09:35)
[2020-03-09] MEDS: LATANOPROST 0.005% OPHTH SOLN 2.5ML BOTTLE OD SCH (09:35)
[2020-03-09] MEDS: HEPARIN INFUSION - 25,000 UNITS/500 ML INFUS.BAG IVPB SCH ×2 (09:35→23:55)
[2020-03-09] MEDS: PHENobarbital 30 MG TABLET PO SCH ×2 (09:35→21:31)
--- NOTE | 2020-03-09 11:18 | PN ---
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 (short form) - Note 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: Pt examined events noted eating less awake , confused Vital Signs - 24 hr 03/08/20 03/08/20 03/08/20 14:02 21:00 22:00 Temperature 98.9 F 98.5 F Pulse Rate 64 60 Respiratory 18 18 18 Rate Blood Pressure 138/93 152/73 O2 Sat by Pulse 97 Oximetry (%) 03/09/20 05:50 Temperature 98.5 F Pulse Rate 67 Respiratory 18 Rate Blood Pressure 162/76 O2 Sat by Pulse Oximetry (%) Current Medications Generic Name Dose Route Start Last Admin Trade Name Freq PRN Reason Stop Dose Admin Amino Acids 30 ml 03/09/20 17:30 Prosource No Carb Liquid Pkt PO BID@0800,1730 [facility] Dronabinol 5 mg 03/09/20 11:30 Marinol - PO DAILY [facility] Heparin Sodium (Porcine) 5,000 unit 03/04/20 22:30 03/06/20 22:48 Heparin - IVPUSH 5,000 unit PRN PRN Administration APTT (SECONDS) <40 Heparin Sodium (Porcine) 1,000 unit 03/04/20 22:30 03/06/20 22:49 Heparin - IVPUSH 1,000 unit PRN PRN Administration APTT (SECONDS) 40-49 Heparin Sodium/Dextrose 25,000 units in 500 mls @ 20 mls/hr 03/04/20 22:15 03/09/20 09:35 Heparin Infusion - IVPB 1,250 units/hr TITR [facility] 25 mls/hr Administration Protocol 1,000 UNITS/HR Sodium Chloride 1,000 mls @ 40 mls/hr 03/08/20 13:44 03/08/20 16:44 1/2 Normal Saline IV 40 mls/hr [facility] Administration Latanoprost 1 drop 03/03/20 10:00 03/09/20 09:35 Xalatan 0.005% Eye Drops - OD 1 drop DAILY [facility] Administration Phenobarbital 30 mg 03/04/20 23:00 03/09/20 09:35 Phenobarbital - PO 30 mg BID [facility] Administration Senna 8.8 mg 03/07/20 22:00 03/08/20 22:20 Senna Oral Solution - PO 8.8 mg HS [facility] Administration Sodium Bicarbonate 650 mg 03/08/20 14:00 03/09/20 05:09 Sodium Bicarbonate - PO 650 mg TID [facility] Administration Tamsulosin HCl 0.4 mg 03/03/20 10:00 03/09/20 09:35 Flomax - PO 0.4 mg DAILY [facility] Administration Warfarin Sodium 7.5 mg 03/09/20 18:00 Coumadin - PO DAILY@1800 [facility] Laboratory Results - last 24 hr 03/06/20 03/07/20 03/09/20 10:50 08:00 06:00 WBC 3.7 L RBC 2.45 L Hgb 8.0 L Hct 22.5 L 22.9 L MCV 93.7 MCH 32.7 MCHC 34.9 RDW 14.2 Plt Count 139 MPV 8.6 Haptoglobin 332 PT with INR INR PTT (Actin FS) Sodium Potassium Chloride Carbon Dioxide Anion Gap BUN Creatinine Est GFR (CKD-EPI)AfAm Est GFR (CKD-EPI)NonAf Random Glucose Calcium Magnesium Total Bilirubin AST ALT Alkaline Phosphatase Creatine Kinase Total Protein Albumin Folate 1178 Folate Hemolysate 265.0 Blood Type O POSITIVE Antibody Screen Negative Crossmatch See Detail 03/09/20 03/09/20 03/09/20 06:00 06:00 10:26 WBC RBC Hgb Hct MCV MCH MCHC RDW Plt Count MPV Haptoglobin PT with INR 14.60 H 14.10 H INR 1.23 H 1.19 H PTT (Actin FS) Cancelled 58.0 H Sodium 141 Potassium 3.5 Chloride 111 H Carbon Dioxide 22 Anion Gap 8 BUN 18.0 Creatinine 1.7 H Est GFR (CKD-EPI)AfAm 46.98 Est GFR (CKD-EPI)NonAf 40.54 Random Glucose 130 H Calcium 7.6 L Magnesium 1.4 L Total Bilirubin 0.5 AST 125 H ALT 107 H Alkaline Phosphatase 39 L Creatine Kinase 112 Total Protein 6.1 L Albumin 2.0 L Folate Folate Hemolysate Blood Type Antibody Screen Crossmatch S1 S2 RRR cachetic Lungs decreased Abd- soft, NT B/L upper arm edema no leg edema A/P lung CA right renal cell CA acute kidney injury right brachial DVT failure to thrive anemia SZD -- iv fluids -- oncology eval noted -- cultures all negative -- last chemo per [facility] -- 02/11/20 --- appreciate palliative care eval-- family meeting to take place -- increase coumadin -- check INR
[2020-03-09] MEDS ORDERED: MAGNESIUM SULF 50% (8.12 MEQ/2 ML-1 GM VIAL) IVPB ONE (11:19)
[2020-03-09 11:24] LABS: INR 1.19 (0.83-1.09); PROTHROMBIN TIME (PATIENT) 14.1 SEC (9.7-13.0)
--- NOTE | 2020-03-09 12:01 | PN ---
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, ORCHID HAND - Note 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: Selected Entries 03/07/20 03/07/20 03/07/20 09:46 14:49 23:00 Breakfast 25% Diet Tolerated Fair Fair Lunch 25% Supper 25% Temperature Pulse Rate Blood Pressure 03/07/20 03/08/20 03/08/20 23:22 09:23 14:02 Breakfast 0 Diet Tolerated Poor Refused Refused Lunch 0 Supper 25% Temperature Pulse Rate Blood Pressure 03/09/20 05:50 Breakfast Diet Tolerated Lunch Supper Temperature 98.5 F Pulse Rate 67 Blood Pressure 162/76 Laboratory Tests 03/09/20 06:00 WBC 3.7 L On puree/thin liquids Poor PO intake Much improved verbally and cognitively, telling me he needs his hearing aid and dentures and that he dislikes the food. He accepted hot cereal this am, refused lunch, but told me he finished it. Attempted to change his hearing aid battery but correct battery size not available. Suggest- contact family for hearing aid batteries trial chopped reg diet and use dentures mealtime Magic cup RD f/u- provide hot cereal a couple of times daily, other preferences
[2020-03-09] MEDS: DRONABINOL 2.5 MG CAPSULE PO SCH (12:40)
[2020-03-09] MEDS ORDERED: PT OWN MED DRAWER 7, Y5N ONE ×2 (17:09→21:14)
--- NOTE | 2020-03-09 17:11 | PN ---
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, Physician History of Present Illness: Pt seen and examined at bedside. He appears comfortable. - Current Medication List Current Medications: Active Medications Amino Acids (Prosource No Carb Liquid Pkt) 30 ml PO BID@0800,1730 [facility] Dronabinol (Marinol -) 5 mg PO DAILY [facility] Last Admin: 03/09/20 12:40 Dose: 5 mg Documented by: Heparin Sodium (Porcine) (Heparin -) 5,000 unit IVPUSH PRN PRN PRN Reason: APTT (SECONDS) <40 Last Admin: 03/06/20 22:48 Dose: 5,000 unit Documented by: Heparin Sodium (Porcine) (Heparin -) 1,000 unit IVPUSH PRN PRN PRN Reason: APTT (SECONDS) 40-49 Last Admin: 03/06/20 22:49 Dose: 1,000 unit Documented by: Heparin Sodium/Dextrose (Heparin Infusion -) 25,000 units in 500 mls @ 20 mls/hr IVPB TITR [facility]; Protocol Last Admin: 03/09/20 09:35 Dose: 1,250 units/hr, 25 mls/hr Documented by: Sodium Chloride (1/2 Normal Saline) 1,000 mls @ 40 mls/hr IV ASDIR [facility] Last Admin: 03/08/20 16:44 Dose: 40 mls/hr Documented by: Latanoprost (Xalatan 0.005% Eye Drops -) 1 drop OD DAILY [facility] Last Admin: 03/09/20 09:35 Dose: 1 drop Documented by: Phenobarbital (Phenobarbital -) 30 mg PO BID [facility] Last Admin: 03/09/20 09:35 Dose: 30 mg Documented by: Senna (Senna Oral Solution -) 8.8 mg PO HS [facility] Last Admin: 03/08/20 22:20 Dose: 8.8 mg Documented by: Sodium Bicarbonate (Sodium Bicarbonate -) 650 mg PO TID [facility] Last Admin: 03/09/20 05:09 Dose: 650 mg Documented by: Tamsulosin HCl (Flomax -) 0.4 mg PO DAILY [facility] Last Admin: 03/09/20 09:35 Dose: 0.4 mg Documented by: Warfarin Sodium (Coumadin -) 7.5 mg PO DAILY@1800 [facility] - Objective Vital Signs: Vital Signs Temperature 98.6 F 03/09/20 14:26 Pulse Rate 59 L 03/09/20 14:26 Respiratory Rate 18 03/09/20 14:26 Blood Pressure 134/64 03/09/20 14:26 O2 Sat by Pulse Oximetry (%) 97 03/09/20 14:26 Constitutional: Yes: Calm Eyes: Yes: Conjunctiva Clear HENT: Yes: Atraumatic Neck: Yes: Supple Cardiovascular: Yes: S1, S2 Respiratory: Yes: CTA Bilaterally Gastrointestinal: Yes: Soft Genitourinary: Yes: Marie Present Musculoskeletal: Yes: WNL Edema: No Neurological: Yes: Oriented Labs: CBC, BMP 03/09/20 06:00 03/09/20 06:00 INR, PTT INR 1.19 (0.83-1.09) H 03/09/20 10:26 Problem List - Problems (1) DONALDO (acute kidney injury) Code(s): N17.9 - ACUTE KIDNEY FAILURE, UNSPECIFIED (2) Hyperkalemia Code(s): E87.5 - HYPERKALEMIA Assessment/Plan Current Medications Generic Name Dose Route Start Last Admin Trade Name Freq PRN Reason Stop Dose Admin Amino Acids 30 ml 03/09/20 17:30 Prosource No Carb Liquid Pkt PO BID@0800,1730 [facility] Dronabinol 5 mg 03/09/20 11:30 03/09/20 12:40 Marinol - PO 5 mg DAILY [facility] Administration Heparin Sodium (Porcine) 5,000 unit 03/04/20 22:30 03/06/20 22:48 Heparin - IVPUSH 5,000 unit PRN PRN Administration APTT (SECONDS) <40 Heparin Sodium (Porcine) 1,000 unit 03/04/20 22:30 03/06/20 22:49 Heparin - IVPUSH 1,000 unit PRN PRN Administration APTT (SECONDS) 40-49 Heparin Sodium/Dextrose 25,000 units in 500 mls @ 20 mls/hr 03/04/20 22:15 03/09/20 09:35 Heparin Infusion - IVPB 1,250 units/hr TITR [facility] 25 mls/hr Administration Protocol 1,000 UNITS/HR Sodium Chloride 1,000 mls @ 40 mls/hr 03/08/20 13:44 03/08/20 16:44 1/2 Normal Saline IV 40 mls/hr [facility] Administration Latanoprost 1 drop 03/03/20 10:00 03/09/20 09:35 Xalatan 0.005% Eye Drops - OD 1 drop DAILY [facility] Administration Phenobarbital 30 mg 03/04/20 23:00 03/09/20 09:35 Phenobarbital - PO 30 mg BID [facility] Administration Senna 8.8 mg 03/07/20 22:00 03/08/20 22:20 Senna Oral Solution - PO 8.8 mg HS [facility] Administration Sodium Bicarbonate 650 mg 03/08/20 14:00 03/09/20 05:09 Sodium Bicarbonate - PO 650 mg TID [facility] Administration Tamsulosin HCl 0.4 mg 03/03/20 10:00 03/09/20 09:35 Flomax - PO 0.4 mg DAILY [facility] Administration Warfarin Sodium 7.5 mg 03/09/20 18:00 Coumadin - PO DAILY@1800 [facility] Laboratory Tests 03/09/20 06:00 Carbon Dioxide 22 Magnesium 1.4 L Creatine Kinase 112 Impression 1. DONALDO 2. hyperkalemia 3. met acidosis 4. 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 epilepsy 7. dementia 8. anemia Plan - replace potassium - decrease bicarb dose - repeat labs in am - replace mag - cont to monitor renal function - cpk improved - donaldo likely in part pre-renal
[2020-03-09] MEDS ORDERED: POTASSIUM CHLORIDE ORAL LIQUID 20 MEQ/15 ML PO ONE (17:12)
[2020-03-09] MEDS: WARFARIN NA 7.5 MG TABLET (FP) PO SCH (17:12)
[2020-03-09] MEDS: AMINO ACIDS/PROTEIN HYDROLYS 30 ML LIQUID.PKT PO SCH (17:13)
[2020-03-09] MEDS: SODIUM CHLORIDE 0.45% 1,000 ML IV SCH (17:13)
[2020-03-09] MEDS: SENNOSIDES 8.8 MG/5 ML BULK BOTTLE PO SCH (21:31)
[2020-03-10] MEDS: HEPARIN INFUSION - 25,000 UNITS/500 ML INFUS.BAG IVPB SCH ×2 (05:26→23:07)
[2020-03-10 05:52] LABS: HEMATOCRIT 23.2 % (35.4-49); HEMOGLOBIN 8.1 GM/dL (11.7-16.9); MCH 32.5 pg (25.7-33.7); MCHC 34.8 g/dl (32.0-35.9); MEAN CELL VOLUME 93.3 fl (80-96); MEAN PLT VOLUME 8.3 fl (7.5-11.1); PLATELET COUNT 142 K/MM3 (134-434); RBC 2.48 M/mm3 (4.00-5.60); RDW 14.2 % (11.9-15.9); WHITE BLOOD COUNT 3.8 K/mm3 (4.0-10.0)
[2020-03-10 06:19] LABS: INR 1.36 (0.83-1.09); PROTHROMBIN TIME (PATIENT) 16.1 SEC (9.7-13.0)
[2020-03-10 06:21] LABS: ACTIVATED PTT 69.1 SECONDS (25.2-36.5)
[2020-03-10 06:53] LABS: ALBUMIN 2.2 g/dl (3.4-5.0); BILIRUBIN,TOTAL 0.4 mg/dL (0.2-1); BLOOD UREA NITROGEN 18.9 mg/dL (7-18); CREATININE 1.7 mg/dL (0.55-1.3); MAGNESIUM 1.8 mg/dL (1.8-2.4); POTASSIUM 3.7 mmol/L (3.5-5.1); TOT PROT 6.3 g/dl (6.4-8.2)
[2020-03-10] MEDS: AMINO ACIDS/PROTEIN HYDROLYS 30 ML LIQUID.PKT PO SCH ×2 (09:53→18:03)
[2020-03-10] MEDS: DRONABINOL 2.5 MG CAPSULE PO SCH (09:54)
[2020-03-10] MEDS: TAMSULOSIN HCL 0.4 MG CAP PO SCH (09:54)
[2020-03-10] MEDS: PHENobarbital 30 MG TABLET PO SCH ×2 (09:54→23:00)
[2020-03-10] MEDS: LATANOPROST 0.005% OPHTH SOLN 2.5ML BOTTLE OD SCH (09:54)
[2020-03-10] MEDS ORDERED: SODIUM BICARBONATE 650 MG TABLET PO SCH (10:00)
--- NOTE | 2020-03-10 10:47 | PN ---
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 Suggest- contact family for hearing aid batteries trial chopped reg diet and use dentures mealtime Magic cup Appetite Stimulant? RD f/u- provide hot cereal a couple of times daily, other preferences
--- NOTE | 2020-03-10 11:59 | PN ---
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 (short form) - Note 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: Pt examined events noted eating less awake , confused eating 25% breakfast today Vital Signs - 24 hr 03/09/20 03/09/20 03/09/20 14:26 17:59 21:00 Temperature 98.6 F 99.5 F Pulse Rate 59 L 56 L Respiratory 18 18 16 Rate Blood Pressure 134/64 144/66 O2 Sat by Pulse 97 100 100 Oximetry (%) 03/09/20 03/10/20 21:37 06:00 Temperature 98.2 F 97.9 F Pulse Rate 56 L 56 L Respiratory 16 18 Rate Blood Pressure 145/66 139/65 O2 Sat by Pulse 100 Oximetry (%) Laboratory Results - last 24 hr 03/06/20 03/09/20 03/10/20 10:50 20:45 05:15 WBC 3.8 L RBC 2.48 L Hgb 8.1 L Hct 23.2 L MCV 93.3 MCH 32.5 MCHC 34.8 RDW 14.2 Plt Count 142 MPV 8.3 PT with INR INR PTT (Actin FS) Sodium Potassium Chloride Carbon Dioxide Anion Gap BUN Creatinine Est GFR (CKD-EPI)AfAm Est GFR (CKD-EPI)NonAf Random Glucose Calcium Magnesium Total Bilirubin AST ALT Alkaline Phosphatase Total Protein Albumin Stool Occult Blood Negative Blood Type O POSITIVE Antibody Screen Negative Crossmatch See Detail 03/10/20 03/10/20 03/10/20 05:15 05:15 05:15 WBC RBC Hgb Hct MCV MCH MCHC RDW Plt Count MPV PT with INR 16.10 H INR 1.36 H PTT (Actin FS) 69.1 H Sodium 140 Potassium 3.7 Chloride 111 H Carbon Dioxide 23 Anion Gap 6 L BUN 18.9 H Creatinine 1.7 H Est GFR (CKD-EPI)AfAm 46.98 Est GFR (CKD-EPI)NonAf 40.54 Random Glucose 96 Calcium 8.0 L Magnesium 1.8 Total Bilirubin 0.4 AST 125 H ALT 117 H Alkaline Phosphatase 40 L Total Protein 6.3 L Albumin 2.2 L Stool Occult Blood Negative Blood Type Antibody Screen Crossmatch S1 S2 RRR cachetic Lungs decreased Abd- soft, NT B/L upper arm edema no leg edema A/P lung CA right renal cell CA acute kidney injury right brachial DVT failure to thrive anemia SZD -- iv fluids -- oncology eval noted -- cultures all negative -- last chemo per [facility] -- 02/11/20 --- appreciate palliative care eval-- family meeting to take place today -- renal function about the same -- voiding trial today -- increase coumadin -- check INR
--- NOTE | 2020-03-10 13:15 | PN ---
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, Physician History of Present Illness: Pt seen and examined at bedside. He is awake and appears comfortable. - Current Medication List Current Medications: Active Medications Amino Acids (Prosource No Carb Liquid Pkt) 30 ml PO BID@0800,1730 [facility] Last Admin: 03/10/20 09:53 Dose: 30 ml Documented by: Dronabinol (Marinol -) 5 mg PO DAILY [facility] Last Admin: 03/10/20 09:54 Dose: 5 mg Documented by: Heparin Sodium (Porcine) (Heparin -) 5,000 unit IVPUSH PRN PRN PRN Reason: APTT (SECONDS) <40 Last Admin: 03/06/20 22:48 Dose: 5,000 unit Documented by: Heparin Sodium (Porcine) (Heparin -) 1,000 unit IVPUSH PRN PRN PRN Reason: APTT (SECONDS) 40-49 Last Admin: 03/06/20 22:49 Dose: 1,000 unit Documented by: Heparin Sodium/Dextrose (Heparin Infusion -) 25,000 units in 500 mls @ 20 mls/hr IVPB TITR [facility]; Protocol Last Admin: 03/10/20 05:26 Dose: 1,250 units/hr, 25 mls/hr Documented by: Sodium Chloride (1/2 Normal Saline) 1,000 mls @ 40 mls/hr IV ASDIR [facility] Last Admin: 03/09/20 17:13 Dose: 40 mls/hr Documented by: Latanoprost (Xalatan 0.005% Eye Drops -) 1 drop OD DAILY [facility] Last Admin: 03/10/20 09:54 Dose: 1 drop Documented by: Phenobarbital (Phenobarbital -) 30 mg PO BID [facility] Last Admin: 03/10/20 09:54 Dose: 30 mg Documented by: Senna (Senna Oral Solution -) 8.8 mg PO HS [facility] Last Admin: 03/09/20 21:31 Dose: 8.8 mg Documented by: Sodium Bicarbonate (Sodium Bicarbonate -) 650 mg PO BID [facility] Last Admin: 03/10/20 09:54 Dose: 650 mg Documented by: Tamsulosin HCl (Flomax -) 0.4 mg PO DAILY [facility] Last Admin: 03/10/20 09:54 Dose: 0.4 mg Documented by: Warfarin Sodium (Coumadin -) 7.5 mg PO DAILY@1800 [facility] Last Admin: 03/09/20 17:12 Dose: 7.5 mg Documented by: - Objective Vital Signs: Vital Signs Temperature 98.4 F 03/10/20 10:00 Pulse Rate 74 03/10/20 10:00 Respiratory Rate 20 03/10/20 10:00 Blood Pressure 124/63 03/10/20 10:00 O2 Sat by Pulse Oximetry (%) 100 03/10/20 09:00 Constitutional: Yes: Calm Eyes: Yes: Conjunctiva Clear HENT: Yes: Atraumatic Cardiovascular: Yes: S1, S2 Respiratory: Yes: CTA Bilaterally Gastrointestinal: Yes: Normal Bowel Sounds, Soft Genitourinary: Yes: Marie Present Musculoskeletal: Yes: Muscle Weakness Edema: No Neurological: Yes: Oriented Labs: CBC, BMP 03/10/20 05:15 03/10/20 05:15 INR, PTT INR 1.36 (0.83-1.09) H 03/10/20 05:15 Problem List - Problems (1) DONALDO (acute kidney injury) Code(s): N17.9 - ACUTE KIDNEY FAILURE, UNSPECIFIED (2) Hyperkalemia Code(s): E87.5 - HYPERKALEMIA Assessment/Plan Current Medications Generic Name Dose Route Start Last Admin Trade Name Freq PRN Reason Stop Dose Admin Amino Acids 30 ml 03/09/20 17:30 03/10/20 09:53 Prosource No Carb Liquid Pkt PO 30 ml BID@0800,1730 [facility] Administration Dronabinol 5 mg 03/09/20 11:30 03/10/20 09:54 Marinol - PO 5 mg DAILY [facility] Administration Heparin Sodium (Porcine) 5,000 unit 03/04/20 22:30 03/06/20 22:48 Heparin - IVPUSH 5,000 unit PRN PRN Administration APTT (SECONDS) <40 Heparin Sodium (Porcine) 1,000 unit 03/04/20 22:30 03/06/20 22:49 Heparin - IVPUSH 1,000 unit PRN PRN Administration APTT (SECONDS) 40-49 Heparin Sodium/Dextrose 25,000 units in 500 mls @ 20 mls/hr 03/04/20 22:15 03/10/20 05:26 Heparin Infusion - IVPB 1,250 units/hr TITR [facility] 25 mls/hr Administration Protocol 1,000 UNITS/HR Sodium Chloride 1,000 mls @ 40 mls/hr 03/08/20 13:44 03/09/20 17:13 1/2 Normal Saline IV 40 mls/hr [facility] Administration Latanoprost 1 drop 03/03/20 10:00 03/10/20 09:54 Xalatan 0.005% Eye Drops - OD 1 drop DAILY [facility] Administration Phenobarbital 30 mg 03/04/20 23:00 03/10/20 09:54 Phenobarbital - PO 30 mg BID [facility] Administration Senna 8.8 mg 03/07/20 22:00 03/09/20 21:31 Senna Oral Solution - PO 8.8 mg HS [facility] Administration Sodium Bicarbonate 650 mg 03/10/20 10:00 03/10/20 09:54 Sodium Bicarbonate - PO 650 mg BID [facility] Administration Tamsulosin HCl 0.4 mg 03/03/20 10:00 03/10/20 09:54 Flomax - PO 0.4 mg DAILY [facility] Administration Warfarin Sodium 7.5 mg 03/09/20 18:00 03/09/20 17:12 Coumadin - PO 7.5 mg DAILY@1800 [facility] Administration Impression 1. DONALDO 2. hyperkalemia 3. met acidosis 4. 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 epilepsy 7. dementia 8. anemia Plan - cont fluids - monitor renal function - will decrease bicarb dose further - mag improved - cont to monitor renal function - cpk improved - donaldo likely in part pre-renal
[2020-03-10] MEDS: WARFARIN NA 7.5 MG TABLET (FP) PO SCH (18:03)
[2020-03-10] MEDS: SODIUM CHLORIDE 0.45% 1,000 ML IV SCH (18:55)
--- NOTE | 2020-03-10 20:42 | PN ---
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 (short form) - Note 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: Patient more alert. Comfortable AFVSS Cor: RSR, No murmurs, No gallops Lungs: Clear to P&A Abd: Soft, Normal bowel sounds, No organomegaly Ext:No significant edema LAbs/Meds reviewed A/P 69 y/o patient, h/o stage III lung cancer in 2017 s/p chemo/RT, recurrent lung lesion in 2019 , on carbo/alimta/pembrolizumab, last dose 02/11/20 admitted with renal failure, anemia, CT a/p -- rt. renal mass suspicious for neoplasm aswell. Stable per primary treating team COVID testing negative 1. DONALDO---improving 2. hyperkalemia 3. met acidosis 4. 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 epilepsy 7. dementia 8. anemia---- myelosuppression. chronic disease /ckd. No obvious bleeding. Jorge + but haptoglobin nl/LDH--300s.No active hemolysis Monitor aand transfuse as necessary CT c/a/p non con --rt. renal mass/ post op. 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 Treadwell Discussed with palliative care team Needs to f/u with Dr. Treadwell as outpatient
[2020-03-10] MEDS: SENNOSIDES 8.8 MG/5 ML BULK BOTTLE PO SCH (22:59)
[2020-03-11 07:48] LABS: INR 1.48 (0.83-1.09); PROTHROMBIN TIME (PATIENT) 17.5 SEC (9.7-13.0)
[2020-03-11] MEDS: PHENobarbital 30 MG TABLET PO SCH ×2 (10:00→21:15)
[2020-03-11] MEDS: AMINO ACIDS/PROTEIN HYDROLYS 30 ML LIQUID.PKT PO SCH ×2 (10:00→17:13)
[2020-03-11] MEDS: TAMSULOSIN HCL 0.4 MG CAP PO SCH (10:00)
[2020-03-11] MEDS: SODIUM BICARBONATE 650 MG TABLET PO SCH (10:00)
[2020-03-11] MEDS: DRONABINOL 2.5 MG CAPSULE PO SCH (10:00)
[2020-03-11] MEDS: LATANOPROST 0.005% OPHTH SOLN 2.5ML BOTTLE OD SCH (10:01)
--- NOTE | 2020-03-11 11:06 | PN ---
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 Provide hot cereal a couple of times daily, other preferences Encourage use of dentures mealtime Magic cup Appetite Stimulant- Remeron ordered
--- NOTE | 2020-03-11 11:43 | PN ---
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 (short form) - Note 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: Pt examined events noted eating less awake , confused drinks ensure only Vital Signs - 24 hr 03/10/20 03/10/20 03/10/20 14:00 18:00 21:00 Temperature 98.6 F 98.7 F Pulse Rate 63 67 Respiratory 18 18 18 Rate Blood Pressure 125/57 L 128/65 O2 Sat by Pulse 100 97 98 Oximetry (%) 03/10/20 03/11/20 03/11/20 22:00 06:00 08:40 Temperature 98.3 F 98.2 F 98.3 F Pulse Rate 66 68 68 Respiratory 18 18 20 Rate Blood Pressure 145/68 133/66 151/77 O2 Sat by Pulse 98 100 98 Oximetry (%) 03/11/20 09:00 Temperature Pulse Rate Respiratory Rate Blood Pressure O2 Sat by Pulse 95 Oximetry (%) Current Medications Generic Name Dose Route Start Last Admin Trade Name Freq PRN Reason Stop Dose Admin Amino Acids 30 ml 03/09/20 17:30 03/11/20 10:00 Prosource No Carb Liquid Pkt PO 30 ml BID@0800,1730 [facility] Administration Heparin Sodium (Porcine) 5,000 unit 03/04/20 22:30 03/06/20 22:48 Heparin - IVPUSH 5,000 unit PRN PRN Administration APTT (SECONDS) <40 Heparin Sodium (Porcine) 1,000 unit 03/04/20 22:30 03/06/20 22:49 Heparin - IVPUSH 1,000 unit PRN PRN Administration APTT (SECONDS) 40-49 Heparin Sodium/Dextrose 25,000 units in 500 mls @ 20 mls/hr 03/04/20 22:15 03/10/20 23:07 Heparin Infusion - IVPB 1,250 units/hr TITR [facility] 25 mls/hr Administration Protocol 1,000 UNITS/HR Sodium Chloride 1,000 mls @ 40 mls/hr 03/08/20 13:44 03/10/20 18:55 1/2 Normal Saline IV 40 mls/hr ASDIR [facility] Administration Latanoprost 1 drop 03/03/20 10:00 03/11/20 10:01 Xalatan 0.005% Eye Drops - OD 1 drop DAILY [facility] Administration Megestrol Acetate 400 mg 03/11/20 11:45 Megace Oral Suspension - PO DAILY [facility] Phenobarbital 30 mg 03/04/20 23:00 03/11/20 10:00 Phenobarbital - PO 30 mg BID [facility] Administration Sodium Bicarbonate 650 mg 03/11/20 10:00 03/11/20 10:00 Sodium Bicarbonate - PO 650 mg DAILY [facility] Administration Warfarin Sodium 7.5 mg 03/09/20 18:00 03/10/20 18:03 Coumadin - PO 7.5 mg DAILY@1800 [facility] Administration Laboratory Results - last 24 hr 03/11/20 03/11/20 00:00 Unknown PT with INR 17.50 H INR 1.48 H PTT (Actin FS) 80.0 H Stool Occult Blood Negative S1 S2 RRR cachetic Lungs decreased Abd- soft, NT B/L upper arm edema no leg edema A/P lung CA right renal cell CA acute kidney injury right brachial DVT failure to thrive anemia SZD -- iv fluids -- oncology eval noted -- cultures all negative -- last chemo per [place] -- 02/11/20 -- renal function about the same -- off reyes -- increased coumadin -- check INR -- continue heparin drip -- barium swallow study -- apparently pt wants to resume chemo -- per palliative notes -- plan -->INR to be therapeutic, do barium study today - possible dc to [facility] soon with follow up appt with DR Treadwell as outpatient
[2020-03-11] MEDS: MEGESTROL ACETATE 400 MG/10 ML UNIT DOSE CUP PO SCH (12:01)
--- NOTE | 2020-03-11 13:04 | PN ---
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 Did not east cereal, and nursing reports di fficulty with puree, but enjoys Ensure liquids. MBS ordered-r/o stasis, pharyngeal/esophageal dysphagia
--- NOTE | 2020-03-11 15:34 | PN ---
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, Physician History of Present Illness: Pt seen and examined at bedside. He is awake and appears comfortable. - Current Medication List Current Medications: Active Medications Amino Acids (Prosource No Carb Liquid Pkt) 30 ml PO BID@0800,1730 [facility] Last Admin: 03/11/20 10:00 Dose: 30 ml Documented by: Heparin Sodium (Porcine) (Heparin -) 5,000 unit IVPUSH PRN PRN PRN Reason: APTT (SECONDS) <40 Last Admin: 03/06/20 22:48 Dose: 5,000 unit Documented by: Heparin Sodium (Porcine) (Heparin -) 1,000 unit IVPUSH PRN PRN PRN Reason: APTT (SECONDS) 40-49 Last Admin: 03/06/20 22:49 Dose: 1,000 unit Documented by: Heparin Sodium/Dextrose (Heparin Infusion -) 25,000 units in 500 mls @ 20 mls/hr IVPB TITR [facility]; Protocol Last Titration: 03/11/20 09:00 Dose: 1,200 units/hr, 24 mls/hr Documented by: Sodium Chloride (1/2 Normal Saline) 1,000 mls @ 40 mls/hr IV ASDIR [facility] Last Admin: 03/10/20 18:55 Dose: 40 mls/hr Documented by: Latanoprost (Xalatan 0.005% Eye Drops -) 1 drop OD DAILY [facility] Last Admin: 03/11/20 10:01 Dose: 1 drop Documented by: Megestrol Acetate (Megace Oral Suspension -) 400 mg PO DAILY [facility] Last Admin: 03/11/20 12:01 Dose: 400 mg Documented by: Phenobarbital (Phenobarbital -) 30 mg PO BID [facility] Last Admin: 03/11/20 10:00 Dose: 30 mg Documented by: Sodium Bicarbonate (Sodium Bicarbonate -) 650 mg PO DAILY [facility] Last Admin: 03/11/20 10:00 Dose: 650 mg Documented by: Warfarin Sodium (Coumadin -) 7.5 mg PO DAILY@1800 [facility] Last Admin: 03/10/20 18:03 Dose: 7.5 mg Documented by: - Objective Vital Signs: Vital Signs Temperature 98.8 F 03/11/20 13:46 Pulse Rate 71 03/11/20 13:46 Respiratory Rate 20 03/11/20 13:46 Blood Pressure 123/53 L 03/11/20 13:46 O2 Sat by Pulse Oximetry (%) 98 03/11/20 13:46 Constitutional: Yes: Calm Eyes: Yes: Conjunctiva Clear HENT: Yes: Atraumatic Neck: Yes: Supple Cardiovascular: Yes: S1, S2 Respiratory: Yes: CTA Bilaterally Gastrointestinal: Yes: Soft Genitourinary: Yes: WNL Musculoskeletal: Yes: WNL Edema: No Neurological: Yes: Oriented Labs: CBC, BMP 03/10/20 05:15 03/10/20 05:15 INR, PTT INR 1.48 (0.83-1.09) H 03/11/20 Unknown Problem List - Problems (1) DONALDO (acute kidney injury) Code(s): N17.9 - ACUTE KIDNEY FAILURE, UNSPECIFIED (2) Hyperkalemia Code(s): E87.5 - HYPERKALEMIA Assessment/Plan Current Medications Generic Name Dose Route Start Last Admin Trade Name Freq PRN Reason Stop Dose Admin Amino Acids 30 ml 03/09/20 17:30 03/11/20 10:00 Prosource No Carb Liquid Pkt PO 30 ml BID@0800,1730 [facility] Administration Heparin Sodium (Porcine) 5,000 unit 03/04/20 22:30 03/06/20 22:48 Heparin - IVPUSH 5,000 unit PRN PRN Administration APTT (SECONDS) <40 Heparin Sodium (Porcine) 1,000 unit 03/04/20 22:30 03/06/20 22:49 Heparin - IVPUSH 1,000 unit PRN PRN Administration APTT (SECONDS) 40-49 Heparin Sodium/Dextrose 25,000 units in 500 mls @ 20 mls/hr 03/04/20 22:15 03/11/20 09:00 Heparin Infusion - IVPB 1,200 units/hr TITR [facility] 24 mls/hr Titration Protocol 1,000 UNITS/HR Sodium Chloride 1,000 mls @ 40 mls/hr 03/08/20 13:44 03/10/20 18:55 1/2 Normal Saline IV 40 mls/hr ASDIR [facility] Administration Latanoprost 1 drop 03/03/20 10:00 03/11/20 10:01 Xalatan 0.005% Eye Drops - OD 1 drop DAILY [facility] Administration Megestrol Acetate 400 mg 03/11/20 11:45 03/11/20 12:01 Megace Oral Suspension - PO 400 mg DAILY [facility] Administration Phenobarbital 30 mg 03/04/20 23:00 03/11/20 10:00 Phenobarbital - PO 30 mg BID [facility] Administration Sodium Bicarbonate 650 mg 03/11/20 10:00 03/11/20 10:00 Sodium Bicarbonate - PO 650 mg DAILY [facility] Administration Warfarin Sodium 7.5 mg 03/09/20 18:00 03/10/20 18:03 Coumadin - PO 7.5 mg DAILY@1800 [facility] Administration Impression 1. DONALDO 2. hyperkalemia 3. met acidosis 4. 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 epilepsy 7. dementia 8. anemia Plan - follow swallow eval - cont current fluids - monitor lytes - repeat labs in am - will order am labs - cont to monitor renal function
[2020-03-11] MEDS ORDERED: PT OWN MED DRAWER 7, Y5N ONE (16:31)
[2020-03-11] MEDS: SODIUM CHLORIDE 0.45% 1,000 ML IV SCH (17:13)
[2020-03-11] MEDS: WARFARIN NA 7.5 MG TABLET (FP) PO SCH (17:14)
[2020-03-11] MEDS ORDERED: ACETAMINOPHEN 650 MG/20.3 ML ORAL SOLUTION (CUPS) PO ONE (19:28)
[2020-03-11] MEDS: HEPARIN INFUSION - 25,000 UNITS/500 ML INFUS.BAG IVPB SCH (22:32)
[2020-03-12 08:08] LABS: INR 1.44 (0.83-1.09)
[2020-03-12 08:20] LABS: HEMATOCRIT 21.2 % (35.4-49); HEMOGLOBIN 7.2 GM/dL (11.7-16.9); MEAN CELL VOLUME 94.1 fl (80-96); MEAN PLT VOLUME 8.7 fl (7.5-11.1); PLATELET COUNT 141 K/MM3 (134-434); RBC 2.26 M/mm3 (4.00-5.60); WHITE BLOOD COUNT 3.9 K/mm3 (4.0-10.0)
[2020-03-12 09:05] LABS: ACTIVATED PTT 127.4 SECONDS (25.2-36.5)
[2020-03-12 09:48] LABS: ALBUMIN 2.1 g/dl (3.4-5.0); BILIRUBIN,TOTAL 0.2 mg/dL (0.2-1); CALCIUM 8.2 mg/dL (8.5-10.1); CREATININE 1.7 mg/dL (0.55-1.3); MAGNESIUM 1.7 mg/dL (1.8-2.4); POTASSIUM 3.8 mmol/L (3.5-5.1); TOT PROT 6.1 g/dl (6.4-8.2)
[2020-03-12] MEDS: AMINO ACIDS/PROTEIN HYDROLYS 30 ML LIQUID.PKT PO SCH ×2 (10:01→17:17)
[2020-03-12] MEDS: SODIUM BICARBONATE 650 MG TABLET PO SCH (10:01)
[2020-03-12] MEDS: LATANOPROST 0.005% OPHTH SOLN 2.5ML BOTTLE OD SCH (10:01)
[2020-03-12] MEDS: MEGESTROL ACETATE 400 MG/10 ML UNIT DOSE CUP PO SCH (10:01)
[2020-03-12] MEDS: PHENobarbital 30 MG TABLET PO SCH ×2 (10:01→21:28)
--- NOTE | 2020-03-12 11:02 | PN ---
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, BILL HIKER - Note 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: Selected Entries 03/11/20 03/11/20 03/12/20 09:17 22:00 06:12 Breakfast 0 Diet Tolerated Refused Temperature 98.7 F Blood Pressure 152/69 03/12/20 03/12/20 09:59 10:00 Breakfast 0 Diet Tolerated Refused Temperature 98.4 F Blood Pressure 120/52 L Laboratory Tests 03/12/20 06:00 WBC 3.9 L MBS completed.Swallowing is functional. Poor PO intake. Megace ordered. Encourage 3-4 Ensure daily to supplement poor po acceptance of food
--- NOTE | 2020-03-12 11:07 | PN ---
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 (short form) - Note 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: Palliative care f/up 69yo M fwith metastatic lung cancer on chemo, renal mass ? RCC, COPD, seizures on phenobarbital, dementia, anemia (last hb 6.7 on 02/26/20), neuropathy on gabapentin, admitted on 03/02 for "FTT, AMS, and abnormal labs." Per [facility] chart, patient has had a recent functional decline and has been refusing chemo. He was admitted with disorientation and confusion and at baseline as per family he is able to converse and is oriented x1-2. He was diagnosed with lung cancer 4 years ago and underwent sx , ? chemo / radiation at that time. He has been in [facility] since then. He was on chemotherapy currently and last reported treatment was on 02/11/20. He has had a functional decline, decreased appetite, not able to get out of bed, more confused. He refused his most recent chemotherapy session as per snf records. He was found to have severe anemia, pancytopenia ( not neutropenic), hypernatremia, hyperchloremia, DONALDO, acidosis, hepatitis, rhabdo and hyperkalemia. CT abdo/ pelvis- 5.7 x 4.4 cm neoplastic mass rt renal pole, dilated CBD 12 mm, pancreatic duct 4 mm- MRCP recommended. CTH mild soft tissue swelling lat/ sup margin rt orbit- ? mets. CT chest- severe COPD, no mass, no mets. He is s/p PRBC, iv hydration with improvement in renal functions and electrolyte derangements. He is tolerating pureed diet with thin liquids. He was found to have DVT rt brachial vein and is on heparin drip. His primary oncologist is Dr Treadwell. poor appetite- dysgeusia AAO x1 NAD VSS afebrile MMM chest- CTAB P/A soft no c/c/e primary lung cancer with recurrence- on chemo currently with pancytopenia, severe anemia requiring multiple transfusions- anemia: ? myelosuppression CKD- Renal mass- neoplastic dysphagia, FTT, cognitive decline, dehydration with DONALDO, rhabdo, hepatitis severe COPD Rt brachial vein DVT Mr Dupont was diagnosed with lung cancer 3 years ago and has been in [facility] the past 3 years. His last chemo was on 02/10 as per the chart and he has been declining since, bed bound, decreased appetite and cognitive decline. He has renal mass,? liver mets, ? MDS, myelosuppression vs anemia of chr disease in setting of dementia, poor appetite and FTT Overall prognosis guarded in view of possible second malignancy and overall physical and cognitive decline. Mr Dupont does not have a HCP and does not have advanced directives. He does wish to continue his treatments and will f/up with Dr Treadwell after dc. Supportive care to continue. Prognosis guarded. Megace, nutrtional supplements PT Will follow. Problem List - Problems (1) DONALDO (acute kidney injury) Code(s): N17.9 - ACUTE KIDNEY FAILURE, UNSPECIFIED (2) DVT (deep venous thrombosis) Code(s): I82.409 - ACUTE EMBOLISM AND THOMBOS UNSP DEEP VN UNSP LOWER EXTREMITY (3) Lung cancer, primary, with metastasis from lung to other site Code(s): C34.90 - MALIGNANT NEOPLASM OF UNSP PART OF UNSP BRONCHUS OR LUNG (4) Renal cancer Code(s): C64.9 - MALIGNANT NEOPLASM OF UNSP KIDNEY, EXCEPT RENAL PELVIS (5) Toxic metabolic encephalopathy Code(s): G92 - TOXIC ENCEPHALOPATHY
--- NOTE | 2020-03-12 12:49 | PN ---
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, Physician History of Present Illness: Pt seen/ examined Awake No distress sitting in chair denies pain chronic ill appearance all f/u noted On Heparin drip no obvious bleeding stool for occult -ve Hb - around 7 again will monitor and order transfusion if <7. - Current Medication List Current Medications: Active Medications Amino Acids (Prosource No Carb Liquid Pkt) 30 ml PO BID@0800,1730 [facility] Last Admin: 03/12/20 10:01 Dose: 30 ml Documented by: Heparin Sodium (Porcine) (Heparin -) 5,000 unit IVPUSH PRN PRN PRN Reason: APTT (SECONDS) <40 Last Admin: 03/06/20 22:48 Dose: 5,000 unit Documented by: Heparin Sodium (Porcine) (Heparin -) 1,000 unit IVPUSH PRN PRN PRN Reason: APTT (SECONDS) 40-49 Last Admin: 03/06/20 22:49 Dose: 1,000 unit Documented by: Heparin Sodium/Dextrose (Heparin Infusion -) 25,000 units in 500 mls @ 20 mls/hr IVPB TITR [facility]; Protocol Last Titration: 03/12/20 12:19 Dose: 1,050 units/hr, 21 mls/hr Documented by: Sodium Chloride (1/2 Normal Saline) 1,000 mls @ 40 mls/hr IV ASDIR [facility] Last Admin: 03/11/20 17:13 Dose: 40 mls/hr Documented by: Latanoprost (Xalatan 0.005% Eye Drops -) 1 drop OD DAILY [facility] Last Admin: 03/12/20 10:01 Dose: 1 drop Documented by: Mirtazapine (Remeron -) 7.5 mg PO [facility] Phenobarbital (Phenobarbital -) 30 mg PO BID [facility] Last Admin: 03/12/20 10:01 Dose: 30 mg Documented by: Sodium Bicarbonate (Sodium Bicarbonate -) 650 mg PO DAILY [facility] Last Admin: 03/12/20 10:01 Dose: 650 mg Documented by: Warfarin Sodium (Coumadin -) 7.5 mg PO DAILY@1800 [facility] Last Admin: 03/11/20 17:14 Dose: 7.5 mg Documented by: Warfarin Sodium (Coumadin -) 2.5 mg PO ONCE@1800 ONE Stop: 03/12/20 18:01 - Objective Vital Signs: Vital Signs Temperature 98.4 F 03/12/20 10:00 Pulse Rate 66 03/12/20 10:00 Respiratory Rate 18 03/12/20 10:00 Blood Pressure 120/52 L 03/12/20 10:00 O2 Sat by Pulse Oximetry (%) 97 03/12/20 10:00 Constitutional: Yes: No Distress, Other (weak) Eyes: Yes: Other (pale) Neck: Yes: Supple Cardiovascular: Yes: Regular Rate and Rhythm Respiratory: Yes: Diminished Gastrointestinal: Yes: Soft Edema: LUE: Trace, RUE: Trace Neurological: Yes: Alert Labs: CBC, BMP 03/12/20 06:00 03/12/20 06:00 INR, PTT INR 1.44 (0.83-1.09) H 03/12/20 06:00 Problem List - Problems (1) Lung cancer, primary, with metastasis from lung to other site Code(s): C34.90 - MALIGNANT NEOPLASM OF UNSP PART OF UNSP BRONCHUS OR LUNG (2) DVT (deep venous thrombosis) Code(s): I82.409 - ACUTE EMBOLISM AND THOMBOS UNSP DEEP VN UNSP LOWER EXTREMITY (3) DONALDO (acute kidney injury) Code(s): N17.9 - ACUTE KIDNEY FAILURE, UNSPECIFIED (4) Toxic metabolic encephalopathy Code(s): G92 - TOXIC ENCEPHALOPATHY Assessment/Plan Multiple issues as Listed 1. Acute Renal failure-- getting better 2. 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 Anemia 6. Elevated liver enzymes stool for occult blood -ve Continue present care started on coumadin with caution maintain reyes-- consider d/c in am if renal ok with it stool softners transfuse prn will follow will give extra dose of coumadin today d/w Rn also will follow
--- NOTE | 2020-03-12 14:38 | PN ---
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, Physician History of Present Illness: Pt seen and examined at bedside. He is out of bed to chair. - Current Medication List Current Medications: Active Medications Amino Acids (Prosource No Carb Liquid Pkt) 30 ml PO BID@0800,1730 [facility] Last Admin: 03/12/20 10:01 Dose: 30 ml Documented by: Heparin Sodium (Porcine) (Heparin -) 5,000 unit IVPUSH PRN PRN PRN Reason: APTT (SECONDS) <40 Last Admin: 03/06/20 22:48 Dose: 5,000 unit Documented by: Heparin Sodium (Porcine) (Heparin -) 1,000 unit IVPUSH PRN PRN PRN Reason: APTT (SECONDS) 40-49 Last Admin: 03/06/20 22:49 Dose: 1,000 unit Documented by: Heparin Sodium/Dextrose (Heparin Infusion -) 25,000 units in 500 mls @ 20 mls/hr IVPB TITR [facility]; Protocol Last Titration: 03/12/20 12:19 Dose: 1,050 units/hr, 21 mls/hr Documented by: Sodium Chloride (1/2 Normal Saline) 1,000 mls @ 40 mls/hr IV ASDIR [facility] Last Admin: 03/11/20 17:13 Dose: 40 mls/hr Documented by: Latanoprost (Xalatan 0.005% Eye Drops -) 1 drop OD DAILY [facility] Last Admin: 03/12/20 10:01 Dose: 1 drop Documented by: Magnesium Sulfate (Magnesium Sulfate) 2 gm IVPB ONCE ONE Stop: 03/12/20 14:38 Mirtazapine (Remeron -) 7.5 mg PO [facility] Phenobarbital (Phenobarbital -) 30 mg PO BID [facility] Last Admin: 03/12/20 10:01 Dose: 30 mg Documented by: Sodium Bicarbonate (Sodium Bicarbonate -) 650 mg PO DAILY [facility] Last Admin: 03/12/20 10:01 Dose: 650 mg Documented by: Warfarin Sodium (Coumadin -) 7.5 mg PO DAILY@1800 [facility] Last Admin: 03/11/20 17:14 Dose: 7.5 mg Documented by: Warfarin Sodium (Coumadin -) 2.5 mg PO ONCE@1800 ONE Stop: 03/12/20 18:01 - Objective Vital Signs: Vital Signs Temperature 98.4 F 03/12/20 10:00 Pulse Rate 66 03/12/20 10:00 Respiratory Rate 18 03/12/20 10:00 Blood Pressure 120/52 L 03/12/20 10:00 O2 Sat by Pulse Oximetry (%) 97 03/12/20 10:00 Constitutional: Yes: Calm Eyes: Yes: Conjunctiva Clear HENT: Yes: Atraumatic Neck: Yes: Supple Cardiovascular: Yes: S1, S2 Respiratory: Yes: CTA Bilaterally Gastrointestinal: Yes: Soft Genitourinary: Yes: WNL Musculoskeletal: Yes: WNL Edema: No Neurological: Yes: Confusion Labs: CBC, BMP 03/12/20 06:00 03/12/20 06:00 INR, PTT INR 1.44 (0.83-1.09) H 03/12/20 06:00 Problem List - Problems (1) DONALDO (acute kidney injury) Code(s): N17.9 - ACUTE KIDNEY FAILURE, UNSPECIFIED (2) Hyperkalemia Code(s): E87.5 - HYPERKALEMIA Assessment/Plan Current Medications Generic Name Dose Route Start Last Admin Trade Name Freq PRN Reason Stop Dose Admin Amino Acids 30 ml 03/09/20 17:30 03/12/20 10:01 Prosource No Carb Liquid Pkt PO 30 ml BID@0800,1730 [facility] Administration Heparin Sodium (Porcine) 5,000 unit 03/04/20 22:30 03/06/20 22:48 Heparin - IVPUSH 5,000 unit PRN PRN Administration APTT (SECONDS) <40 Heparin Sodium (Porcine) 1,000 unit 03/04/20 22:30 03/06/20 22:49 Heparin - IVPUSH 1,000 unit PRN PRN Administration APTT (SECONDS) 40-49 Heparin Sodium/Dextrose 25,000 units in 500 mls @ 20 mls/hr 03/04/20 22:15 03/12/20 12:19 Heparin Infusion - IVPB 1,050 units/hr TITR [facility] 21 mls/hr Titration Protocol 1,000 UNITS/HR Sodium Chloride 1,000 mls @ 40 mls/hr 03/08/20 13:44 03/11/20 17:13 1/2 Normal Saline IV 40 mls/hr ASDIR [facility] Administration Latanoprost 1 drop 03/03/20 10:00 03/12/20 10:01 Xalatan 0.005% Eye Drops - OD 1 drop DAILY [facility] Administration Magnesium Sulfate 2 gm 03/12/20 14:37 Magnesium Sulfate IVPB 03/12/20 14:38 ONCE ONE Mirtazapine 7.5 mg 03/12/20 22:00 Remeron - PO HS [facility] Phenobarbital 30 mg 03/04/20 23:00 03/12/20 10:01 Phenobarbital - PO 30 mg BID [facility] Administration Sodium Bicarbonate 650 mg 03/11/20 10:00 03/12/20 10:01 Sodium Bicarbonate - PO 650 mg DAILY [facility] Administration Warfarin Sodium 7.5 mg 03/09/20 18:00 03/11/20 17:14 Coumadin - PO 7.5 mg DAILY@1800 [facility] Administration Warfarin Sodium 2.5 mg 03/12/20 18:00 Coumadin - PO 03/12/20 18:01 ONCE@1800 ONE Impression 1. DONALDO 2. hyperkalemia 3. met acidosis 4. 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 epilepsy 7. dementia 8. 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
[2020-03-12] MEDS ORDERED: MAGNESIUM 2GM/50ML STERILE WATER IVPB IVPB ONE (14:45)
[2020-03-12] MEDS: SODIUM CHLORIDE 0.45% 1,000 ML IV SCH (15:26)
[2020-03-12] MEDS ORDERED: PT OWN MED DRAWER 7, Y5N ONE (17:14)
[2020-03-12] MEDS: WARFARIN NA 7.5 MG TABLET (FP) PO SCH (17:17)
[2020-03-12] MEDS ORDERED: WARFARIN NA 2.5 MG TABLET PO ONE (18:00)
[2020-03-12] MEDS: MIRTAZAPINE 15 MG TABLET (FP) PO SCH (21:28)
[2020-03-12] MEDS: HEPARIN INFUSION - 25,000 UNITS/500 ML INFUS.BAG IVPB SCH (22:29)
--- NOTE | 2020-03-13 08:32 | PN.HO ---
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 (short form) - Note 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: Patient more alert. Comfortable AFVSS Cor: RSR, No murmurs, No gallops Lungs: Clear to P&A Abd: Soft, Normal bowel sounds, No organomegaly Ext:No significant edema LAbs/Meds reviewed A/P 69 y/o patient, h/o stage III lung cancer in 2018 s/p chemo/RT, recurrent lung lesion in 2019 , on carbo/alimta/pembrolizumab, last dose 02/11/20 admitted with renal failure, anemia, CT a/p -- rt. renal mass suspicious for neoplasm aswell. Stable per primary treating team COVID testing negative 1. DONALDO---improving 2. hyperkalemia 3. met acidosis 4. 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 epilepsy 7. dementia 8. anemia---- myelosuppression. chronic disease /ckd. No obvious bleeding. Gama + but haptoglobin nl/LDH--300s.No active hemolysis Monitor aand transfuse as necessary CT c/a/p non con --rt. 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 Treadwell Discussed with palliative care team Needs to f/u with Dr. Treadwell as outpatient anemia --? gi bleeding transfuse PRBCs GI consult gama +. LDH 300s. HAptoglobin normal
[2020-03-13] MEDS: AMINO ACIDS/PROTEIN HYDROLYS 30 ML LIQUID.PKT PO SCH ×2 (08:57→16:39)
[2020-03-13] MEDS: PHENobarbital 30 MG TABLET PO SCH ×2 (08:59→21:19)
[2020-03-13] MEDS: LATANOPROST 0.005% OPHTH SOLN 2.5ML BOTTLE OD SCH (09:00)
[2020-03-13 09:17] LABS: BASO % 0.2 % (0-2.0); HEMOGLOBIN 7.8 GM/dL (11.7-16.9); LYMPH % 32.4 % (8-40); MCH 32.1 pg (25.7-33.7); MEAN CELL VOLUME 94.4 fl (80-96); MEAN PLT VOLUME 8.4 fl (7.5-11.1); MONO % 26.6 % (3.8-10.2); NEUT % 40.8 % (42.8-82.8); PLATELET COUNT 158 K/MM3 (134-434); RBC 2.44 M/mm3 (4.00-5.60); RDW 14.2 % (11.9-15.9); WHITE BLOOD COUNT 3.7 K/mm3 (4.0-10.0)
[2020-03-13 09:25] LABS: INR 1.33 (0.83-1.09); PROTHROMBIN TIME (PATIENT) 15.7 SEC (9.7-13.0)
[2020-03-13 09:28] LABS: ACTIVATED PTT 90.4 SECONDS (25.2-36.5)
[2020-03-13 11:12] LABS: ALBUMIN 2.3 g/dl (3.4-5.0); BILIRUBIN,TOTAL 0.2 mg/dL (0.2-1); BLOOD UREA NITROGEN 25.4 mg/dL (7-18); CALCIUM 9.2 mg/dL (8.5-10.1); CREATININE 1.8 mg/dL (0.55-1.3); TOT PROT 6.8 g/dl (6.4-8.2)
[2020-03-13 11:22] LABS: ANISOCYTOSIS 0; MACROCYTOSIS 0; PLATELET ESTIMATE DECREASED
--- NOTE | 2020-03-13 11:41 | PN ---
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 (short form) - Note 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: Pt examined events noted eating slightly better today received 1 unit PRBC yesterday awake , no complaints Vital Signs - 24 hr 03/12/20 03/12/20 03/12/20 15:43 18:00 21:00 Temperature 99 F 98.7 F Pulse Rate 68 62 Respiratory 18 18 18 Rate Blood Pressure 142/71 142/68 O2 Sat by Pulse 98 100 Oximetry (%) 03/12/20 03/13/20 03/13/20 22:00 06:03 08:34 Temperature 98.8 F 98.5 F 98.9 F Pulse Rate 68 61 63 Respiratory 17 18 18 Rate Blood Pressure 131/61 144/65 152/68 O2 Sat by Pulse 99 99 94 L Oximetry (%) 03/13/20 09:00 Temperature Pulse Rate Respiratory 18 Rate Blood Pressure O2 Sat by Pulse 94 L Oximetry (%) Current Medications Generic Name Dose Route Start Last Admin Trade Name Freq PRN Reason Stop Dose Admin Amino Acids 30 ml 03/09/20 17:30 03/13/20 08:57 Prosource No Carb Liquid Pkt PO 30 ml BID@0800,1730 [facility] Administration Heparin Sodium (Porcine) 5,000 unit 03/04/20 22:30 03/06/20 22:48 Heparin - IVPUSH 5,000 unit PRN PRN Administration APTT (SECONDS) <40 Heparin Sodium (Porcine) 1,000 unit 03/04/20 22:30 03/06/20 22:49 Heparin - IVPUSH 1,000 unit PRN PRN Administration APTT (SECONDS) 40-49 Heparin Sodium/Dextrose 25,000 units in 500 mls @ 20 mls/hr 03/04/20 22:15 03/13/20 10:36 Heparin Infusion - IVPB 950 units/hr TITR [facility] 19 mls/hr Titration Protocol 1,000 UNITS/HR Latanoprost 1 drop 03/03/20 10:00 03/13/20 09:00 Xalatan 0.005% Eye Drops - OD 1 drop DAILY [facility] Administration Mirtazapine 7.5 mg 03/12/20 22:00 03/12/20 21:28 Remeron - PO 7.5 mg HS [facility] Administration Phenobarbital 30 mg 03/04/20 23:00 03/13/20 08:59 Phenobarbital - PO 30 mg BID [facility] Administration Warfarin Sodium 7.5 mg 03/09/20 18:00 03/12/20 17:17 Coumadin - PO 7.5 mg DAILY@1800 [facility] Administration Laboratory Results - last 24 hr 03/12/20 03/12/20 03/13/20 10:40 18:25 08:50 WBC 3.7 L RBC 2.44 L Hgb 7.8 L Hct 23.0 L MCV 94.4 MCH 32.1 MCHC 34.0 RDW 14.2 Plt Count 158 MPV 8.4 Absolute Neuts (auto) 1.5 Neutrophils % 40.8 L Neutrophils % (Manual) 48.0 Band Neutrophils % 0.0 Lymphocytes % 32.4 D Lymphocytes % (Manual) 40.0 D Monocytes % 26.6 H Monocytes % (Manual) 9 Eosinophils % 0.0 Eosinophils % (Manual) 0.0 Basophils % 0.2 Basophils % (Manual) 0.0 Myelocytes % (Man) 1 D Promyelocytes % (Man) 0 Blast Cells % (Manual) 0 Nucleated RBC % 0 Metamyelocytes 1 Hypochromia 0 Platelet Estimate Decreased Polychromasia 0 Poikilocytosis 0 Anisocytosis 0 Microcytosis 0 Macrocytosis 0 PT with INR INR PTT (Actin FS) 93.5 H 66.9 H Sodium Potassium Chloride Carbon Dioxide Anion Gap BUN Creatinine Est GFR (CKD-EPI)AfAm Est GFR (CKD-EPI)NonAf Random Glucose Calcium Total Bilirubin AST ALT Alkaline Phosphatase Total Protein Albumin Blood Type Antibody Screen Crossmatch 03/13/20 03/13/20 03/13/20 08:50 08:50 08:50 WBC RBC Hgb Hct MCV MCH MCHC RDW Plt Count MPV Absolute Neuts (auto) Neutrophils % Neutrophils % (Manual) Band Neutrophils % Lymphocytes % Lymphocytes % (Manual) Monocytes % Monocytes % (Manual) Eosinophils % Eosinophils % (Manual) Basophils % Basophils % (Manual) Myelocytes % (Man) Promyelocytes % (Man) Blast Cells % (Manual) Nucleated RBC % Metamyelocytes Hypochromia Platelet Estimate Polychromasia Poikilocytosis Anisocytosis Microcytosis Macrocytosis PT with INR 15.70 H INR 1.33 H PTT (Actin FS) 90.4 H Sodium 143 Potassium 4.0 Chloride 109 H Carbon Dioxide 23 Anion Gap 11 BUN 25.4 H Creatinine 1.8 H Est GFR (CKD-EPI)AfAm 43.84 Est GFR (CKD-EPI)NonAf 37.83 Random Glucose 95 Calcium 9.2 Total Bilirubin 0.2 AST 84 H ALT 97 H Alkaline Phosphatase 45 Total Protein 6.8 Albumin 2.3 L Blood Type O POSITIVE Antibody Screen Negative Crossmatch See Detail S1 S2 RRR cachetic Lungs decreased Abd- soft, NT B/L upper arm edema no leg edema A/P lung CA right renal cell CA acute kidney injury right brachial DVT failure to thrive anemia SZD -- iv fluids dc -- oncology eval noted -- cultures all negative -- last chemo per [place] -- 02/11/20 -- renal function slight worsen -- off reyes -- increased coumadin today-- 8 mg -- check INR -- continue heparin drip -- barium swallow study results noted -- apparently pt wants to resume chemo -- per palliative notes -- plan -->INR to be therapeutic, - possible dc to [place] soon with follow up appt with DR Treadwell as outpatient
[2020-03-13] MEDS: WARFARIN NA 5 MG TABLET PO SCH (17:18)
[2020-03-13] MEDS: MIRTAZAPINE 15 MG TABLET (FP) PO SCH (21:19)
[2020-03-14] MEDS: HEPARIN INFUSION - 25,000 UNITS/500 ML INFUS.BAG IVPB SCH (03:45)
[2020-03-14] MEDS: AMINO ACIDS/PROTEIN HYDROLYS 30 ML LIQUID.PKT PO SCH ×2 (08:43→17:12)
[2020-03-14 09:06] LABS: HEMATOCRIT 20.9 % (35.4-49); HEMOGLOBIN 7.1 GM/dL (11.7-16.9); MCH 32.3 pg (25.7-33.7); MCHC 33.8 g/dl (32.0-35.9); MEAN CELL VOLUME 95.6 fl (80-96); MEAN PLT VOLUME 8.5 fl (7.5-11.1); PLATELET COUNT 146 K/MM3 (134-434); RBC 2.18 M/mm3 (4.00-5.60); RDW 13.9 % (11.9-15.9); WHITE BLOOD COUNT 3.8 K/mm3 (4.0-10.0)
[2020-03-14] MEDS: LATANOPROST 0.005% OPHTH SOLN 2.5ML BOTTLE OD SCH (09:14)
[2020-03-14] MEDS: PHENobarbital 30 MG TABLET PO SCH ×2 (09:14→21:48)
[2020-03-14 09:15] LABS: INR 1.28 (0.83-1.09); PROTHROMBIN TIME (PATIENT) 15.2 SEC (9.7-13.0)
[2020-03-14 09:18] LABS: ACTIVATED PTT 50.2 SECONDS (25.2-36.5)
[2020-03-14 09:37] LABS: ALBUMIN 2.2 g/dl (3.4-5.0); BILIRUBIN,TOTAL 0.3 mg/dL (0.2-1); BLOOD UREA NITROGEN 32.8 mg/dL (7-18); CALCIUM 8.5 mg/dL (8.5-10.1); CREATININE 1.9 mg/dL (0.55-1.3); POTASSIUM 4.1 mmol/L (3.5-5.1); TOT PROT 6.1 g/dl (6.4-8.2)
--- NOTE | 2020-03-14 13:00 | PN ---
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 (short form) - Note 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: Pt examined events noted eating slightly better today he is taking coumadin Vital Signs - 24 hr 03/13/20 03/13/20 03/13/20 15:46 21:00 22:00 Temperature 99.2 F 100 F H Pulse Rate 64 75 Respiratory 18 22 H Rate Blood Pressure 127/59 L 127/60 O2 Sat by Pulse 96 97 Oximetry (%) 03/14/20 03/14/20 03/14/20 06:00 07:40 09:00 Temperature 99.1 F 98.3 F Pulse Rate 72 68 Respiratory 20 20 20 Rate Blood Pressure 129/67 135/67 O2 Sat by Pulse 95 95 Oximetry (%) Current Medications Generic Name Dose Route Start Last Admin Trade Name Freq PRN Reason Stop Dose Admin Amino Acids 30 ml 03/09/20 17:30 03/14/20 08:43 Prosource No Carb Liquid Pkt PO 30 ml BID@0800,1730 [facility] Administration Heparin Sodium (Porcine) 5,000 unit 03/04/20 22:30 03/06/20 22:48 Heparin - IVPUSH 5,000 unit PRN PRN Administration APTT (SECONDS) <40 Heparin Sodium (Porcine) 1,000 unit 03/04/20 22:30 03/06/20 22:49 Heparin - IVPUSH 1,000 unit PRN PRN Administration APTT (SECONDS) 40-49 Heparin Sodium/Dextrose 25,000 units in 500 mls @ 20 mls/hr 03/04/20 22:15 03/14/20 03:45 Heparin Infusion - IVPB 950 units/hr TITR [facility] 19 mls/hr Administration Protocol 1,000 UNITS/HR Latanoprost 1 drop 03/03/20 10:00 03/14/20 09:14 Xalatan 0.005% Eye Drops - OD Not Given DAILY [facility] Mirtazapine 7.5 mg 03/12/20 22:00 03/13/20 21:19 Remeron - PO 7.5 mg HS [facility] Administration Phenobarbital 30 mg 03/04/20 23:00 03/14/20 09:14 Phenobarbital - PO 30 mg BID [facility] Administration Warfarin Sodium 10 mg 03/13/20 18:00 03/13/20 17:18 Coumadin - PO 10 mg DAILY@1800 [facility] Administration Laboratory Results - last 24 hr 03/13/20 03/14/20 03/14/20 14:15 06:57 06:57 WBC 3.8 L RBC 2.18 L Hgb 7.1 L Hct 20.9 L MCV 95.6 MCH 32.3 MCHC 33.8 RDW 13.9 Plt Count 146 MPV 8.5 PT with INR 15.20 H INR 1.28 H PTT (Actin FS) 53.1 H 50.2 H Sodium Potassium Chloride Carbon Dioxide Anion Gap BUN Creatinine Est GFR (CKD-EPI)AfAm Est GFR (CKD-EPI)NonAf Random Glucose Calcium Total Bilirubin AST ALT Alkaline Phosphatase Total Protein Albumin 03/14/20 06:57 WBC RBC Hgb Hct MCV MCH MCHC RDW Plt Count MPV PT with INR INR PTT (Actin FS) Sodium 142 Potassium 4.1 Chloride 109 H Carbon Dioxide 27 Anion Gap 7 L BUN 32.8 H Creatinine 1.9 H Est GFR (CKD-EPI)AfAm 41.07 Est GFR (CKD-EPI)NonAf 35.44 Random Glucose 87 Calcium 8.5 Total Bilirubin 0.3 AST 70 H ALT 86 H Alkaline Phosphatase 38 L Total Protein 6.1 L Albumin 2.2 L S1 S2 RRR cachetic Lungs decreased Abd- soft, NT B/L upper arm edema no leg edema A/P lung CA right renal cell CA acute kidney injury right brachial DVT failure to thrive anemia SZD -- iv fluids dc -- oncology eval noted -- cultures all negative -- [facility] -- [facility] -- renal function slight worsen -- off reyes -- increased coumadin today-- 8 mg -- check INR -- continue heparin drip -- barium swallow study results noted -- apparently pt wants to resume chemo -- per palliative notes -- plan -->INR to be therapeutic, - possible dc to [facility] soon with follow up appt with DR Treadwell as outpatient
[2020-03-14] MEDS: WARFARIN NA 5 MG TABLET PO SCH (17:13)
[2020-03-14] MEDS: MIRTAZAPINE 15 MG TABLET (FP) PO SCH (21:48)
[2020-03-15 07:22] LABS: BASO % 0.2 % (0-2.0); HEMATOCRIT 20.5 % (35.4-49); LYMPH % 27.1 % (8-40); MCH 32.1 pg (25.7-33.7); MCHC 33.6 g/dl (32.0-35.9); MEAN CELL VOLUME 95.5 fl (80-96); MEAN PLT VOLUME 8.2 fl (7.5-11.1); MONO % 28.2 % (3.8-10.2); NEUT % 44.5 % (42.8-82.8); PLATELET COUNT 146 K/MM3 (134-434); RBC 2.15 M/mm3 (4.00-5.60); RDW 13.9 % (11.9-15.9); WHITE BLOOD COUNT 3.6 K/mm3 (4.0-10.0)
[2020-03-15 07:23] LABS: INR 1.31 (0.83-1.09); PROTHROMBIN TIME (PATIENT) 15.5 SEC (9.7-13.0)
[2020-03-15 07:25] LABS: HEMOGLOBIN 6.9 GM/dL (11.7-16.9)
[2020-03-15 08:07] LABS: BLOOD UREA NITROGEN 39.7 mg/dL (7-18); CALCIUM 8.5 mg/dL (8.5-10.1); CREATININE 1.9 mg/dL (0.55-1.3); POTASSIUM 4.2 mmol/L (3.5-5.1)
[2020-03-15] MEDS: HEPARIN NA (PORCINE) 5,000 UNITS/ML 1ML VIAL IVPUSH PRN (08:22)
[2020-03-15] MEDS: HEPARIN INFUSION - 25,000 UNITS/500 ML INFUS.BAG IVPB SCH ×3 (08:25→22:20)
[2020-03-15 08:54] LABS: ANISOCYTOSIS 0; MACROCYTOSIS 0; PLATELET ESTIMATE DECREASED
[2020-03-15] MEDS: AMINO ACIDS/PROTEIN HYDROLYS 30 ML LIQUID.PKT PO SCH ×2 (09:51→18:34)
[2020-03-15] MEDS: PHENobarbital 30 MG TABLET PO SCH ×2 (09:51→21:17)
[2020-03-15] MEDS: LATANOPROST 0.005% OPHTH SOLN 2.5ML BOTTLE OD SCH (09:53)
--- NOTE | 2020-03-15 11:12 | PN ---
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, Physician History of Present Illness: Pt seen/ examined Awake No distress comfortable denies pain chronic ill appearance all f/u noted On Heparin drip + coumadin no obvious bleeding stool for occult -ve Hb - around 7 again-- going to be transfused today - Current Medication List Current Medications: Active Medications Amino Acids (Prosource No Carb Liquid Pkt) 30 ml PO BID@0800,1730 [facility] Last Admin: 03/15/20 09:51 Dose: 30 ml Documented by: Heparin Sodium (Porcine) (Heparin -) 5,000 unit IVPUSH PRN PRN PRN Reason: APTT (SECONDS) <40 Last Admin: 03/06/20 22:48 Dose: 5,000 unit Documented by: Heparin Sodium (Porcine) (Heparin -) 1,000 unit IVPUSH PRN PRN PRN Reason: APTT (SECONDS) 40-49 Last Admin: 03/15/20 08:22 Dose: 1,000 unit Documented by: Heparin Sodium/Dextrose (Heparin Infusion -) 25,000 units in 500 mls @ 20 mls/hr IVPB TITR [facility]; Protocol Last Admin: 03/15/20 09:51 Dose: 1,050 units/hr, 21 mls/hr Documented by: Latanoprost (Xalatan 0.005% Eye Drops -) 1 drop OD DAILY [facility] Last Admin: 03/15/20 09:53 Dose: Not Given Documented by: Mirtazapine (Remeron -) 7.5 mg PO HS [facility] Last Admin: 03/14/20 21:48 Dose: 7.5 mg Documented by: Phenobarbital (Phenobarbital -) 30 mg PO BID [facility] Last Admin: 03/15/20 09:51 Dose: 30 mg Documented by: Warfarin Sodium (Coumadin -) 10 mg PO DAILY@1800 [facility] Last Admin: 03/14/20 17:13 Dose: 10 mg Documented by: - Objective Vital Signs: Vital Signs Temperature 98 F 03/15/20 09:00 Pulse Rate 69 03/15/20 09:00 Respiratory Rate 18 03/15/20 09:00 Blood Pressure 139/62 03/15/20 09:00 O2 Sat by Pulse Oximetry (%) 98 03/15/20 09:00 Constitutional: Yes: No Distress Neck: Yes: Supple Cardiovascular: Yes: Regular Rate and Rhythm Respiratory: Yes: Diminished Gastrointestinal: Yes: Soft Edema: No Neurological: Yes: Alert Labs: CBC, BMP 03/15/20 06:50 03/15/20 06:50 INR, PTT INR 1.31 (0.83-1.09) H 03/15/20 06:50 Problem List - Problems (1) Lung cancer, primary, with metastasis from lung to other site Code(s): C34.90 - MALIGNANT NEOPLASM OF UNSP PART OF UNSP BRONCHUS OR LUNG (2) DVT (deep venous thrombosis) Code(s): I82.409 - ACUTE EMBOLISM AND THOMBOS UNSP DEEP VN UNSP LOWER EXTREMITY (3) DONALDO (acute kidney injury) Code(s): N17.9 - ACUTE KIDNEY FAILURE, UNSPECIFIED (4) Toxic metabolic encephalopathy Code(s): G92 - TOXIC ENCEPHALOPATHY Assessment/Plan Stable Multiple issues as Listed 1. Acute Renal failure-- better 2. 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 Anemia 6. Elevated liver enzymes- better stool for occult blood -ve Continue present care on coumadin transfuse prn will follow d/w Rn also will follow
--- NOTE | 2020-03-15 14:22 | PN ---
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, Physician History of Present Illness: Pt seen and examined at bedside. He is awake and alert. He denies shortness of breath. - Current Medication List Current Medications: Active Medications Amino Acids (Prosource No Carb Liquid Pkt) 30 ml PO BID@0800,1730 [facility] Last Admin: 03/15/20 09:51 Dose: 30 ml Documented by: Heparin Sodium (Porcine) (Heparin -) 5,000 unit IVPUSH PRN PRN PRN Reason: APTT (SECONDS) <40 Last Admin: 03/06/20 22:48 Dose: 5,000 unit Documented by: Heparin Sodium (Porcine) (Heparin -) 1,000 unit IVPUSH PRN PRN PRN Reason: APTT (SECONDS) 40-49 Last Admin: 03/15/20 08:22 Dose: 1,000 unit Documented by: Heparin Sodium/Dextrose (Heparin Infusion -) 25,000 units in 500 mls @ 20 mls/hr IVPB TITR [facility]; Protocol Last Admin: 03/15/20 09:51 Dose: 1,050 units/hr, 21 mls/hr Documented by: Latanoprost (Xalatan 0.005% Eye Drops -) 1 drop OD DAILY [facility] Last Admin: 03/15/20 09:53 Dose: Not Given Documented by: Mirtazapine (Remeron -) 7.5 mg PO HS [facility] Last Admin: 03/14/20 21:48 Dose: 7.5 mg Documented by: Phenobarbital (Phenobarbital -) 30 mg PO BID [facility] Last Admin: 03/15/20 09:51 Dose: 30 mg Documented by: Warfarin Sodium (Coumadin -) 10 mg PO DAILY@1800 [facility] Last Admin: 03/14/20 17:13 Dose: 10 mg Documented by: - Objective Vital Signs: Vital Signs Temperature 98 F 03/15/20 09:00 Pulse Rate 69 03/15/20 09:00 Respiratory Rate 18 03/15/20 09:00 Blood Pressure 139/62 03/15/20 09:00 O2 Sat by Pulse Oximetry (%) 98 03/15/20 09:00 Constitutional: Yes: Calm Eyes: Yes: Conjunctiva Clear HENT: Yes: Atraumatic Cardiovascular: Yes: S1, S2 Respiratory: Yes: CTA Bilaterally Gastrointestinal: Yes: Soft Genitourinary: Yes: WNL Musculoskeletal: Yes: WNL Edema: No Neurological: Yes: Oriented Psychiatric: Yes: Oriented Labs: CBC, BMP 03/15/20 06:50 03/15/20 06:50 INR, PTT INR 1.31 (0.83-1.09) H 03/15/20 06:50 Problem List - Problems (1) DONALDO (acute kidney injury) Code(s): N17.9 - ACUTE KIDNEY FAILURE, UNSPECIFIED (2) Hyperkalemia Code(s): E87.5 - HYPERKALEMIA Assessment/Plan Current Medications Generic Name Dose Route Start Last Admin Trade Name Freq PRN Reason Stop Dose Admin Amino Acids 30 ml 03/09/20 17:30 03/15/20 09:51 Prosource No Carb Liquid Pkt PO 30 ml BID@0800,1730 [facility] Administration Heparin Sodium (Porcine) 5,000 unit 03/04/20 22:30 03/06/20 22:48 Heparin - IVPUSH 5,000 unit PRN PRN Administration APTT (SECONDS) <40 Heparin Sodium (Porcine) 1,000 unit 03/04/20 22:30 03/15/20 08:22 Heparin - IVPUSH 1,000 unit PRN PRN Administration APTT (SECONDS) 40-49 Heparin Sodium/Dextrose 25,000 units in 500 mls @ 20 mls/hr 03/04/20 22:15 03/15/20 09:51 Heparin Infusion - IVPB 1,050 units/hr TITR [facility] 21 mls/hr Administration Protocol 1,000 UNITS/HR Latanoprost 1 drop 03/03/20 10:00 03/15/20 09:53 Xalatan 0.005% Eye Drops - OD Not Given DAILY [facility] Mirtazapine 7.5 mg 03/12/20 22:00 03/14/20 21:48 Remeron - PO 7.5 mg HS [facility] Administration Phenobarbital 30 mg 03/04/20 23:00 03/15/20 09:51 Phenobarbital - PO 30 mg BID [facility] Administration Warfarin Sodium 10 mg 03/13/20 18:00 03/14/20 17:13 Coumadin - PO 10 mg DAILY@1800 [facility] Administration Impression 1. DONALDO 2. hyperkalemia 3. met acidosis 4. 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 epilepsy 7. dementia 8. anemia Plan - conditioner tumbler rising - encourage po intake - will give 1/2 ns - repeat labs in am - monitor hg
--- NOTE | 2020-03-15 14:52 | PN ---
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, [employer] - Note 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: Selected Entries 03/11/20 03/11/20 03/12/20 09:17 22:00 06:12 Breakfast 0 Diet Tolerated Refused Temperature 98.7 F Blood Pressure 152/69 03/12/20 03/12/20 09:59 10:00 Breakfast 0 Diet Tolerated Refused Temperature 98.4 F Blood Pressure 120/52 L Laboratory Tests 03/12/20 06:00 WBC 3.9 L Selected Entries 03/14/20 03/14/20 03/14/20 09:20 13:33 19:36 Breakfast 25% Diet Tolerated Poor Poor Lunch Skin Risk Level Total Score - Skin Risk Assessment Temperature Blood Pressure 03/14/20 03/15/20 03/15/20 22:00 06:00 09:00 Breakfast Diet Tolerated Poor Lunch Skin Risk Level Total Score - Skin Risk Assessment Temperature 98.3 F 98 F Blood Pressure 134/55 L 139/62 03/15/20 10:00 Breakfast Diet Tolerated Poor Lunch 25% Skin Risk Level Very High Risk Total Score - 8 Skin Risk Assessment Temperature Blood Pressure Laboratory Tests 03/15/20 06:50 WBC 3.6 L 1. Acute Renal failure-- better 2. 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 Anemia 6. Elevated liver enzymes MBS completed.Swallowing is functional. Poor PO intake. Megace ordered. Encouraged 3-4 Ensure daily to supplement but poor po acceptance of food Still not eating a lot. Full code followed by palliative care . PEG for supplemental nutrition?
--- NOTE | 2020-03-15 18:32 | PN ---
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 (short form) - Note 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: Palliative care f/up 69yo M fwjak metastatic lung cancer on chemo- last treatment 02/11/20, renal mass ? RCC, COPD, seizures on phenobarbital, dementia, anemia , neuropathy on gabapentin, admitted on 03/02 for "FTT, AMS, and abnormal labs." Per [facility] chart, patient has had a recent functional decline and has been refusing chemo. He was admitted with disorientation and confusion and at baseline as per family he is able to converse and is oriented x1-2. He was diagnosed with lung cancer 4 years ago and underwent sx , chemo / radiation at that time. He has been in [facility] since then. He was on chemotherapy currently and last reported treatment was on 02/11/20. He has had a functional decline, decreased appetite, not able to get out of bed, more confused. He refused his most recent chemotherapy session as per group home records. He was found to have severe anemia, pancytopenia ( not neutropenic), hypernatremia, hyperchloremia, DONALDO, acidosis, hepatitis, rhabdo and hyperkalemia. CT abdo/ pelvis- 5.7 x 4.4 cm neoplastic mass rt renal pole, dilated CBD 12 mm, pancreatic duct 4 mm- MRCP recommended. CTH mild soft tissue swelling lat/ sup margin rt orbit- ? mets. CT chest- severe COPD, no mass, no mets. He has received multiple blood transfusions - again today for Hb < 7 , persistent elevation in bun/cr, hyperkalemia, hypomagnasemia, metabolic acidosis. He is tolerating pureed diet with thin liquids but poor appetite persists. He was found to have DVT rt brachial vein and is on heparin drip, being transitioned to coumadin. His primary oncologist is Dr Treadwell. poor appetite- dysgeusia AAO x1 NAD VSS afebrile MMM chest- CTAB P/A soft no c/c/e 69 y/o patient, h/o stage III lung cancer in 2018 s/p chemo/RT, recurrent lung lesion in 2019 , on carbo/alimta/pembrolizumab, last dose 02/11/20 anemia: ? myelosuppression, ? anemia of chr disease, gama pos but haptoglobin nl and LDH 300- unlikely hemolytic anemia, stool guiac neg x 3- started on procrit Ac on CKD- with metabolic acidosis Renal mass- neoplastic dysphagia, FTT, cognitive decline, dehydration abnl LFT severe COPD Rt brachial vein DVT- on heparin drip, being transitioned to coumadin dementia Overall prognosis poor in view of possible second malignancy and overall physical and cognitive decline. Mr Dupont does not have a HCP and does not have advanced directives. He does wish to continue his treatments and will f/up with Dr Treadwell after dc. Supportive care to continue. Prognosis poor. nutritional supplements mirtazapine, add marinol avoid megace/ procrit ( increased risk of thrombosis) PEG placement is unlikely to be of benefit PT Will follow. Problem List - Problems (1) DONALDO (acute kidney injury) Code(s): N17.9 - ACUTE KIDNEY FAILURE, UNSPECIFIED (2) DVT (deep venous thrombosis) Code(s): I82.409 - ACUTE EMBOLISM AND THOMBOS UNSP DEEP VN UNSP LOWER EXTREMITY (3) Lung cancer, primary, with metastasis from lung to other site Code(s): C34.90 - MALIGNANT NEOPLASM OF UNSP PART OF UNSP BRONCHUS OR LUNG (4) Renal cancer Code(s): C64.9 - MALIGNANT NEOPLASM OF UNSP KIDNEY, EXCEPT RENAL PELVIS (5) Toxic metabolic encephalopathy Code(s): G92 - TOXIC ENCEPHALOPATHY
[2020-03-15] MEDS: WARFARIN NA 5 MG TABLET PO SCH (18:53)
--- NOTE | 2020-03-15 19:27 | CON.GI ---
Consult Consult Specialty:: Gastroenterology Referred by:: Dr. Monroe Chaves Reason for Consultation:: Anemia - History of Present Illness Chief Complaint: Weakness History of Present Illness: 69M with stage 3 lung cancer, a right renal malignant appearing mass and dilation of the pancreatic and common bile ducts has a dwindling Hb. He is hear of hearing but denies abdominal pain or overt rectal bleeding. He admits to chacha ordaz a poor appetite but denies early satiety or dysphagia. He tells me that he is missing his lower dentures. He passed his MBS. I mentioned a feeding gastrostomy tube to supplement his caloric intake but tells me he does not want this. 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 IPMN) Hepatobiliary: Yes: Other (dilated CBD 12mm and pancreatyic ducts 4mm ) Renal/: Yes: Renal Inusuff, BPH, Cancer (right malignant apperaing renal mass) Heme/Onc: Yes: Anemia Infectious Disease: Yes: Other (COVID 19 at [facility]) Psych: Yes: Depression Rheumatology: Yes: Other (osteoarthritis) Additional Medical History: Glaucoma - Past Surgical History Additional Surgical History: left chest port insertion. 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 Place of : [place] History of Recent Travel: No Home Medications - Allergies Allergies/Adverse Reactions: Allergies Allergy/AdvReac Type Severity Reaction Status Date / Time No Known Allergies Allergy Verified 03/02/20 14:04 - Home Medications Home Medications: Ambulatory Orders Ferrous Sulfate [Iron] 325 mg PO DAILY 03/02/20 Fluorometholone 0.1% Oph Oint 1 drop OD DAILY 03/02/20 Gabapentin 300 mg PO DAILY 03/02/20 Guaifenesin [Yane-Tussin] 100 mg PO DAILY 03/02/20 Latanoprost 0.005% Eye Drops [Xalatan 0.005% Eye Drops -] 1 drop OD DAILY 03/02/20 Morphine *Immediate Release* [Msir -] 30 mg PO Q4H 03/02/20 Ondansetron HCl [Zofran] 4 mg PO PRN 03/02/20 Phenobarbital 32.4 mg PO PRN 03/02/20 Ropinirole HCl [Requip Xl] 4 mg PO DAILY 03/02/20 Tamsulosin HCl [Flomax] 0.4 mg PO DAILY 03/02/20 Family Medical History Family History: Unable to Obtain Review of Systems Unable to obtain ROS, reason: poor historian Physical Exam-GI Vital Signs: Vital Signs Temperature 99.0 F 03/15/20 18:39 Pulse Rate 66 03/15/20 18:39 Respiratory Rate 18 03/15/20 18:39 Blood Pressure 121/58 L 03/15/20 18:39 O2 Sat by Pulse Oximetry (%) 98 03/15/20 09:00 CBC,CMP WBC 3.6 K/mm3 (4.0-10.0) L 03/15/20 06:50 RBC 2.15 M/mm3 (4.00-5.60) L 03/15/20 06:50 Hgb 6.9 GM/dL (11.7-16.9) L* 03/15/20 06:50 Hct 20.5 % (35.4-49) L 03/15/20 06:50 MCV 95.5 fl (80-96) 03/15/20 06:50 MCH 32.1 pg (25.7-33.7) 03/15/20 06:50 MCHC 33.6 g/dl (32.0-35.9) 03/15/20 06:50 RDW 13.9 % (11.9-15.9) 03/15/20 06:50 Plt Count 146 K/MM3 (134-434) 03/15/20 06:50 MPV 8.2 fl (7.5-11.1) 03/15/20 06:50 Absolute Neuts (auto) 1.6 K/mm3 (1.5-8.0) 03/15/20 06:50 Neutrophils % 44.5 % (42.8-82.8) 03/15/20 06:50 Neutrophils % (Manual) 42.6 % (42.8-82.8) L 03/15/20 06:50 Band Neutrophils % 0.0 % 03/15/20 06:50 Lymphocytes % 27.1 % (8-40) 03/15/20 06:50 Lymphocytes % (Manual) 38.6 % (8-40) 03/15/20 06:50 Monocytes % 28.2 % (3.8-10.2) H 03/15/20 06:50 Monocytes % (Manual) 19 % (3.8-10.2) H D 03/15/20 06:50 Eosinophils % 0.0 % (0-4.5) 03/15/20 06:50 Eosinophils % (Manual) 0.0 % (0-4.5) 03/15/20 06:50 Basophils % 0.2 % (0-2.0) 03/15/20 06:50 Basophils % (Manual) 0.0 % (0-2.0) 03/15/20 06:50 Myelocytes % (Man) 0 % (0-2) D 03/15/20 06:50 Promyelocytes % (Man) 0 % (0-2) 03/15/20 06:50 Blast Cells % (Manual) 0 % (0-0) 03/15/20 06:50 Nucleated RBC % 0 % (0-0) 03/15/20 06:50 Metamyelocytes 0 % (0-2) D 03/15/20 06:50 Smudge Cells 5 03/08/20 06:48 Hypochromia 0 03/15/20 06:50 Toxic Granulation 1+ 03/07/20 08:00 Platelet Estimate Decreased 03/15/20 06:50 Platelet Comment Present 03/03/20 06:10 Polychromasia 0 03/15/20 06:50 Poikilocytosis 0 03/15/20 06:50 Anisocytosis 0 03/15/20 06:50 Microcytosis 0 03/15/20 06:50 Macrocytosis 0 03/15/20 06:50 Spherocytes 1+ 03/07/20 08:00 Ovalocytes 1+ 03/08/20 06:48 Rouleaux 1+ 03/08/20 06:48 Haptoglobin 332 mg/dL (32-363) 03/07/20 08:00 Sodium 140 mmol/L (136-145) 03/15/20 06:50 Potassium 4.2 mmol/L (3.5-5.1) 03/15/20 06:50 Chloride 107 mmol/L (98-107) 03/15/20 06:50 Carbon Dioxide 28 mmol/L (21-32) 03/15/20 06:50 Anion Gap 5 MMOL/L (8-16) L 03/15/20 06:50 BUN 39.7 mg/dL (7-18) H 03/15/20 06:50 Creatinine 1.9 mg/dL (0.55-1.3) H 03/15/20 06:50 Est GFR (CKD-EPI)AfAm 41.07 03/15/20 06:50 Est GFR (CKD-EPI)NonAf 35.44 03/15/20 06:50 POC Glucometer 116 UNITS (80-120) 03/02/20 13:41 Random Glucose 94 mg/dL (74-106) 03/15/20 06:50 Lactic Acid 0.9 mmol/L (0.4-2.0) 03/02/20 13:57 Calcium 8.5 mg/dL (8.5-10.1) 03/15/20 06:50 Magnesium 1.7 mg/dL (1.8-2.4) L 03/12/20 06:00 Iron 155 ug/dL (50-175) 03/03/20 06:00 TIBC 163 ug/dL (250-450) L 03/02/20 23:23 Iron Saturation 81 % (17.5-39) H 03/02/20 23:23 Unsaturated IBC 30 ug/dL (200-275) L 03/02/20 23:23 Total Bilirubin 0.3 mg/dL (0.2-1) 03/14/20 06:57 AST 70 U/L (15-37) H 03/14/20 06:57 ALT 86 U/L (13-61) H 03/14/20 06:57 Alkaline Phosphatase 38 U/L (45-117) L 03/14/20 06:57 LD Total 309 U/L (87-246) H 03/07/20 08:00 Creatine Kinase 112 U/L (26-308) 03/09/20 06:00 Creatine Kinase Index 0.1 % (0.0-5.0) 03/04/20 07:00 CK-MB (CK-2) 1.3 ng/mL (0.5-3.6) 03/04/20 07:00 Troponin I < 0.02 ng/ml (0.00-0.05) 03/02/20 13:57 Total Protein 6.1 g/dl (6.4-8.2) L 03/14/20 06:57 Albumin 2.2 g/dl (3.4-5.0) L 03/14/20 06:57 Vitamin B12 3135 pg/ml (193-986) H 03/07/20 08:00 Folate 1178 ng/mL (>498) 03/07/20 08:00 Folate Hemolysate 265.0 ng/mL (Not Estab.) 03/07/20 08:00 TSH 1.39 uIU/ml (0.358-3.74) 03/07/20 08:00 Free T4 1.28 ng/dl (0.76-1.16) H 03/07/20 08:00 Current Medications Generic Name Dose Route Start Last Admin Trade Name Freq PRN Reason Stop Dose Admin Amino Acids 30 ml 03/09/20 17:30 03/15/20 18:34 Prosource No Carb Liquid Pkt PO Not Given BID@0800,1730 [facility] Heparin Sodium (Porcine) 5,000 unit 03/04/20 22:30 03/06/20 22:48 Heparin - IVPUSH 5,000 unit PRN PRN Administration APTT (SECONDS) <40 Heparin Sodium (Porcine) 1,000 unit 03/04/20 22:30 03/15/20 08:22 Heparin - IVPUSH 1,000 unit PRN PRN Administration APTT (SECONDS) 40-49 Heparin Sodium/Dextrose 25,000 units in 500 mls @ 20 mls/hr 03/04/20 22:15 03/15/20 09:51 Heparin Infusion - IVPB 1,050 units/hr TITR [facility] 21 mls/hr Administration Protocol 1,000 UNITS/HR Sodium Chloride 1,000 mls @ 42 mls/hr 03/15/20 14:30 1/2 Normal Saline IV ASDIR [facility] Latanoprost 1 drop 03/03/20 10:00 03/15/20 09:53 Xalatan 0.005% Eye Drops - OD Not Given DAILY [facility] Mirtazapine 7.5 mg 03/12/20 22:00 03/14/20 21:48 Remeron - PO 7.5 mg HS [facility] Administration Phenobarbital 30 mg 03/04/20 23:00 03/15/20 09:51 Phenobarbital - PO 30 mg BID [facility] Administration Warfarin Sodium 10 mg 03/13/20 18:00 03/15/20 18:53 Coumadin - PO 10 mg DAILY@1800 [facility] Administration Constitutional: Yes: Calm Eyes: Yes: Conjunctiva Clear HENT: Yes: Other (hard of hearing) Neck: Yes: Trachea Midline Cardiovascular: Yes: Regular Rate and Rhythm Respiratory: Yes: Hyperresonant, Rhonchi Gastrointestinal Inspection: Yes: WNL ...Auscultate: Yes: Normoactive Bowel Sounds ...Palpate: Yes: Soft, Other (nontender) ...Rectal Exam: Yes: Guaiac Negative (impacted with light brown colored g negative stool) Edema: No Neurological: Yes: Alert Labs: CBC, BMP 03/15/20 06:50 03/15/20 06:50 INR, PTT INR 1.31 (0.83-1.09) H 03/15/20 06:50 Laboratory Tests 03/02/20 03/02/20 03/02/20 13:57 13:57 14:05 PT with INR 11.60 INR 0.98 BUN 101.2 H Creatinine 5.0 H Total Bilirubin 0.3 AST 101 H ALT 55 Alkaline Phosphatase 43 L COVID-19 (EFRAIN) Not detected 03/04/20 03/07/20 07:00 08:00 PT with INR INR BUN 30.1 H Creatinine 1.8 H Total Bilirubin 0.3 0.5 AST 163 H 87 H ALT 110 H 76 H Alkaline Phosphatase 42 L 41 L COVID-19 (EFRAIN) Problem List - Problems (1) Anemia Code(s): D64.9 - ANEMIA, UNSPECIFIED (2) Elevated liver enzymes Code(s): R74.8 - ABNORMAL LEVELS OF OTHER SERUM ENZYMES (3) Seizures Code(s): R56.9 - UNSPECIFIED CONVULSIONS (4) Deaf Code(s): H91.90 - UNSPECIFIED HEARING LOSS, UNSPECIFIED EAR (5) COPD (chronic obstructive pulmonary disease) Code(s): J44.9 - CHRONIC OBSTRUCTIVE PULMONARY DISEASE, UNSPECIFIED (6) Alcohol drinking problem Code(s): Z72.89 - OTHER PROBLEMS RELATED TO LIFESTYLE (7) Tobacco dependence due to cigarettes Code(s): F17.210 - NICOTINE DEPENDENCE, CIGARETTES, UNCOMPLICATED (8) COVID-19 ruled out Code(s): Z03.818 - ENCNTR FOR OBS FOR SUSP EXPSR TO OTH BIOLG AGENTS RULED OUT (9) DONALDO (acute kidney injury) Code(s): N17.9 - ACUTE KIDNEY FAILURE, UNSPECIFIED (10) DVT (deep venous thrombosis) Code(s): I82.409 - ACUTE EMBOLISM AND THOMBOS UNSP DEEP VN UNSP LOWER EXTREMITY (11) Lung cancer, primary, with metastasis from lung to other site Code(s): C34.90 - MALIGNANT NEOPLASM OF UNSP PART OF UNSP BRONCHUS OR LUNG (12) Renal cancer Code(s): C64.9 - MALIGNANT NEOPLASM OF UNSP KIDNEY, EXCEPT RENAL PELVIS (13) Transient alteration of awareness Code(s): R40.4 - TRANSIENT ALTERATION OF AWARENESS Assessment/Plan Impression: - There is no occult blood found on stool guaiac exam. Chadd is refusing EGD and colonoscopy. He also refuses a feeding tube. I discussed this with his sister Dai who is his ira care proxy and she accepts his decision. - Elevated liver enzymes. NO metastases seen on CT but this not preclude microscopic invasion. I suspect however that he probably has chronic alcoholic liver disease ( His sister tells me that he drank heavily) with some superimposed chemo related DILI. He has double duct sign on CT that is usually associated with pancreatic cancer or cholangiocarcinoma but I would expect alk phos and bilirubin elevations if this were in play - Fecal impaction - Plan: -- Agree [facility] trial -- PPI prophylaxis empirically -- Liver disease screening -- Miralax to relieve impaction
[2020-03-15] MEDS: MIRTAZAPINE 15 MG TABLET (FP) PO SCH (21:17)
[2020-03-15] MEDS: POLYETHYLENE GLYCOL 3350 119 GM BTL PO SCH (21:18)
--- NOTE | 2020-03-16 05:46 | PN.HO ---
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 (short form) - Note 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: Patient more alert. Comfortable following commands AFVSS Cor: RSR, No murmurs, No gallops Lungs: Clear to P&A Abd: Soft, Normal bowel sounds, No organomegaly Ext:No significant edema LAbs/Meds reviewed A/P 69 y/o patient, h/o stage III lung cancer in 2017 s/p chemo/RT, recurrent lung lesion in 2019 , on carbo/alimta/pembrolizumab, last dose 02/11/20 admitted with renal failure, anemia, CT a/p -- rt. renal mass suspicious for neoplasm aswell. Stable per primary treating team COVID testing negative 1. DONALDO---improving 2. hyperkalemia 3. met acidosis 4. 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 epilepsy 7. dementia 8. anemia---- myelosuppression. chronic disease /ckd. No obvious bleeding. Jorge + but haptoglobin nl/LDH--300s.No active hemolysis Monitor aand transfuse as necessary CT c/a/p non con --rt. renal mass/ post op. and COPD changes int he lung Needs to f/u with Dr. Treadwell as outpatient Being bridged from heparin to coumadin for h/o DVT
[2020-03-16 08:18] LABS: ALBUMIN 2.2 g/dl (3.4-5.0); BILIRUBIN,TOTAL 0.3 mg/dL (0.2-1); BLOOD UREA NITROGEN 37.3 mg/dL (7-18); CALCIUM 8.4 mg/dL (8.5-10.1); CREATININE 1.8 mg/dL (0.55-1.3); POTASSIUM 4.3 mmol/L (3.5-5.1); TOT PROT 6.3 g/dl (6.4-8.2)
[2020-03-16] MEDS: AMINO ACIDS/PROTEIN HYDROLYS 30 ML LIQUID.PKT PO SCH ×2 (09:12→17:58)
[2020-03-16] MEDS: PHENobarbital 30 MG TABLET PO SCH ×2 (09:12→20:59)
[2020-03-16] MEDS: PANTOPRAZOLE 40 MG TABLET PO SCH (09:12)
[2020-03-16] MEDS: POLYETHYLENE GLYCOL 3350 119 GM BTL PO SCH ×2 (09:12→20:59)
[2020-03-16] MEDS: LATANOPROST 0.005% OPHTH SOLN 2.5ML BOTTLE OD SCH (09:13)
--- NOTE | 2020-03-16 10:40 | PN ---
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, [employer] - Note 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: Selected Entries 03/15/20 03/15/20 03/16/20 10:00 14:48 10:01 Breakfast 50% 50% Diet Tolerated Poor Fair Fair Lunch 25% 50% Laboratory Tests 03/15/20 06:50 WBC 3.6 L Appreciate Palliative care/Oncology/GI consults- Supportive care to continue. Prognosis poor. PEG placement is unlikely to be of benefit and not desired by pt. Per EMR, taking 50%. Encourage 3-4 Ensure daily to supplement
[2020-03-16] MEDS: HEPARIN INFUSION - 25,000 UNITS/500 ML INFUS.BAG IVPB SCH (11:08)
--- NOTE | 2020-03-16 12:08 | PN ---
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 (short form) - Note 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: Pt examined events noted eating slightly better today he is taking coumadin no blood in stools received PRBC yesterday Vital Signs - 24 hr 03/15/20 03/15/20 03/15/20 18:39 21:00 22:00 Temperature 99.0 F 98.7 F Pulse Rate 66 81 Respiratory 18 18 Rate Blood Pressure 121/58 L 124/66 O2 Sat by Pulse 98 98 Oximetry (%) 03/16/20 03/16/20 03/16/20 05:27 09:00 10:00 Temperature 98.8 F 97.9 F Pulse Rate 69 68 Respiratory 18 19 Rate Blood Pressure 149/68 156/76 O2 Sat by Pulse 98 98 98 Oximetry (%) Current Medications Generic Name Dose Route Start Last Admin Trade Name Freq PRN Reason Stop Dose Admin Amino Acids 30 ml 03/09/20 17:30 03/16/20 09:12 Prosource No Carb Liquid Pkt PO 30 ml BID@0800,1730 [facility] Administration Heparin Sodium (Porcine) 5,000 unit 03/04/20 22:30 03/06/20 22:48 Heparin - IVPUSH 5,000 unit PRN PRN Administration APTT (SECONDS) <40 Heparin Sodium (Porcine) 1,000 unit 03/04/20 22:30 03/15/20 08:22 Heparin - IVPUSH 1,000 unit PRN PRN Administration APTT (SECONDS) 40-49 Heparin Sodium/Dextrose 25,000 units in 500 mls @ 20 mls/hr 03/04/20 22:15 03/16/20 11:08 Heparin Infusion - IVPB 950 units/hr TITR [facility] 19 mls/hr Administration Protocol 1,000 UNITS/HR Sodium Chloride 1,000 mls @ 42 mls/hr 03/15/20 14:30 1/2 Normal Saline IV ASDIR [facility] Latanoprost 1 drop 03/03/20 10:00 03/16/20 09:13 Xalatan 0.005% Eye Drops - OD Not Given DAILY [facility] Mirtazapine 7.5 mg 03/12/20 22:00 03/15/20 21:17 Remeron - PO 7.5 mg HS [facility] Administration Pantoprazole Sodium 40 mg 03/16/20 10:00 03/16/20 09:12 Protonix - PO 40 mg DAILY [facility] Administration Phenobarbital 30 mg 03/04/20 23:00 03/16/20 09:12 Phenobarbital - PO 30 mg BID [facility] Administration Polyethylene Glycol 17 gm 03/15/20 22:00 03/16/20 09:12 Miralax (For Daily Use) - PO 17 gm BID [facility] Administration Warfarin Sodium 10 mg 03/13/20 18:00 03/15/20 18:53 Coumadin - PO 10 mg DAILY@1800 [facility] Administration Laboratory Results - last 24 hr 03/13/20 03/15/20 03/16/20 08:50 15:40 06:15 Retic Count PTT (Actin FS) 69.4 H Sodium 141 Potassium 4.3 Chloride 108 H Carbon Dioxide 28 Anion Gap 5 L BUN 37.3 H Creatinine 1.8 H Est GFR (CKD-EPI)AfAm 43.84 Est GFR (CKD-EPI)NonAf 37.83 Random Glucose 87 Calcium 8.4 L Total Bilirubin 0.3 AST 53 H ALT 70 H Alkaline Phosphatase 41 L Total Protein 6.3 L Albumin 2.2 L Blood Type O POSITIVE Antibody Screen Negative Crossmatch See Detail 03/16/20 03/16/20 06:15 06:15 Retic Count 1.73 H PTT (Actin FS) 89.8 H Sodium Potassium Chloride Carbon Dioxide Anion Gap BUN Creatinine Est GFR (CKD-EPI)AfAm Est GFR (CKD-EPI)NonAf Random Glucose Calcium Total Bilirubin AST ALT Alkaline Phosphatase Total Protein Albumin Blood Type Antibody Screen Crossmatch S1 S2 RRR cachetic Lungs decreased Abd- soft, NT B/L upper arm edema no leg edema A/P lung CA right renal cell CA acute kidney injury right brachial DVT failure to thrive anemia SZD -- iv fluids -- low volume -- oncology eval noted -- cultures all negative -- last chemo per [facility] -- 02/11/20 -- renal function slight worsen -- off reyes -- increased coumadin today-- 10 mg -- check INR -- continue heparin drip -- apparently pt wants to resume chemo -- per palliative notes -- plan -->INR to be therapeutic, - possible dc to [facility] soon with follow up appt with DR Treadwell as outpatient
--- NOTE | 2020-03-16 14:21 | PN ---
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, Physician History of Present Illness: Pt seen and examined at bedside. He is awake and appears comfortable. - Current Medication List Current Medications: Active Medications Amino Acids (Prosource No Carb Liquid Pkt) 30 ml PO BID@0800,1730 [facility] Last Admin: 03/16/20 09:12 Dose: 30 ml Documented by: Heparin Sodium (Porcine) (Heparin -) 5,000 unit IVPUSH PRN PRN PRN Reason: APTT (SECONDS) <40 Last Admin: 03/06/20 22:48 Dose: 5,000 unit Documented by: Heparin Sodium (Porcine) (Heparin -) 1,000 unit IVPUSH PRN PRN PRN Reason: APTT (SECONDS) 40-49 Last Admin: 03/15/20 08:22 Dose: 1,000 unit Documented by: Heparin Sodium/Dextrose (Heparin Infusion -) 25,000 units in 500 mls @ 20 mls/hr IVPB TITR [facility]IL[facility]; Protocol Last Admin: 03/16/20 11:08 Dose: 950 units/hr, 19 mls/hr Documented by: Sodium Chloride (1/2 Normal Saline) 1,000 mls @ 42 mls/hr IV ASDIR [facility] Latanoprost (Xalatan 0.005% Eye Drops -) 1 drop OD DAILY [facility] Last Admin: 03/16/20 09:13 Dose: Not Given Documented by: Mirtazapine (Remeron -) 7.5 mg PO HS [facility] Last Admin: 03/15/20 21:17 Dose: 7.5 mg Documented by: Multivitamins/Minerals (Certavite-Antioxidant Liquid) 15 ml PO DAILY [facility] Pantoprazole Sodium (Protonix -) 40 mg PO DAILY [facility] Last Admin: 03/16/20 09:12 Dose: 40 mg Documented by: Phenobarbital (Phenobarbital -) 30 mg PO BID [facility] Last Admin: 03/16/20 09:12 Dose: 30 mg Documented by: Polyethylene Glycol (Miralax (For Daily Use) -) 17 gm PO BID [facility] Last Admin: 03/16/20 09:12 Dose: 17 gm Documented by: Warfarin Sodium (Coumadin -) 10 mg PO DAILY@1800 [facility] Last Admin: 03/15/20 18:53 Dose: 10 mg Documented by: - Objective Vital Signs: Vital Signs Temperature 97.9 F 03/16/20 10:00 Pulse Rate 68 03/16/20 10:00 Respiratory Rate 19 03/16/20 10:00 Blood Pressure 156/76 03/16/20 10:00 O2 Sat by Pulse Oximetry (%) 98 03/16/20 10:00 Constitutional: Yes: Calm Eyes: Yes: Conjunctiva Clear HENT: Yes: Atraumatic Neck: Yes: Supple Cardiovascular: Yes: S1, S2 Respiratory: Yes: CTA Bilaterally Gastrointestinal: Yes: Normal Bowel Sounds, Soft Genitourinary: Yes: WNL Musculoskeletal: Yes: WNL Edema: Yes Neurological: Yes: Oriented Labs: CBC, BMP 03/15/20 06:50 03/16/20 06:15 INR, PTT INR 1.31 (0.83-1.09) H 03/15/20 06:50 Problem List - Problems (1) DONALDO (acute kidney injury) Code(s): N17.9 - ACUTE KIDNEY FAILURE, UNSPECIFIED (2) Hyperkalemia Code(s): E87.5 - HYPERKALEMIA Assessment/Plan Current Medications Generic Name Dose Route Start Last Admin Trade Name Freq PRN Reason Stop Dose Admin Amino Acids 30 ml 03/09/20 17:30 03/16/20 09:12 Prosource No Carb Liquid Pkt PO 30 ml BID@0800,1730 [facility] Administration Heparin Sodium (Porcine) 5,000 unit 03/04/20 22:30 03/06/20 22:48 Heparin - IVPUSH 5,000 unit PRN PRN Administration APTT (SECONDS) <40 Heparin Sodium (Porcine) 1,000 unit 03/04/20 22:30 03/15/20 08:22 Heparin - IVPUSH 1,000 unit PRN PRN Administration APTT (SECONDS) 40-49 Heparin Sodium/Dextrose 25,000 units in 500 mls @ 20 mls/hr 03/04/20 22:15 03/16/20 11:08 Heparin Infusion - IVPB 950 units/hr TITR [facility] 19 mls/hr Administration Protocol 1,000 UNITS/HR Sodium Chloride 1,000 mls @ 42 mls/hr 03/15/20 14:30 1/2 Normal Saline IV ASDIR [facility] Latanoprost 1 drop 03/03/20 10:00 03/16/20 09:13 Xalatan 0.005% Eye Drops - OD Not Given DAILY [facility] Mirtazapine 7.5 mg 03/12/20 22:00 03/15/20 21:17 Remeron - PO 7.5 mg HS [facility] Administration Multivitamins/Minerals 15 ml 03/17/20 10:00 Certavite-Antioxidant Liquid PO DAILY [facility] Pantoprazole Sodium 40 mg 03/16/20 10:00 03/16/20 09:12 Protonix - PO 40 mg DAILY [facility] Administration Phenobarbital 30 mg 03/04/20 23:00 03/16/20 09:12 Phenobarbital - PO 30 mg BID [facility] Administration Polyethylene Glycol 17 gm 03/15/20 22:00 03/16/20 09:12 Miralax (For Daily Use) - PO 17 gm BID [facility] Administration Warfarin Sodium 10 mg 03/13/20 18:00 03/15/20 18:53 Coumadin - PO 10 mg DAILY@1800 [facility] Administration Impression 1. DONALDO 2. hyperkalemia 3. met acidosis 4. 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 epilepsy 7. dementia 8. anemia Plan - monitor renal function - repeat labs in am - cont 08/28 ns - repeat labs in am - monitor hg
--- NOTE | 2020-03-16 15:44 | PN ---
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 (short form) - Note 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: Palliative care f/up 69yo M fwjak metastatic lung cancer on chemo- last treatment 02/11/20, renal mass ? RCC, COPD, seizures on phenobarbital, dementia, anemia , neuropathy on gabapentin, admitted on 03/02 for "FTT, AMS, and abnormal labs." Per CT chart, patient has had a recent functional decline and has been refusing chemo. He was admitted with disorientation and confusion and at baseline as per family he is able to converse and is oriented x1-2. He was diagnosed with lung cancer 4 years ago and underwent sx , chemo / radiation at that time. He has been in [facility] since then. He was on chemotherapy currently and last reported treatment was on 02/11/20. He has had a functional decline, decreased appetite, not able to get out of bed, more confused. He refused his most recent chemotherapy session as per alf records. He was found to have severe anemia, pancytopenia ( not neutropenic), hypernatremia, hyperchloremia, DONALDO, acidosis, hepatitis, rhabdo and hyperkalemia. CT abdo/ pelvis- 5.7 x 4.4 cm neoplastic mass rt renal pole, dilated CBD 12 mm, pancreatic duct 4 mm- MRCP recommended. CTH mild soft tissue swelling lat/ sup margin rt orbit- ? mets. CT chest- severe COPD, no mass, no mets. He has received multiple blood transfusions - again today for Hb < 7 , persistent elevation in bun/cr, hyperkalemia, hypomagnasemia, metabolic acidosis. He is tolerating pureed diet with thin liquids but poor appetite persists. He was found to have DVT rt brachial vein and is on heparin drip, being transitioned to coumadin. His primary oncologist is Dr Treadwell. poor appetite- dysgeusia AAO x1 NAD VSS afebrile MMM chest- CTAB P/A soft no c/c/e 69 y/o patient, h/o stage III lung cancer in 2018 s/p chemo/RT, recurrent lung lesion in 2019 , on carbo/alimta/pembrolizumab, last dose 02/11/20 anemia: ? myelosuppression, ? anemia of chr disease, gama pos but haptoglobin nl and LDH 300- unlikely hemolytic anemia, stool guiac neg x 3- started on procrit Ac on CKD- with metabolic acidosis Renal mass- neoplastic dysphagia, FTT, cognitive decline, dehydration abnl LFT severe COPD Rt brachial vein DVT- on heparin drip, being transitioned to coumadin dementia Overall prognosis poor in view of possible second malignancy and overall physical and cognitive decline. Mr Dupont does not have a HCP and does not have advanced directives. He does wish to continue his treatments and will f/up with Dr Treadwell after dc. Supportive care to continue. Prognosis poor. nutritional supplements mirtazapine, add marinol avoid megace/ procrit ( increased risk of thrombosis) PEG placement is unlikely to be of benefit and patient refused it He wants to be discharged as he thinks once he has his dentures and hearing aide and can resume his treatments he will feel better. He will need weekly cbc on dc PT Unclear if he is a candidate for further chemo given severe anemia, dementia, debility. Problem List - Problems (1) DONALDO (acute kidney injury) Code(s): N17.9 - ACUTE KIDNEY FAILURE, UNSPECIFIED (2) DVT (deep venous thrombosis) Code(s): I82.409 - ACUTE EMBOLISM AND THOMBOS UNSP DEEP VN UNSP LOWER EXTREMITY (3) Lung cancer, primary, with metastasis from lung to other site Code(s): C34.90 - MALIGNANT NEOPLASM OF UNSP PART OF UNSP BRONCHUS OR LUNG (4) Renal cancer Code(s): C64.9 - MALIGNANT NEOPLASM OF UNSP KIDNEY, EXCEPT RENAL PELVIS (5) Toxic metabolic encephalopathy Code(s): G92 - TOXIC ENCEPHALOPATHY
--- NOTE | 2020-03-16 16:40 | PN.GI ---
GI 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 Subjective: GI Note: No overt bleeding overnight. NO repeat abs as he has no easy IV access. He tells me that he wants to go home, No BM yet - Objective Vital Signs: Vital Signs Temperature 98.3 F 03/16/20 14:48 Pulse Rate 70 03/16/20 14:48 Respiratory Rate 03/16/20 14:48 Blood Pressure 136/62 03/16/20 14:48 O2 Sat by Pulse Oximetry (%) 99 03/16/20 14:48 Constitutional: Calm ...Auscultate: Yes: Normoactive Bowel Sounds ...Palpate: Yes: Soft, Other (nontender) Labs: CBC, BMP 03/15/20 06:50 03/16/20 06:15 INR, PTT INR 1.31 (0.83-1.09) H 03/15/20 06:50 Assessment/Plan Impression: - No occult blood found on stool guaiac exam. Refused EGD, colonoscopy and a feeding tube. - Elevated liver enzymes. NO metastases seen on CT but this not preclude microscopic invasion. I suspect however that he probably has chronic alcoholic liver disease ( His sister tells me that he drank heavily) with some superimposed chemo related DILI. He has double duct sign on CT that is usually associated with pancreatic cancer or cholangiocarcinoma but I would expect alk phos and bilirubin elevations if this were in play - Fecal impaction Plan: -- Agree [facility] trial -- PPI prophylaxis empirically -- Await liver disease screening -- Miralax to relieve impaction Problem List - Problems (1) Anemia Code(s): D64.9 - ANEMIA, UNSPECIFIED (2) Elevated liver enzymes Code(s): R74.8 - ABNORMAL LEVELS OF OTHER SERUM ENZYMES (3) Seizures Code(s): R56.9 - UNSPECIFIED CONVULSIONS (4) Deaf Code(s): H91.90 - UNSPECIFIED HEARING LOSS, UNSPECIFIED EAR (5) COPD (chronic obstructive pulmonary disease) Code(s): J44.9 - CHRONIC OBSTRUCTIVE PULMONARY DISEASE, UNSPECIFIED (6) Alcohol drinking problem Code(s): Z72.89 - OTHER PROBLEMS RELATED TO LIFESTYLE (7) Tobacco dependence due to cigarettes Code(s): F17.210 - NICOTINE DEPENDENCE, CIGARETTES, UNCOMPLICATED (8) COVID-19 ruled out Code(s): Z03.818 - ENCNTR FOR OBS FOR SUSP EXPSR TO [facility] RULED OUT (9) DONALDO (acute kidney injury) Code(s): N17.9 - ACUTE KIDNEY FAILURE, UNSPECIFIED (10) DVT (deep venous thrombosis) Code(s): I82.409 - ACUTE EMBOLISM AND THOMBOS UNSP DEEP VN UNSP LOWER EXTREMITY (11) Lung cancer, primary, with metastasis from lung to other site Code(s): C34.90 - MALIGNANT NEOPLASM OF UNSP PART OF UNSP BRONCHUS OR LUNG (12) Renal cancer Code(s): C64.9 - MALIGNANT NEOPLASM OF UNSP KIDNEY, EXCEPT RENAL PELVIS (13) Transient alteration of awareness Code(s): R40.4 - TRANSIENT ALTERATION OF AWARENESS
[2020-03-16 17:32] LABS: HEMATOCRIT 25.8 % (35.4-49); HEMOGLOBIN 8.7 GM/dL (11.7-16.9); MCH 31.8 pg (25.7-33.7); MCHC 33.6 g/dl (32.0-35.9); MEAN CELL VOLUME 94.6 fl (80-96); MEAN PLT VOLUME 8.5 fl (7.5-11.1); PLATELET COUNT 157 K/MM3 (134-434); RBC 2.72 M/mm3 (4.00-5.60); RDW 15.4 % (11.9-15.9); WHITE BLOOD COUNT 3.8 K/mm3 (4.0-10.0)
[2020-03-16 17:39] LABS: INR 1.33 (0.83-1.09); PROTHROMBIN TIME (PATIENT) 15.7 SEC (9.7-13.0)
[2020-03-16 17:42] LABS: ACTIVATED PTT 57.5 SECONDS (25.2-36.5)
[2020-03-16] MEDS: SODIUM CHLORIDE 0.45% 1,000 ML IV SCH (17:58)
[2020-03-16] MEDS: WARFARIN NA 5 MG TABLET PO SCH (17:59)
[2020-03-16] MEDS: MIRTAZAPINE 15 MG TABLET (FP) PO SCH (20:59)
[2020-03-17] MEDS: HEPARIN INFUSION - 25,000 UNITS/500 ML INFUS.BAG IVPB SCH ×2 (07:08→21:47)
[2020-03-17] MEDS ORDERED: PT OWN MED DRAWER 7, Y5N ONE (10:44)
[2020-03-17] MEDS: AMINO ACIDS/PROTEIN HYDROLYS 30 ML LIQUID.PKT PO SCH ×2 (10:45→17:48)
[2020-03-17] MEDS: MULTIVIT-MINERALS ORAL LIQUID PO SCH (10:46)
[2020-03-17] MEDS: POLYETHYLENE GLYCOL 3350 119 GM BTL PO SCH ×2 (10:46→21:46)
[2020-03-17] MEDS: PHENobarbital 30 MG TABLET PO SCH ×2 (10:46→21:47)
[2020-03-17] MEDS: PANTOPRAZOLE 40 MG TABLET PO SCH (10:46)
[2020-03-17] MEDS: LATANOPROST 0.005% OPHTH SOLN 2.5ML BOTTLE OD SCH (10:47)
[2020-03-17 10:51] LABS: HEMATOCRIT 25.7 % (35.4-49); HEMOGLOBIN 8.7 GM/dL (11.7-16.9); MCH 32.1 pg (25.7-33.7); MCHC 33.7 g/dl (32.0-35.9); MEAN CELL VOLUME 95.4 fl (80-96); MEAN PLT VOLUME 8.5 fl (7.5-11.1); PLATELET COUNT 147 K/MM3 (134-434); RDW 15.2 % (11.9-15.9); WHITE BLOOD COUNT 4.1 K/mm3 (4.0-10.0)
--- NOTE | 2020-03-17 10:53 | PN ---
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, SERVICES MANAGER - Note 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: Selected Entries 03/15/20 03/15/20 03/16/20 10:00 14:48 10:01 Breakfast 50% 50% Diet Tolerated Poor Fair Fair Lunch 25% 50% Laboratory Tests 03/15/20 06:50 WBC 3.6 L Selected Entries 03/16/20 03/16/20 03/16/20 05:27 10:00 10:01 Breakfast 50% Lunch Supper Temperature 98.8 F 97.9 F Blood Pressure 149/68 156/76 03/16/20 03/16/20 03/16/20 14:48 18:00 19:22 Breakfast Lunch 50% Supper 50% Temperature 98.3 F 98.8 F Blood Pressure 136/62 123/56 L 03/16/20 03/17/20 03/17/20 20:43 06:00 09:36 Breakfast 50% Lunch Supper Temperature 99.1 F 98.5 F Blood Pressure 126/56 L 148/80 03/17/20 10:00 Breakfast Lunch Supper Temperature 98.4 F Blood Pressure 137/64 Laboratory Tests 03/17/20 10:03 WBC 4.1 Per EMR, continues to accept 50%. Encourage 3-4 Ensure daily to supplement
[2020-03-17 10:58] LABS: INR 1.34 (0.83-1.09); PROTHROMBIN TIME (PATIENT) 15.9 SEC (9.7-13.0)
[2020-03-17 11:00] LABS: ACTIVATED PTT 73.7 SECONDS (25.2-36.5)
[2020-03-17 11:30] LABS: BLOOD UREA NITROGEN 39.2 mg/dL (7-18); CALCIUM 8.8 mg/dL (8.5-10.1); CREATININE 1.9 mg/dL (0.55-1.3); POTASSIUM 4.5 mmol/L (3.5-5.1)
--- NOTE | 2020-03-17 12:46 | PN ---
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, Physician History of Present Illness: Pt seen and examined at bedside. He is awake and tolerating diet. - Current Medication List Current Medications: Active Medications Amino Acids (Prosource No Carb Liquid Pkt) 30 ml PO BID@0800,1730 [facility] Last Admin: 03/17/20 10:45 Dose: 30 ml Documented by: Heparin Sodium (Porcine) (Heparin -) 5,000 unit IVPUSH PRN PRN PRN Reason: APTT (SECONDS) <40 Last Admin: 03/06/20 22:48 Dose: 5,000 unit Documented by: Heparin Sodium (Porcine) (Heparin -) 1,000 unit IVPUSH PRN PRN PRN Reason: APTT (SECONDS) 40-49 Last Admin: 03/15/20 08:22 Dose: 1,000 unit Documented by: Heparin Sodium/Dextrose (Heparin Infusion -) 25,000 units in 500 mls @ 20 mls/hr IVPB TITR [facility]; Protocol Last Admin: 03/17/20 07:08 Dose: 950 units/hr, 19 mls/hr Documented by: Sodium Chloride (1/2 Normal Saline) 1,000 mls @ 42 mls/hr IV ASDIR [facility] Last Admin: 03/16/20 17:58 Dose: 42 mls/hr Documented by: Latanoprost (Xalatan 0.005% Eye Drops -) 1 drop OD DAILY [facility] Last Admin: 03/17/20 10:47 Dose: Not Given Documented by: Mirtazapine (Remeron -) 7.5 mg PO HS [facility] Last Admin: 03/16/20 20:59 Dose: 7.5 mg Documented by: Multivitamins/Minerals (Certavite-Antioxidant Liquid) 15 ml PO DAILY [facility] Last Admin: 03/17/20 10:46 Dose: 15 ml Documented by: Pantoprazole Sodium (Protonix -) 40 mg PO DAILY [facility] Last Admin: 03/17/20 10:46 Dose: 40 mg Documented by: Phenobarbital (Phenobarbital -) 30 mg PO BID [facility] Last Admin: 03/17/20 10:46 Dose: 30 mg Documented by: Polyethylene Glycol (Miralax (For Daily Use) -) 17 gm PO BID [facility] Last Admin: 03/17/20 10:46 Dose: 17 gm Documented by: Warfarin Sodium (Coumadin -) 10 mg PO DAILY@1800 [facility] Last Admin: 03/16/20 17:59 Dose: 10 mg Documented by: - Objective Vital Signs: Vital Signs Temperature 98.4 F 03/17/20 10:00 Pulse Rate 63 03/17/20 10:00 Respiratory Rate 18 03/17/20 10:00 Blood Pressure 137/64 03/17/20 10:00 O2 Sat by Pulse Oximetry (%) 99 03/17/20 10:00 Constitutional: Yes: Calm Eyes: Yes: Conjunctiva Clear HENT: Yes: Atraumatic Neck: Yes: Supple Cardiovascular: Yes: S1, S2 Respiratory: Yes: CTA Bilaterally Gastrointestinal: Yes: Soft Genitourinary: Yes: WNL Musculoskeletal: Yes: WNL Edema: No Integumentary: Yes: WNL Neurological: Yes: Oriented Psychiatric: Yes: Oriented Labs: CBC, BMP 03/17/20 10:03 03/17/20 10:03 INR, PTT INR 1.34 (0.83-1.09) H 03/17/20 10:03 Problem List - Problems (1) DONALDO (acute kidney injury) Code(s): N17.9 - ACUTE KIDNEY FAILURE, UNSPECIFIED (2) Hyperkalemia Code(s): E87.5 - HYPERKALEMIA Assessment/Plan Current Medications Generic Name Dose Route Start Last Admin Trade Name Barbara PRN Reason Stop Dose Admin Amino Acids 30 ml 03/09/20 17:30 03/17/20 10:45 Prosource No Carb Liquid Pkt PO 30 ml BID@0800,1730 [facility] Administration Heparin Sodium (Porcine) 5,000 unit 03/04/20 22:30 03/06/20 22:48 Heparin - IVPUSH 5,000 unit PRN PRN Administration APTT (SECONDS) <40 Heparin Sodium (Porcine) 1,000 unit 03/04/20 22:30 03/15/20 08:22 Heparin - IVPUSH 1,000 unit PRN PRN Administration APTT (SECONDS) 40-49 Heparin Sodium/Dextrose 25,000 units in 500 mls @ 20 mls/hr 03/04/20 22:15 03/17/20 07:08 Heparin Infusion - IVPB 950 units/hr TITR [facility] 19 mls/hr Administration Protocol 1,000 UNITS/HR Sodium Chloride 1,000 mls @ 42 mls/hr 03/15/20 14:30 03/16/20 17:58 1/2 Normal Saline IV 42 mls/hr ASDIR [facility] Administration Latanoprost 1 drop 03/03/20 10:00 03/17/20 10:47 Xalatan 0.005% Eye Drops - OD Not Given DAILY [facility] Mirtazapine 7.5 mg 03/12/20 22:00 03/16/20 20:59 Remeron - PO 7.5 mg HS [facility] Administration Multivitamins/Minerals 15 ml 03/17/20 10:00 03/17/20 10:46 Certavite-Antioxidant Liquid PO 15 ml DAILY [facility] Administration Pantoprazole Sodium 40 mg 03/16/20 10:00 03/17/20 10:46 Protonix - PO 40 mg DAILY [facility] Administration Phenobarbital 30 mg 03/04/20 23:00 03/17/20 10:46 Phenobarbital - PO 30 mg BID [facility] Administration Polyethylene Glycol 17 gm 03/15/20 22:00 03/17/20 10:46 Miralax (For Daily Use) - PO 17 gm BID [facility] Administration Warfarin Sodium 10 mg 03/13/20 18:00 03/16/20 17:59 Coumadin - PO 10 mg DAILY@1800 [facility] Administration Impression 1. DONALDO 2. hyperkalemia 3. met acidosis 4. 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 epilepsy 7. dementia 8. anemia Plan - cont to monitor lytes - renal function appears to have stabilizes - encourage po intake - repeat labs in am - monitor hg
[2020-03-17] MEDS: SODIUM CHLORIDE 0.45% 1,000 ML IV SCH (14:30)
--- NOTE | 2020-03-17 15:17 | PN ---
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 (short form) - Note 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: Pt examined events noted eating slightly better today he is taking coumadin no blood in stools Vital Signs - 24 hr 03/16/20 03/16/20 03/16/20 18:00 20:43 21:00 Temperature 98.8 F 99.1 F Pulse Rate 71 72 Respiratory 20 19 19 Rate Blood Pressure 123/56 L 126/56 L O2 Sat by Pulse 97 97 Oximetry (%) 03/17/20 03/17/20 03/17/20 06:00 09:00 10:00 Temperature 98.5 F 98.4 F Pulse Rate 61 63 Respiratory 20 18 18 Rate Blood Pressure 148/80 137/64 O2 Sat by Pulse 100 99 99 Oximetry (%) 03/17/20 14:04 Temperature 98.4 F Pulse Rate 63 Respiratory 20 Rate Blood Pressure 129/62 O2 Sat by Pulse 100 Oximetry (%) Current Medications Generic Name Dose Route Start Last Admin Trade Name Freq PRN Reason Stop Dose Admin Amino Acids 30 ml 03/09/20 17:30 03/17/20 10:45 Prosource No Carb Liquid Pkt PO 30 ml BID@0800,1730 [facility] Administration Heparin Sodium (Porcine) 5,000 unit 03/04/20 22:30 03/06/20 22:48 Heparin - IVPUSH 5,000 unit PRN PRN Administration APTT (SECONDS) <40 Heparin Sodium (Porcine) 1,000 unit 03/04/20 22:30 03/15/20 08:22 Heparin - IVPUSH 1,000 unit PRN PRN Administration APTT (SECONDS) 40-49 Heparin Sodium/Dextrose 25,000 units in 500 mls @ 20 mls/hr 03/04/20 22:15 03/17/20 07:08 Heparin Infusion - IVPB 950 units/hr TITR [facility] 19 mls/hr Administration Protocol 1,000 UNITS/HR Sodium Chloride 1,000 mls @ 42 mls/hr 03/15/20 14:30 03/16/20 17:58 1/2 Normal Saline IV 42 mls/hr ASDIR [facility] Administration Latanoprost 1 drop 03/03/20 10:00 03/17/20 10:47 Xalatan 0.005% Eye Drops - OD Not Given DAILY [facility] Mirtazapine 7.5 mg 03/12/20 22:00 03/16/20 20:59 Remeron - PO 7.5 mg HS [facility] Administration Multivitamins/Minerals 15 ml 03/17/20 10:00 03/17/20 10:46 Certavite-Antioxidant Liquid PO 15 ml DAILY [facility] Administration Pantoprazole Sodium 40 mg 03/16/20 10:00 03/17/20 10:46 Protonix - PO 40 mg DAILY [facility] Administration Phenobarbital 30 mg 03/04/20 23:00 03/17/20 10:46 Phenobarbital - PO 30 mg BID [facility] Administration Polyethylene Glycol 17 gm 03/15/20 22:00 03/17/20 10:46 Miralax (For Daily Use) - PO 17 gm BID [facility] Administration Warfarin Sodium 10 mg 03/13/20 18:00 03/16/20 17:59 Coumadin - PO 10 mg DAILY@1800 [facility] Administration Warfarin Sodium 2.5 mg 03/17/20 18:00 Coumadin - PO 03/17/20 18:01 ONCE@1800 [facility] Laboratory Results - last 24 hr 03/16/20 03/16/20 03/16/20 06:15 16:53 16:53 WBC 3.8 L RBC 2.72 L Hgb 8.7 L Hct 25.8 L D MCV 94.6 MCH 31.8 MCHC 33.6 RDW 15.4 D Plt Count 157 MPV 8.5 PT with INR 15.70 H INR 1.33 H PTT (Actin FS) 57.5 H Sodium Potassium Chloride Carbon Dioxide Anion Gap BUN Creatinine Est GFR (CKD-EPI)AfAm Est GFR (CKD-EPI)NonAf Random Glucose Calcium LD Total CA 19-9 Antigen 2 Vitamin B12 03/17/20 03/17/20 03/17/20 10:03 10:03 10:03 WBC 4.1 RBC 2.70 L Hgb 8.7 L Hct 25.7 L MCV 95.4 MCH 32.1 MCHC 33.7 RDW 15.2 Plt Count 147 MPV 8.5 PT with INR 15.90 H INR 1.34 H PTT (Actin FS) 73.7 H Sodium 138 Potassium 4.5 Chloride 107 Carbon Dioxide 25 Anion Gap 6 L BUN 39.2 H Creatinine 1.9 H Est GFR (CKD-EPI)AfAm 41.07 Est GFR (CKD-EPI)NonAf 35.44 Random Glucose 107 H Calcium 8.8 LD Total 247 H CA 19-9 Antigen Vitamin B12 1747 H S1 S2 RRR cachetic Lungs decreased Abd- soft, NT B/L upper arm edema no leg edema A/P lung CA right renal cell CA acute kidney injury right brachial DVT failure to thrive anemia SZD -- iv fluids -- low volume -- oncology eval noted -- cultures all negative -- last chemo per [place] -- 02/11/20 -- renal function slight worsen -- off reyes -- increased coumadin today-- 10 mg - extra dose coumadin today 2mg -- check INR -- continue heparin drip -- apparently pt wants to resume chemo -- per palliative notes -- plan -->INR to be therapeutic, - possible dc to [place] soon with follow up appt with DR Treadwell as outpatient
[2020-03-17] MEDS: WARFARIN NA 5 MG TABLET PO SCH (17:48)
[2020-03-17] MEDS ORDERED: WARFARIN NA 2.5 MG TABLET PO ONE (18:00)
[2020-03-17 20:07] LABS: HEP B CORE AB, TOT Positive (Negative); TRANSGLUTAMINASE IGA < 2 U/mL (0-3); TRANSGLUTAMINASE IGG 4 U/mL (0-5)
[2020-03-17] MEDS: MIRTAZAPINE 15 MG TABLET (FP) PO SCH (21:47)
[2020-03-18 04:11] LABS: ALPHA 2 MACROGLOBULINS,QN 248 mg/dL (110-276); ALT(SGPT)P5P 68 IU/L (0-55); CHOLESTEROL TOTAL 137 mg/dL (100-199); FIBROSIS SCORE- 0.34 (0.00-0.21); GLUCOSE SERUM 71 mg/dL (65-99); HEIGHT. 72 in (.); WEIGHT. 180 LBS (.)
[2020-03-18] MEDS: PHENobarbital 30 MG TABLET PO SCH (09:18)
[2020-03-18] MEDS: MULTIVIT-MINERALS ORAL LIQUID PO SCH (09:18)
[2020-03-18] MEDS: AMINO ACIDS/PROTEIN HYDROLYS 30 ML LIQUID.PKT PO SCH ×2 (09:18→16:43)
[2020-03-18] MEDS: PANTOPRAZOLE 40 MG TABLET PO SCH (09:18)
[2020-03-18] MEDS: LATANOPROST 0.005% OPHTH SOLN 2.5ML BOTTLE OD SCH (09:19)
[2020-03-18] MEDS: POLYETHYLENE GLYCOL 3350 119 GM BTL PO SCH ×2 (09:20→21:58)
[2020-03-18 09:31] LABS: HEMATOCRIT 23.5 % (35.4-49); MCH 32.4 pg (25.7-33.7); MEAN CELL VOLUME 95.3 fl (80-96); MEAN PLT VOLUME 8.5 fl (7.5-11.1); PLATELET COUNT 139 K/MM3 (134-434); RBC 2.47 M/mm3 (4.00-5.60); WHITE BLOOD COUNT 3.6 K/mm3 (4.0-10.0)
[2020-03-18 09:39] LABS: INR 1.45 (0.83-1.09); PROTHROMBIN TIME (PATIENT) 17.2 SEC (9.7-13.0)
[2020-03-18 09:41] LABS: ALBUMIN 2.4 g/dl (3.4-5.0); BILIRUBIN,TOTAL 0.3 mg/dL (0.2-1); BLOOD UREA NITROGEN 38.6 mg/dL (7-18); CALCIUM 8.5 mg/dL (8.5-10.1); CREATININE 1.9 mg/dL (0.55-1.3); POTASSIUM 4.4 mmol/L (3.5-5.1); TOT PROT 6.7 g/dl (6.4-8.2)
[2020-03-18 09:42] LABS: ACTIVATED PTT 100.6 SECONDS (25.2-36.5)
--- NOTE | 2020-03-18 10:07 | PN ---
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 (short form) - Note 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: Palliative care f/up 69yo M fwith metastatic lung cancer on chemo- last treatment 02/11/20, renal mass ? RCC, COPD, seizures on phenobarbital, dementia, anemia , neuropathy on gabapentin, admitted on 03/02 for "FTT, AMS, and abnormal labs." Per [place] chart, patient has had a recent functional decline and has been refusing chemo. He was admitted with disorientation and confusion and at baseline as per family he is able to converse and is oriented x1-2. He was diagnosed with lung cancer 4 years ago and underwent sx , chemo / radiation at that time. He has been in [facility] since then. He was on chemotherapy currently and last reported treatment was on 02/11/20. He had a functional decline, decreased appetite, not able to get out of bed, more confused. He refused his most recent chemotherapy session as per skilled nursing records. He was found to have severe anemia, pancytopenia ( not neutropenic), hypernatremia, hyperchloremia, DONALDO, acidosis, hepatitis, rhabdo and hyperkalemia. CT abdo/ pelvis- 5.7 x 4.4 cm neoplastic mass rt renal pole, dilated CBD 12 mm, pancreatic duct 4 mm- MRCP recommended. CTH mild soft tissue swelling lat/ sup margin rt orbit- ? mets. CT chest- severe COPD, no mass, no mets. He has received multiple blood transfusions - resolving DONALDO on CKD. He is tolerating pureed diet with thin liquids - eating better. He has DVT rt brachial vein and is on heparin drip, being transitioned to coumadin. His primary oncologist is Dr Treadwell. AAO x1-2 NAD VSS afebrile MMM chest- CTAB P/A soft no c/c/e 69 y/o patient, h/o stage III lung cancer in 2018 s/p chemo/RT, recurrent lung lesion in 2019 , on carbo/alimta/pembrolizumab, last dose 02/11/20 anemia: ? myelosuppression, ? anemia of chr disease, gama pos but haptoglobin nl and LDH 300- unlikely hemolytic anemia, stool guiac neg x 3- CKD- Renal mass- neoplastic dysphagia, FTT, cognitive decline, dehydration - improving abnl LFT- ?alcoholic liver disease severe COPD- not o2 dependent Rt brachial vein DVT- on heparin drip, being transitioned to coumadin dementia [place] Overall prognosis poor in view of possible second malignancy and overall physical and cognitive decline. He does wish to continue his treatments and will f/up with Dr Treadwell after dc. Supportive care to continue. Prognosis poor. nutritional supplements mirtazapine, add marinol avoid megace/ procrit ( increased risk of thrombosis) PEG placement is unlikely to be of benefit and patient refused it He wants to be discharged as he thinks once he has his dentures and hearing aide and can resume his treatments he will feel better. He will need weekly cbc after dc PT/ rehab TO discuss with primary oncologist regarding continuation of chemo given anemia, dementia, debility. dc planning to SNF Problem List - Problems (1) DONALDO (acute kidney injury) Code(s): N17.9 - ACUTE KIDNEY FAILURE, UNSPECIFIED (2) DVT (deep venous thrombosis) Code(s): I82.409 - ACUTE EMBOLISM AND THOMBOS UNSP DEEP VN UNSP LOWER EXTREMITY (3) Lung cancer, primary, with metastasis from lung to other site Code(s): C34.90 - MALIGNANT NEOPLASM OF UNSP PART OF UNSP BRONCHUS OR LUNG (4) Renal cancer Code(s): C64.9 - MALIGNANT NEOPLASM OF UNSP KIDNEY, EXCEPT RENAL PELVIS (5) Toxic metabolic encephalopathy Code(s): G92 - TOXIC ENCEPHALOPATHY
[2020-03-18] MEDS ORDERED: HEPARIN NA (PORCINE) 5,000 UNITS/ML 1ML VIAL IVPUSH PRN ×2 (11:50)
--- NOTE | 2020-03-18 11:52 | PN ---
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 (short form) - Note 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: Pt examined events noted eating slightly better today he is taking coumadin no blood in stools Vital Signs - 24 hr 03/17/20 03/17/20 03/17/20 14:04 18:00 21:00 Temperature 98.4 F 99.1 F Pulse Rate 63 76 Respiratory 20 20 19 Rate Blood Pressure 129/62 145/62 O2 Sat by Pulse 100 98 99 Oximetry (%) 03/17/20 03/18/20 03/18/20 22:00 05:49 07:56 Temperature 99.1 F 98.2 F 98.4 F Pulse Rate 88 67 58 L Respiratory 19 19 20 Rate Blood Pressure 124/60 147/83 149/67 O2 Sat by Pulse 99 100 100 Oximetry (%) 03/18/20 09:00 Temperature Pulse Rate Respiratory 20 Rate Blood Pressure O2 Sat by Pulse 100 Oximetry (%) Current Medications Generic Name Dose Route Start Last Admin Trade Name Freq PRN Reason Stop Dose Admin Amino Acids 30 ml 03/09/20 17:30 03/18/20 09:18 Prosource No Carb Liquid Pkt PO 30 ml BID@0800,1730 [facility] Administration Heparin Sodium (Porcine) 1,000 unit 03/18/20 11:50 Heparin - IVPUSH PRN PRN Heparin Heparin Sodium (Porcine) 5,000 unit 03/18/20 11:50 Heparin - IVPUSH PRN PRN Heparin Sodium Chloride 1,000 mls @ 42 mls/hr 03/15/20 14:30 03/17/20 14:30 1/2 Normal Saline IV 42 mls/hr ASDIR [facility] Administration HEPARIN SOD,PORK IN 0.45% NACL 25,000 units in 500 mls @ 20 mls/hr 03/18/20 12:00 03/18/20 11:00 Heparin-1/2ns 25,000 Units/500 IVPB 850 units/hr TITR [facility] 17 mls/hr Administration Protocol 1,000 UNITS/HR Latanoprost 1 drop 03/03/20 10:00 03/18/20 09:19 Xalatan 0.005% Eye Drops - OD Not Given DAILY [facility] Mirtazapine 7.5 mg 03/12/20 22:00 03/17/20 21:47 Remeron - PO 7.5 mg HS [facility] Administration Multivitamins/Minerals 15 ml 03/17/20 10:00 03/18/20 09:18 Certavite-Antioxidant Liquid PO 15 ml DAILY [facility] Administration Pantoprazole Sodium 40 mg 03/16/20 10:00 03/18/20 09:18 Protonix - PO 40 mg DAILY [facility] Administration Polyethylene Glycol 17 gm 03/15/20 22:00 03/18/20 09:20 Miralax (For Daily Use) - PO 17 gm BID [facility] Administration Warfarin Sodium 10 mg 03/13/20 18:00 03/17/20 17:48 Coumadin - PO 10 mg DAILY@1800 [facility] Administration Warfarin Sodium 2.5 mg 03/18/20 18:00 Coumadin - PO 03/18/20 18:01 ONCE@1800 [facility] Laboratory Results - last 24 hr 03/13/20 03/16/20 03/17/20 08:50 06:15 12:38 WBC RBC Hgb Hct MCV MCH MCHC RDW Plt Count MPV C51 Pt Weight 180 C51 Pt Height 72 Haptoglobin 182 < 10 L PT with INR INR PTT (Actin FS) Sodium Potassium Chloride Carbon Dioxide Anion Gap BUN Creatinine Est GFR (CKD-EPI)AfAm Est GFR (CKD-EPI)NonAf Glucose 71 Random Glucose Calcium Total Bilirubin 0.2 GGT 37 AST 53 H ALT 68 H Alkaline Phosphatase Liver Fibrosis Score Liver Fib Fibro Score 0.34 H Liver Fibrosis Stage F1-f2 Total Protein Albumin [id number] 248 Triglycerides 90 Cholesterol 137 Apolipoprotein A-1 108 Tumor Marker AFP 2.3 CA 19-9 Antigen 2 Smooth Musc &PRINTER HELPER Intrp 13 Tiss Transglutamin IgG 4 Tiss Transglutamin IgA < 2 Hep A IgM Ab Confirm Negative Hepatitis A Ab Total Negative Hep Bs Antigen Negative Hep Bs Antibody Reactive Hep B Core Total Ab Positive H Hep B Core IgM Ab Negative Hepatitis Be Antibody Positive H Hepatitis Be Antigen Negative Blood Type O POSITIVE Antibody Screen Negative Crossmatch See Detail 03/18/20 03/18/20 03/18/20 07:30 07:30 07:30 WBC 3.6 L RBC 2.47 L Hgb 8.0 L Hct 23.5 L MCV 95.3 MCH 32.4 MCHC 34.0 RDW 15.0 Plt Count 139 MPV 8.5 C51 Pt Weight C51 Pt Height Haptoglobin PT with INR 17.20 H INR 1.45 H PTT (Actin FS) 100.6 H Sodium 142 Potassium 4.4 Chloride 109 H Carbon Dioxide 26 Anion Gap 6 L BUN 38.6 H Creatinine 1.9 H Est GFR (CKD-EPI)AfAm 41.07 Est GFR (CKD-EPI)NonAf 35.44 Glucose Random Glucose 89 Calcium 8.5 Total Bilirubin 0.3 GGT AST 40 H ALT 54 Alkaline Phosphatase 44 L Liver Fibrosis Score Liver Fib Fibro Score Liver Fibrosis Stage Total Protein 6.7 Albumin 2.4 L [id number] Triglycerides Cholesterol Apolipoprotein A-1 Tumor Marker AFP CA 19-9 Antigen Smooth Musc &PRINTER HELPER Intrp Tiss Transglutamin IgG Tiss Transglutamin IgA Hep A IgM Ab Confirm Hepatitis A Ab Total Hep Bs Antigen Hep Bs Antibody Hep B Core Total Ab Hep B Core IgM Ab Hepatitis Be Antibody Hepatitis Be Antigen Blood Type Antibody Screen Crossmatch S1 S2 RRR cachetic Lungs decreased Abd- soft, NT B/L upper arm edema no leg edema A/P lung CA right renal cell CA acute kidney injury right brachial DVT failure to thrive anemia SZD -- iv fluids -- low volume -- oncology eval noted -- cultures all negative -- last chemo per [place] -- 02/11/20 -- renal function slight worsen -- off reyes --coumadin -- 10 mg - extra dose coumadin today 2.5mg today -- check INR -- continue heparin drip -- apparently pt wants to resume chemo -- per palliative notes -- plan -->INR to be therapeutic, - possible dc to [place] soon with follow up appt with DR Treadwell as outpatient
[2020-03-18] MEDS ORDERED: HEPARIN SOD,PORK IN 0.45% NACL 25,000 UNITS/500 ML INFUS.BAG IVPB SCH (12:00)
--- NOTE | 2020-03-18 15:26 | PN ---
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, Physician History of Present Illness: Pt seen and examined. He has poor appetite today. - Current Medication List Current Medications: Active Medications Amino Acids (Prosource No Carb Liquid Pkt) 30 ml PO BID@0800,1730 [facility] Last Admin: 03/18/20 09:18 Dose: 30 ml Documented by: Heparin Sodium (Porcine) (Heparin -) 1,000 unit IVPUSH PRN PRN PRN Reason: Heparin Heparin Sodium (Porcine) (Heparin -) 5,000 unit IVPUSH PRN PRN PRN Reason: Heparin Sodium Chloride (1/2 Normal Saline) 1,000 mls @ 42 mls/hr IV ASDIR [facility] Last Admin: 03/17/20 14:30 Dose: 42 mls/hr Documented by: HEPARIN SOD,PORK IN 0.45% NACL (Heparin-1/2ns 25,000 Units/500) 25,000 units in 500 mls @ 20 mls/hr IVPB TITR [facility]; Protocol Last Admin: 03/18/20 11:00 Dose: 850 units/hr, 17 mls/hr Documented by: Latanoprost (Xalatan 0.005% Eye Drops -) 1 drop OD DAILY [facility] Last Admin: 03/18/20 09:19 Dose: Not Given Documented by: Mirtazapine (Remeron -) 7.5 mg PO [facility] Last Admin: 03/17/20 21:47 Dose: 7.5 mg Documented by: Multivitamins/Minerals (Certavite-Antioxidant Liquid) 15 ml PO DAILY [facility] Last Admin: 03/18/20 09:18 Dose: 15 ml Documented by: Pantoprazole Sodium (Protonix -) 40 mg PO DAILY [facility] Last Admin: 03/18/20 09:18 Dose: 40 mg Documented by: Polyethylene Glycol (Miralax (For Daily Use) -) 17 gm PO BID [facility] Last Admin: 03/18/20 09:20 Dose: 17 gm Documented by: Warfarin Sodium (Coumadin -) 10 mg PO DAILY@1800 [facility] Last Admin: 03/17/20 17:48 Dose: 10 mg Documented by: Warfarin Sodium (Coumadin -) 2.5 mg PO ONCE@1800 ONE Stop: 03/18/20 18:01 - Objective Vital Signs: Vital Signs Temperature 98.4 F 03/18/20 07:56 Pulse Rate 58 L 03/18/20 07:56 Respiratory Rate 20 07/23/20 09:00 Blood Pressure 149/67 03/18/20 07:56 O2 Sat by Pulse Oximetry (%) 100 03/18/20 09:00 Constitutional: Yes: Calm Eyes: Yes: Conjunctiva Clear HENT: Yes: Atraumatic Neck: Yes: Supple Cardiovascular: Yes: S1, S2 Respiratory: Yes: CTA Bilaterally Gastrointestinal: Yes: Soft ...Rectal Exam: Yes: WNL Musculoskeletal: Yes: WNL Edema: No Neurological: Yes: Oriented Psychiatric: Yes: Oriented Labs: CBC, BMP 03/18/20 07:30 03/18/20 07:30 INR, PTT INR 1.45 (0.83-1.09) H 03/18/20 07:30 Problem List - Problems (1) DONALDO (acute kidney injury) Code(s): N17.9 - ACUTE KIDNEY FAILURE, UNSPECIFIED (2) Hyperkalemia Code(s): E87.5 - HYPERKALEMIA Assessment/Plan Current Medications Generic Name Dose Route Start Last Admin Trade Name Freq PRN Reason Stop Dose Admin Amino Acids 30 ml 03/09/20 17:30 03/18/20 09:18 Prosource No Carb Liquid Pkt PO 30 ml BID@0800,1730 [facility] Administration Heparin Sodium (Porcine) 1,000 unit 03/18/20 11:50 Heparin - IVPUSH PRN PRN Heparin Heparin Sodium (Porcine) 5,000 unit 03/18/20 11:50 Heparin - IVPUSH PRN PRN Heparin Sodium Chloride 1,000 mls @ 42 mls/hr 03/15/20 14:30 03/17/20 14:30 1/2 Normal Saline IV 42 mls/hr ASDIR [facility] Administration HEPARIN SOD,PORK IN 0.45% NACL 25,000 units in 500 mls @ 20 mls/hr 03/18/20 12:00 03/18/20 11:00 Heparin-1/2ns 25,000 Units/500 IVPB 850 units/hr TITR [facility] 17 mls/hr Administration Protocol 1,000 UNITS/HR Latanoprost 1 drop 03/03/20 10:00 03/18/20 09:19 Xalatan 0.005% Eye Drops - OD Not Given DAILY [facility] Mirtazapine 7.5 mg 03/12/20 22:00 03/17/20 21:47 Remeron - PO 7.5 mg HS [facility] Administration Multivitamins/Minerals 15 ml 03/17/20 10:00 03/18/20 09:18 Certavite-Antioxidant Liquid PO 15 ml DAILY [facility] Administration Pantoprazole Sodium 40 mg 03/16/20 10:00 03/18/20 09:18 Protonix - PO 40 mg DAILY [facility] Administration Polyethylene Glycol 17 gm 03/15/20 22:00 03/18/20 09:20 Miralax (For Daily Use) - PO 17 gm BID [facility] Administration Warfarin Sodium 10 mg 03/13/20 18:00 03/17/20 17:48 Coumadin - PO 10 mg DAILY@1800 [facility] Administration Warfarin Sodium 2.5 mg 03/18/20 18:00 Coumadin - PO 03/18/20 18:01 ONCE@1800 ONE Impression 1. DONALDO 2. hyperkalemia 3. met acidosis 4. 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 epilepsy 7. dementia 8. 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
[2020-03-18] MEDS: SODIUM CHLORIDE 0.45% 1,000 ML IV SCH ×2 (16:42→16:43)
[2020-03-18] MEDS: WARFARIN NA 5 MG TABLET PO SCH (16:59)
[2020-03-18] MEDS ORDERED: WARFARIN NA 2.5 MG TABLET PO ONE (18:00)
[2020-03-18] MEDS: MIRTAZAPINE 15 MG TABLET (FP) PO SCH (21:58)
[2020-03-19 07:03] LABS: HEMATOCRIT 22.2 % (35.4-49); HEMOGLOBIN 7.4 GM/dL (11.7-16.9); MCH 31.5 pg (25.7-33.7); MCHC 33.3 g/dl (32.0-35.9); MEAN CELL VOLUME 94.6 fl (80-96); MEAN PLT VOLUME 8.8 fl (7.5-11.1); PLATELET COUNT 143 K/MM3 (134-434); RBC 2.35 M/mm3 (4.00-5.60); WHITE BLOOD COUNT 3.5 K/mm3 (4.0-10.0)
[2020-03-19 07:08] LABS: INR 1.65 (0.83-1.09); PROTHROMBIN TIME (PATIENT) 19.6 SEC (9.7-13.0)
[2020-03-19 08:52] LABS: ACTIVATED PTT 89.3 SECONDS (25.2-36.5)
[2020-03-19] MEDS: AMINO ACIDS/PROTEIN HYDROLYS 30 ML LIQUID.PKT PO SCH ×2 (08:53→16:29)
[2020-03-19] MEDS: PANTOPRAZOLE 40 MG TABLET PO SCH (09:02)
[2020-03-19] MEDS: MULTIVIT-MINERALS ORAL LIQUID PO SCH (09:02)
[2020-03-19] MEDS: POLYETHYLENE GLYCOL 3350 119 GM BTL PO SCH ×2 (09:02→21:55)
[2020-03-19] MEDS: LATANOPROST 0.005% OPHTH SOLN 2.5ML BOTTLE OD SCH (09:03)
--- NOTE | 2020-03-19 10:51 | PN ---
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, Physician History of Present Illness: Pt seen/ examined Awake comfortable No distress denies pain chronic ill appearance all f/u noted On Heparin drip + coumadin no bleeding - Current Medication List Current Medications: Active Medications Amino Acids (Prosource No Carb Liquid Pkt) 30 ml PO BID@0800,1730 [facility] Last Admin: 03/19/20 08:53 Dose: 30 ml Documented by: Apixaban (Eliquis -) 2.5 mg PO BID [facility] Sodium Chloride (1/2 Normal Saline) 1,000 mls @ 42 mls/hr IV ASDIR [facility] Last Admin: 03/18/20 16:43 Dose: 42 mls/hr Documented by: Latanoprost (Xalatan 0.005% Eye Drops -) 1 drop OD DAILY [facility] Last Admin: 03/19/20 09:03 Dose: Not Given Documented by: Mirtazapine (Remeron -) 7.5 mg PO HS [facility] Last Admin: 03/18/20 21:58 Dose: 7.5 mg Documented by: Multivitamins/Minerals (Certavite-Antioxidant Liquid) 15 ml PO DAILY [facility] Last Admin: 03/19/20 09:02 Dose: 15 ml Documented by: Pantoprazole Sodium (Protonix -) 40 mg PO DAILY [facility] Last Admin: 03/19/20 09:02 Dose: 40 mg Documented by: Polyethylene Glycol (Miralax (For Daily Use) -) 17 gm PO BID [facility] Last Admin: 03/19/20 09:02 Dose: 17 gm Documented by: - Objective Vital Signs: Vital Signs Temperature 98.5 F 03/19/20 08:05 Pulse Rate 63 03/19/20 08:05 Respiratory Rate 18 03/19/20 08:05 Blood Pressure 134/67 03/19/20 08:05 O2 Sat by Pulse Oximetry (%) 100 03/19/20 08:05 Constitutional: Yes: No Distress Neck: Yes: Supple Cardiovascular: Yes: Regular Rate and Rhythm Respiratory: Yes: Diminished Gastrointestinal: Yes: Soft Edema: LLE: Trace, RLE: Trace Neurological: Yes: Alert Labs: CBC, BMP 03/19/20 06:00 03/18/20 07:30 INR, PTT INR 1.65 (0.83-1.09) H 03/19/20 06:00 Problem List - Problems (1) Lung cancer, primary, with metastasis from lung to other site Code(s): C34.90 - MALIGNANT NEOPLASM OF UNSP PART OF UNSP BRONCHUS OR LUNG (2) DVT (deep venous thrombosis) Code(s): I82.409 - ACUTE EMBOLISM AND THOMBOS UNSP DEEP VN UNSP LOWER EXTREMITY (3) DONALDO (acute kidney injury) Code(s): N17.9 - ACUTE KIDNEY FAILURE, UNSPECIFIED (4) Toxic metabolic encephalopathy Code(s): G92 - TOXIC ENCEPHALOPATHY Assessment/Plan Stable But Multiple issues as Listed 1. Acute Renal failure-- better 2. 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 Anemia 6. Elevated liver enzymes- better stool for occult blood -ve few times Continue present care on coumadin -- inr remains subtherappeutic Pt has poor i/v access I d/w Dr. Gayle today Will switch to Eliquis d/c heparin/ coumadin Eating better Fluids per renal- consider d/c transfuse today will follow d/w Rn also Cbc in am If stable-- will consider d/c to [facility] in am
[2020-03-19] MEDS: APIXABAN 5 MG TABLET PO SCH ×2 (11:52→21:55)
--- NOTE | 2020-03-19 12:12 | PN ---
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 Po intake has improved to 50% No further f/u indicated.
--- NOTE | 2020-03-19 15:58 | PN ---
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, Physician History of Present Illness: Pt seen and examined at bedside. He is asking to go home. He denies shortness of breath. - Current Medication List Current Medications: Active Medications Amino Acids (Prosource No Carb Liquid Pkt) 30 ml PO BID@0800,1730 [facility] Last Admin: 03/19/20 08:53 Dose: 30 ml Documented by: Apixaban (Eliquis -) 5 mg PO BID [facility] Last Admin: 03/19/20 11:52 Dose: 5 mg Documented by: Sodium Chloride (1/2 Normal Saline) 1,000 mls @ 42 mls/hr IV ASDIR [facility] Last Admin: 03/18/20 16:43 Dose: 42 mls/hr Documented by: Latanoprost (Xalatan 0.005% Eye Drops -) 1 drop OD DAILY [facility] Last Admin: 03/19/20 09:03 Dose: Not Given Documented by: Mirtazapine (Remeron -) 7.5 mg PO HS [facility] Last Admin: 03/18/20 21:58 Dose: 7.5 mg Documented by: Multivitamins/Minerals (Certavite-Antioxidant Liquid) 15 ml PO DAILY [facility] Last Admin: 03/19/20 09:02 Dose: 15 ml Documented by: Pantoprazole Sodium (Protonix -) 40 mg PO DAILY [facility] Last Admin: 03/19/20 09:02 Dose: 40 mg Documented by: Polyethylene Glycol (Miralax (For Daily Use) -) 17 gm PO BID [facility] Last Admin: 03/19/20 09:02 Dose: 17 gm Documented by: - Objective Vital Signs: Vital Signs Temperature 99.1 F 03/19/20 13:31 Pulse Rate 71 03/19/20 13:31 Respiratory Rate 18 03/19/20 13:31 Blood Pressure 118/54 L 03/19/20 13:31 O2 Sat by Pulse Oximetry (%) 100 03/19/20 13:31 Constitutional: Yes: Calm Eyes: Yes: Conjunctiva Clear HENT: Yes: Atraumatic Neck: Yes: Supple Cardiovascular: Yes: S1, S2 Respiratory: Yes: CTA Bilaterally Gastrointestinal: Yes: Soft Genitourinary: Yes: WNL Musculoskeletal: Yes: WNL Edema: No Neurological: Yes: Oriented Psychiatric: Yes: Agitated Labs: CBC, BMP 03/19/20 06:00 03/18/20 07:30 INR, PTT INR 1.65 (0.83-1.09) H 03/19/20 06:00 Problem List - Problems (1) DONALDO (acute kidney injury) Code(s): N17.9 - ACUTE KIDNEY FAILURE, UNSPECIFIED (2) Hyperkalemia Code(s): E87.5 - HYPERKALEMIA Assessment/Plan Current Medications Generic Name Dose Route Start Last Admin Trade Name Barbara PRN Reason Stop Dose Admin Amino Acids 30 ml 03/09/20 17:30 03/19/20 08:53 Prosource No Carb Liquid Pkt PO 30 ml BID@0800,1730 [facility] Administration Apixaban 5 mg 03/19/20 11:15 03/19/20 11:52 Eliquis - PO 5 mg BID [facility] Administration Sodium Chloride 1,000 mls @ 42 mls/hr 03/15/20 14:30 03/18/20 16:43 1/2 Normal Saline IV 42 mls/hr ASDIR [facility] Administration Latanoprost 1 drop 03/03/20 10:00 03/19/20 09:03 Xalatan 0.005% Eye Drops - OD Not Given DAILY [facility] Mirtazapine 7.5 mg 03/12/20 22:00 03/18/20 21:58 Remeron - PO 7.5 mg HS [facility] Administration Multivitamins/Minerals 15 ml 03/17/20 10:00 03/19/20 09:02 Certavite-Antioxidant Liquid PO 15 ml DAILY [facility] Administration Pantoprazole Sodium 40 mg 03/16/20 10:00 03/19/20 09:02 Protonix - PO 40 mg DAILY [facility] Administration Polyethylene Glycol 17 gm 03/15/20 22:00 03/19/20 09:02 Miralax (For Daily Use) - PO 17 gm BID [facility] Administration Impression 1. DONALDO 2. hyperkalemia 3. met acidosis 4. 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 epilepsy 7. dementia 8. anemia Plan - monitor lytes - monitor renal function - can follow as outpt - avoid nsaids - avoid nephrotoxins
[2020-03-19] MEDS: SODIUM CHLORIDE 0.45% 1,000 ML IV SCH (17:48)
--- NOTE | 2020-03-19 21:16 | PN.HO ---
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 (short form) - Note 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: Patient more alert. Comfortable following commands AFVSS Cor: RSR, No murmurs, No gallops Lungs: Clear to P&A Abd: Soft, Normal bowel sounds, No organomegaly Ext:No significant edema LAbs/Meds reviewed A/P 69 y/o patient, h/o stage III lung cancer in 2017 s/p chemo/RT, recurrent lung lesion in 2019 , on carbo/alimta/pembrolizumab, last dose 02/11/20 admitted with renal failure, anemia, CT a/p -- rt. renal mass suspicious for neoplasm aswell. Stable per primary treating team COVID testing negative 1. DONALDO---improving 2. hyperkalemia 3. met acidosis 4. 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 epilepsy 7. dementia 8. anemia---- myelosuppression. chronic disease /ckd. No obvious bleeding. Gama + but haptoglobin nl/LDH--300s.No active hemolysis Monitor and transfuse as necessary CT c/a/p non con --rt. renal mass/ post op. and COPD changes int he lung Needs to f/u with Dr. Treadwell as outpatient Rt. brachial DVT --on eliquis 5mg bid anemia -- multifactorial ? gi bleed but stool occult neg. ? marrow suppression -- last chemotx 02/10 ? hemolysis--- LDH marginally elevated. Low haptoglobin?? gama +. Unlikely to be actively hemolysing as LDH marginally elevated ? chronic liver disease + HEp. C
[2020-03-19] MEDS: MIRTAZAPINE 15 MG TABLET (FP) PO SCH (21:55)
[2020-03-20] MEDS ORDERED: PORTA CATH FLUSH 10 ML IVPUSH PRN (02:30)
[2020-03-20 05:25] VITALS: TEMP 98.7
[2020-03-20 06:08] LABS: BASO % 0.3 % (0-2.0); EOS % 0.1 % (0-4.5); HEMATOCRIT 25.2 % (35.4-49); HEMOGLOBIN 8.6 GM/dL (11.7-16.9); LYMPH % 23.3 % (8-40); MCH 31.8 pg (25.7-33.7); MCHC 34.2 g/dl (32.0-35.9); MEAN PLT VOLUME 8.3 fl (7.5-11.1); MONO % 23.9 % (3.8-10.2); NEUT % 52.4 % (42.8-82.8); PLATELET COUNT 143 K/MM3 (134-434); RBC 2.71 M/mm3 (4.00-5.60); WHITE BLOOD COUNT 3.6 K/mm3 (4.0-10.0)
[2020-03-20 06:13] LABS: INR 1.52 (0.83-1.09)
[2020-03-20 06:16] LABS: ACTIVATED PTT 28.7 SECONDS (25.2-36.5)
[2020-03-20] MEDS ORDERED: PT OWN MED DRAWER 7, Y5N ONE (09:17)
[2020-03-20] MEDS: POLYETHYLENE GLYCOL 3350 119 GM BTL PO SCH (09:19)
[2020-03-20] MEDS: AMINO ACIDS/PROTEIN HYDROLYS 30 ML LIQUID.PKT PO SCH (09:20)
[2020-03-20] MEDS: APIXABAN 5 MG TABLET PO SCH (09:20)
[2020-03-20] MEDS: PANTOPRAZOLE 40 MG TABLET PO SCH (09:20)
[2020-03-20] MEDS: LATANOPROST 0.005% OPHTH SOLN 2.5ML BOTTLE OD SCH (09:21)
[2020-03-20] MEDS: MULTIVIT-MINERALS ORAL LIQUID PO SCH (09:21)
[2020-03-20 09:40] LABS: ANISOCYTOSIS 1+; PLATELET ESTIMATE NORMAL
[2020-03-20] MEDS ORDERED: FOLIC ACID 1 MG TABLET (FP) PO SCH (10:00)
--- NOTE | 2020-03-20 12:23 | PN ---
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 (short form) - Note 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: Patient seen in follow up. No complaints. No significant events overnight. Completed chemotherapy last night. Inpatient Meds reviewed. Current Medications Generic Name Dose Route Start Last Admin Trade Name Freq PRN Reason Stop Dose Admin Amino Acids 30 ml 03/09/20 17:30 03/20/20 09:20 Prosource No Carb Liquid Pkt PO 30 ml BID@0800,1730 [facility] Administration Apixaban 5 mg 03/19/20 11:15 03/20/20 09:20 Eliquis - PO 5 mg BID [facility] Administration Folic Acid 1 mg 03/20/20 10:00 03/20/20 10:56 Folic Acid - PO 1 mg DAILY [facility] Administration IV Flush 10 ml 03/20/20 02:30 03/20/20 06:04 Kaykay-Cath Flush IVPUSH 10 ml PRN PRN Administration maintain patency Sodium Chloride 1,000 mls @ 42 mls/hr 03/15/20 14:30 03/19/20 17:48 1/2 Normal Saline IV 42 mls/hr ASDIR [facility] Administration Latanoprost 1 drop 03/03/20 10:00 03/20/20 09:21 Xalatan 0.005% Eye Drops - OD Not Given DAILY [facility] Mirtazapine 7.5 mg 03/12/20 22:00 03/19/20 21:55 Remeron - PO 7.5 mg HS [facility] Administration Multivitamins/Minerals 15 ml 03/17/20 10:00 03/20/20 09:21 Certavite-Antioxidant Liquid PO 15 ml DAILY [facility] Administration Pantoprazole Sodium 40 mg 03/16/20 10:00 03/20/20 09:20 Protonix - PO 40 mg DAILY [facility] Administration Polyethylene Glycol 17 gm 03/15/20 22:00 03/20/20 09:19 Miralax (For Daily Use) - PO 17 gm BID [facility] Administration On Examination: Last Vital Signs Temp Pulse Resp BP Pulse Ox 98.7 F 68 16 130/64 100 03/20/20 10:00 03/20/20 10:00 03/20/20 10:00 03/20/20 10:00 03/20/20 10:00 General: In no acute distress, lying comfortably in bed. Extremities: No pallor or icterus. No pedal edema. No palpable lymphadenopathy. CVS: S1, S2, regular, no gallop or murmur. Chest: clear Abdomen: Non-distended Neuro: Alert, confused but interactive and co-operative, non-focal. Labs: CBC, BMP 03/20/20 05:25 03/18/20 07:30 Assessment. Metastatic recurrent lung cancer, on carbo/alimta/pembrolizumab, last dose 02/11/20 admitted with renal failure, anemia. CT - R renal mass suspicious for neoplasm. Stable per primary treating team COVID testing negative Anemia multifactorial, including--- myelosuppression, chronic disease. No obvious bleeding. Possible hemolysis - Jorge + undetectable haptoglobin nl/LDH--300s. Monitor and transfuse as necessary
--- NOTE | 2020-03-20 12:43 | DS ---
Physical Examination Vital Signs: Vital Signs Temperature 98.7 F 03/20/20 10:00 Pulse Rate 68 03/20/20 10:00 Respiratory Rate 16 03/20/20 10:00 Blood Pressure 130/64 03/20/20 10:00 O2 Sat by Pulse Oximetry (%) 100 03/20/20 10:00 Labs: CBC, BMP 03/20/20 05:25 03/18/20 07:30 Discharge Summary Problems reviewed: Yes Reason For Visit: MALIGNANT NEOPLASM OF LUNG AMS UREMIA Current Active Problems DONALDO (acute kidney injury) (Acute) Alcohol drinking problem (Acute) Anemia (Acute) COPD (chronic obstructive pulmonary disease) (Acute) COVID-19 ruled out (Acute) DVT (deep venous thrombosis) (Acute) Deaf (Acute) Elevated liver enzymes (Acute) Hyperkalemia (Acute) Lung cancer (Acute) Lung cancer, primary, with metastasis from lung to other site (Acute) Renal cancer (Acute) Seizures (Acute) Tobacco dependence due to cigarettes (Acute) Toxic metabolic encephalopathy (Acute) Transient alteration of awareness (Acute) Condition: Guarded - Instructions Referrals: Marquita Vergara MD [Primary Care Provider] - - Home Medications Comprehensive Discharge Medication List: Ambulatory Orders Ferrous Sulfate [Iron] 325 mg PO DAILY 03/02/20 Fluorometholone 0.1% Oph Oint 1 drop OD DAILY 03/02/20 Gabapentin 300 mg PO DAILY 03/02/20 Guaifenesin [Yane-Tussin] 100 mg PO DAILY 03/02/20 Latanoprost 0.005% Eye Drops [Xalatan 0.005% Eye Drops -] 1 drop OD DAILY 03/02/20 Morphine *Immediate Release* [Msir -] 30 mg PO Q4H 03/02/20 Ondansetron HCl [Zofran] 4 mg PO PRN 03/02/20 Phenobarbital 32.4 mg PO PRN 03/02/20 Ropinirole HCl [Requip Xl] 4 mg PO DAILY 03/02/20 Tamsulosin HCl [Flomax] 0.4 mg PO DAILY 03/02/20
[2020-03-20 13:55] VITALS: BP 145/70; PULSE 64
--- NOTE | 2020-03-20 14:58 | PN ---
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, Physician History of Present Illness: Pt seen and examined. He appears comfortable. - Current Medication List Current Medications: Active Medications Amino Acids (Prosource No Carb Liquid Pkt) 30 ml PO BID@0800,1730 [facility] Last Admin: 03/20/20 09:20 Dose: 30 ml Documented by: Apixaban (Eliquis -) 5 mg PO BID [facility] Last Admin: 03/20/20 09:20 Dose: 5 mg Documented by: Folic Acid (Folic Acid -) 1 mg PO DAILY [facility] Last Admin: 03/20/20 10:56 Dose: 1 mg Documented by: IV Flush (Kaykay-Cath Flush) 10 ml IVPUSH PRN PRN PRN Reason: maintain patency Last Admin: 03/20/20 06:04 Dose: 10 ml Documented by: Sodium Chloride (1/2 Normal Saline) 1,000 mls @ 42 mls/hr IV ASDIR [facility] Last Admin: 03/19/20 17:48 Dose: 42 mls/hr Documented by: Latanoprost (Xalatan 0.005% Eye Drops -) 1 drop OD DAILY [facility] Last Admin: 03/20/20 09:21 Dose: Not Given Documented by: Mirtazapine (Remeron -) 7.5 mg PO HS [facility] Last Admin: 03/19/20 21:55 Dose: 7.5 mg Documented by: Multivitamins/Minerals (Certavite-Antioxidant Liquid) 15 ml PO DAILY [facility] Last Admin: 03/20/20 09:21 Dose: 15 ml Documented by: Pantoprazole Sodium (Protonix -) 40 mg PO DAILY [facility] Last Admin: 03/20/20 09:20 Dose: 40 mg Documented by: Polyethylene Glycol (Miralax (For Daily Use) -) 17 gm PO BID [facility] Last Admin: 03/20/20 09:19 Dose: 17 gm Documented by: - Objective Vital Signs: Vital Signs Temperature 98.7 F 03/20/20 13:52 Pulse Rate 64 03/20/20 13:52 Respiratory Rate 20 03/20/20 13:52 Blood Pressure 145/70 03/20/20 13:52 O2 Sat by Pulse Oximetry (%) 99 03/20/20 13:52 Constitutional: Yes: Calm Eyes: Yes: Conjunctiva Clear HENT: Yes: Atraumatic Neck: Yes: Supple Cardiovascular: Yes: S1, S2 Respiratory: Yes: CTA Bilaterally Gastrointestinal: Yes: Soft Genitourinary: Yes: WNL Edema: No Neurological: Yes: Confusion Labs: CBC, BMP 03/20/20 05:25 03/18/20 07:30 INR, PTT INR 1.52 (0.83-1.09) H 03/20/20 05:25 Problem List - Problems (1) DONALDO (acute kidney injury) Code(s): N17.9 - ACUTE KIDNEY FAILURE, UNSPECIFIED (2) Hyperkalemia Code(s): E87.5 - HYPERKALEMIA Assessment/Plan Current Medications Generic Name Dose Route Start Last Admin Trade Name Freq PRN Reason Stop Dose Admin Amino Acids 30 ml 03/09/20 17:30 03/20/20 09:20 Prosource No Carb Liquid Pkt PO 30 ml BID@0800,1730 [facility] Administration Apixaban 5 mg 03/19/20 11:15 03/20/20 09:20 Eliquis - PO 5 mg BID [facility] Administration Folic Acid 1 mg 03/20/20 10:00 03/20/20 10:56 Folic Acid - PO 1 mg DAILY [facility] Administration IV Flush 10 ml 03/20/20 02:30 03/20/20 06:04 Kaykay-Cath Flush IVPUSH 10 ml PRN PRN Administration maintain patency Sodium Chloride 1,000 mls @ 42 mls/hr 03/15/20 14:30 03/19/20 17:48 1/2 Normal Saline IV 42 mls/hr [facility] Administration Latanoprost 1 drop 03/03/20 10:00 03/20/20 09:21 Xalatan 0.005% Eye Drops - OD Not Given DAILY [facility] Mirtazapine 7.5 mg 03/12/20 22:00 03/19/20 21:55 Remeron - PO 7.5 mg HS [facility] Administration Multivitamins/Minerals 15 ml 03/17/20 10:00 03/20/20 09:21 Certavite-Antioxidant Liquid PO 15 ml DAILY [facility] Administration Pantoprazole Sodium 40 mg 03/16/20 10:00 03/20/20 09:20 Protonix - PO 40 mg DAILY [facility] Administration Polyethylene Glycol 17 gm 03/15/20 22:00 03/20/20 09:19 Miralax (For Daily Use) - PO 17 gm BID [facility] Administration Impression 1. DONALDO 2. hyperkalemia 3. met acidosis 4. 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 epilepsy 7. dementia 8. anemia Plan - cont to monitor renal function - repeat labs in am - will need outpt follow up - avoid nsaids - avoid nephrotoxins
== END 2020-03-20 15:53 | DRG 686 ==
LOC: JER 13:06 → JERBED 16:50 → J6WEST-2 03-03 18:48 → J7W 03-04 09:17
PROVIDERS: ADMIT Internal Medicine; ATTEND Internal Medicine
PROC: 30233N1 Transfusion of Nonautologous Red Blood Cells into Peripheral Vein, Percutaneous Approach (ICD-10-PCS; principal; 2020-03-13)
DX: C79.01 Secondary malignant neoplasm of right kidney and renal pelvis (principal); G92 Toxic encephalopathy; R64 Cachexia; N17.9 Acute kidney failure, unspecified; C34.90 Malignant neoplasm of unspecified part of unspecified bronchus or lung; E87.2 Acidosis; I82.621 Acute embolism and thrombosis of deep veins of right upper extremity; D61.818 Other pancytopenia; M62.82 Rhabdomyolysis; E87.0 Hyperosmolality and hypernatremia; J44.9 Chronic obstructive pulmonary disease, unspecified; F03.90 Unspecified dementia, unspecified severity, without behavioral disturbance, psychotic disturbance, mood disturbance, and anxiety; D64.9 Anemia, unspecified; G62.9 Polyneuropathy, unspecified; R62.7 Adult failure to thrive; G40.909 Epilepsy, unspecified, not intractable, without status epilepticus; E87.5 Hyperkalemia; R13.10 Dysphagia, unspecified; E86.0 Dehydration; K59.00 Constipation, unspecified; E83.42 Hypomagnesemia
CPT/HCPCS: 36415; 36430; 36511; 70450-TC; 71045-TC-FY; 71250-TC; 74176-TC; 74230-TC-FY; 80048; 80053; 81003; 82105; 82272; 82436; 82550; 82553; 82565; 82607; 82728; 82747; 82803; 82962; 83010; 83516; 83540; 83550; 83605; 83615; 83735; 84133; 84300; 84439; 84443; 84484; 85014; 85025; 85027; 85044; 85610; 85730; 86038; 86301; 86704; 86706; 86707; 86708; 86709; 86803; 86850; 86880; 86900; 86901; 86922; 87040; 87086; 87340; 92611-GN; 93005; 93010; 93970-TC; 97116-GP; 97161-GP; 99285-25; J1644; P9038; P9058; U0003

== ENCOUNTER 2020-04-05 06:25 | Inpatient (IN) | payer OTHER ==
[2020-04-05 06:42] VITALS: BMI 20.3
[2020-04-05] MEDS ORDERED: SODIUM CHLORIDE 2,041 ML IV ONE (07:10)
--- NOTE | 2020-04-05 07:52 | PDOC ---
History of Present Illness - General Chief Complaint: Injury Stated Complaint: FALL Time Seen by Provider: 04/05/20 07:18 History Source: [facility] Records Exam Limitations: Clinical Condition - History of Present Illness Initial Comments: 04/05/20 07:51 69M PMH Lung ca, chronic pain, epilepsy, HTN, H.pylori, anemia, BPH, COPD, RUE DVT on eliquis, dementia BIBEMS from [facility] after fall w// b/l orbital ridge swelling. Limited hx - Pt awake nonverbal with limited ability to follow commands. Per [place] paperwork - patient usual mental status is alert, oriented, and follows directions, non-ambulatory. NKDA. Per Dr. Saba's discussion w/ HCP - Full code Past History - Medical History Allergies/Adverse Reactions: Allergies Allergy/AdvReac Type Severity Reaction Status Date / Time No Known Allergies Allergy Verified 04/05/20 06:41 Home Medications: Ambulatory Orders Ferrous Sulfate [Iron] 325 mg PO DAILY 03/02/20 Fluorometholone 0.1% Oph Oint 1 drop OD DAILY 03/02/20 Guaifenesin [Yane-Tussin] 100 mg PO DAILY 03/02/20 Latanoprost 0.005% Eye Drops [Xalatan 0.005% Eye Drops -] 1 drop OD DAILY 03/02/20 Ondansetron HCl [Zofran] 4 mg PO PRN 03/02/20 Phenobarbital 32.4 mg PO PRN 03/02/20 Tamsulosin HCl [Flomax] 0.4 mg PO DAILY 03/02/20 Amino Acids/Protein Hydrolys [Prosource No Carb Liquid Pkt] 30 ml PO BID@0800,1730 #60 packet 03/20/20 Apixaban [Eliquis -] 5 mg PO BID #60 tablet 03/20/20 Mirtazapine [Remeron -] 7.5 mg PO HS #30 tablet 03/20/20 Pantoprazole Sodium [Protonix -] 40 mg PO DAILY #30 tablet.ec 03/20/20 Polyethylene Glycol 3350 [Miralax 119 gm Btl -] 17 gm PO BID #1 bottle 03/20/20 Anemia: Yes Dementia: Yes Seizures: Yes - Psycho-Social/Smoking History Smoking History: Unknown if ever smoked Have you smoked in the past 12 months: No Information on smoking cessation initiated: No Review of Systems - Review of Systems Able to Perform ROS?: No (nonverbal, clinical acute) *Physical Exam - Vital Signs Last Vital Signs Temp Pulse Resp BP Pulse Ox 96.9 F L 84 24 H 121/66 97 04/05/20 06:36 04/05/20 06:36 04/05/20 06:36 04/05/20 06:36 04/05/20 06:36 - Physical Exam 04/05/20 18:13 GEN: mild distress, uncomfortable appearing HEENT: Hematomas of b/l orbital ridges. [place] with upper dentures. CV: S1/S2, tachy LUNG: CTAB, no wheezes, crackles GI: Soft, ndnt, +BS, no guarding, no rebound. No masses. MSK: RLE held at external rotation and slight abduction PSYCH: nonverbal, minimally cooperative. NEURO: awake Procedures - Intubation Time of Intubation: 08:35 Intubation Method: orotracheal Blade used: Mac Tube Size (Fr): 8.0 Medications: Etomidate, Rocuronium Tube position confirmed by: Direct visualization, CO2 detector, Chest x-ray, Breath sounds Breath Sounds after Intubation: equal Intubation Complications: no complications Post Intubation Xray: Yes (pending) ED Treatment Course - LABORATORY CBC & Chemistry Diagram: 04/05/20 07:44 04/05/20 07:44 Medical Decision Making - Critical Care Time Total Critical Care Time (minutes): 50 Critical Care Statement: The care of this patient involved high complexity decision making to prevent further life threatening deterioration of the patient's condition and/or to evaluate & treat vital organ system(s) failure or risk of failure. - Medical Decision Making 04/05/20 09:09 69M BIBEMS from [place] after fall w/ head strike. Sepsis workup Hip XR w/ right femoral fracture on ED read, will f/u rads read Marie catheter inserted with 800cc drainage - initially straw colored then cloudy Pt experienced a witnessed self limited generalized seizure that terminated after approximately 30 seconds. No return to pre-seizure baseline. Keppra and ativan ordered. Pt intubated for airway protection - RSI w/ etomidate and rocuronium, see procedure note. Will provide fentanyl drip for sedation and pain. OGT inserted. F/u CXR. Labs reviewed Will broadly cover for neutropenia - vanc + cefepime Plt low H/H low xfuse 2U PRBC, PLT, FFP BP has been fluid responsive 04/05/20 10:23 rpt lopez-CT obtained, f/u results 04/05/20 10:46 at bedside recommending 04/05/20 11:[address] Peraza, based on wet read appears to be metastatic bone lesions of b/l femurs; non-operative at this moment given patient condition. Note appreciated. f/u radiology reads admit to ICU 04/05/20 12:35 labs, imaging reviewed admitted to ICU provided update to sister Dai [facility] Discharge - Discharge Information Problems reviewed: Yes Clinical Impression/Diagnosis: Transient alteration of awareness, Pancytopenia Lung cancer Qualifiers: Laterality: unspecified laterality Lung location: unspecified part of lung Qualified Code(s): C34.90 - Malignant neoplasm of unspecified part of un specified bronchus or lung Fall Qualifiers: Encounter type: initial encounter Qualified Code(s): W19.XXXA - Unspecified fal l, initial encounter Closed right hip fracture Qualifiers: Encounter type: initial encounter Qualified Code(s): S72.001A - Fracture of unspecified part of neck of right femur, initial encounter for closed fracture Condition: Guarded - Follow up/Referral - Patient Discharge Instructions - Post Discharge Activity
--- NOTE | 2020-04-05 07:58 | PDOC ---
Attending Attestation - Resident Resident Name: Eleazar Devries - ED Attending Attestation I have performed the following: I have examined & evaluated the patient, The case was reviewed & discussed with the resident, I agree w/resident's findings & plan - HPI HPI: 04/05/20 07:52 69-year-old male with history of lung CA, chronic renal insufficiency with recent admission for acute renal injury discharged on 03/20, sent from [facility] after found on floor this morning. Patient is nonverbal, arrives with ecchymosis and swelling around both eyes, tachypnea, tachycardia, limited ability to follow commands but moving all extremities with eyes open. - Physicial Exam PE: 04/05/20 07:54 Afebrile rectally, tachycardia, tachypnea, normal blood pressure, O2 sat difficult to obtain but appears to have been satting in the 80s on room air Alert, nonconversant Bilateral eyelid swelling and ecchymosis Dry mucosa Neck is supple Heart is regular tachycardia, lungs without notable wheezing Abdomen is soft No extremity deformity, left heel ulceration which is consistent with chronic wound Moving all extremities equally - Critical Care Time Total Critical Care Time: 50 Critical Care Statement: The care of this patient involved high complexity decision making to prevent further life threatening deterioration of the patient's condition and/or to evaluate & treat vital organ system(s) failure or risk of failure. - Medical Decision Making 04/05/20 07:55 69-year-old male with history of lung CA and recent acute on chronic renal failure presents after found on floor at [facility], traumatic findings to face, tachycardia and tachypnea. Differential is broad, question primary fall versus metabolic (recurrence of GABY with acidosis) versus infectious process/sepsis. trauma workup initiated with ct head/face/cspine sepsis protocol initiated ABG, NRB, trial nebs given COPD changes on prior CT chest IV fluids, abx per findings d/w family, full code. may require intubation for AMS/tachypnea/hypoxia admission, likely ICU 04/05/20 09:05 suspicious R hip fracture on pelvis xray pt remained altered with tachypnea. subsequently had GTC seizure (h/o seizure disorder) resolved spontaneously within 30 seconds then with post-ictal agonal breathing. This event was followed by SVT with maintained BP. Decision to intubate for airway protection, RSI without difficulty, tolerated well. F/U trauma CT imaging, remaining labs, on vent pending post-intubation CXR/ABG and sedation ICU consulted 04/05/20 10:33 severe pancytopenia with neutropenia. covered empirically with abx, transfuce prbc/ffp/platelets CTs with artifact, will repeat GABY, K 5.5. Elevated lactate pending ICU consult Heart Score/ECG Review #1 ECG reviewed & interpreted by me at: 08:23 General ECG Interpretation: Sinus Rhythm ((artifact) present), Normal Rate (tachy at 111), Normal Intervals (qtc 416), No acute ischemic changes Discharge - Discharge Information Problems reviewed: Yes Clinical Impression/Diagnosis: Transient alteration of awareness, Pancytopenia Lung cancer Qualifiers: Laterality: unspecified laterality Lung location: unspecified part of lung Qualified Code(s): C34.90 - Malignant neoplasm of unspecified part of unspecified bronchus or lung Fall Qualifiers: Encounter type: initial encounter Qualified Code(s): W19.XXXA - Unspecified fall, initial encounter Closed right hip fracture Qualifiers: Encounter type: initial encounter Qualified Code(s): S72.001A - Fracture of unspecified part of neck of right femur, initial encounter for closed fracture Condition: Guarded - Follow up/Referral - Patient Discharge Instructions - Post Discharge Activity
[2020-04-05 08:06] LABS: ARTERIAL BLOOD GAS PCO2 < 16.70 mmHg (35-45); ARTERIAL BLOOD GAS PO2 230.7 mmHg (80-100); ARTERIAL BLOOD GAS pH 7.404 (7.350-7.450)
[2020-04-05 08:10] LABS: HEMATOCRIT 19.1 % (35.4-49); MCH 32.2 pg (25.7-33.7); MCHC 33.5 g/dl (32.0-35.9); MEAN CELL VOLUME 96.1 fl (80-96); MEAN PLT VOLUME 8.8 fl (7.5-11.1); RBC 1.99 M/mm3 (4.00-5.60); RDW 17.6 % (11.9-15.9)
[2020-04-05 08:12] LABS: ALLENS TEST POSITIVE
[2020-04-05 08:15] LABS: INR 2.4 (0.83-1.09); PROTHROMBIN TIME (PATIENT) 28.6 SEC (9.7-13.0)
[2020-04-05 08:27] LABS: ACTIVATED PTT 33.4 SECONDS (25.2-36.5)
[2020-04-05 08:32] LABS: WHITE BLOOD COUNT 0.6 K/mm3 (4.0-10.0)
[2020-04-05 08:33] LABS: HEMOGLOBIN 6.4 GM/dL (11.7-16.9); PLATELET COUNT 3 K/MM3 (134-434)
[2020-04-05] MEDS ORDERED: LORazepam 2 MG/ML SDV VIAL ONE (08:34)
[2020-04-05] MEDS ORDERED: RAPID SEQUENCE INTUBATION KIT NR ONE ×2 (08:38→08:41)
[2020-04-05] MEDS ORDERED: CEFEPIME HCL/D5W 2 GM/50 ML BAG IVPB ONE (08:57)
[2020-04-05] MEDS ORDERED: VANCOMYCIN 1,000 MG in DEXTROSE 5%-WATER - 250 ML IVPB ONE (08:57)
[2020-04-05] MEDS ORDERED: ROCURONIUM BROMIDE 50 MG/5 ML VIAL IV ONE (08:58)
[2020-04-05] MEDS ORDERED: ETOMIDATE 40 MG/20 ML VIAL IVPUSH ONE (08:58)
[2020-04-05] MEDS ORDERED: levETIRAcetam 500 MG/5 ML INJECTION VIAL IVPB ONE ×2 (08:58→11:07)
[2020-04-05 09:04] LABS: BILIRUBIN,DIRECT 1.7 mg/dL (0.0-0.2)
[2020-04-05] MEDS ORDERED: FENTANYL IVPB 500 MCG/100 ML BAG IVPB SCH (09:15)
[2020-04-05 09:17] LABS: ALBUMIN 2.6 g/dl (3.4-5.0); BILIRUBIN,TOTAL 2.2 mg/dL (0.2-1); BLOOD UREA NITROGEN 88.2 mg/dL (7-18); CALCIUM 9.1 mg/dL (8.5-10.1); CREATININE 6.7 mg/dL (0.55-1.3); POTASSIUM 5.5 mmol/L (3.5-5.1); TOT PROT 7.3 g/dl (6.4-8.2)
[2020-04-05 09:22] LABS: BASO % 0.4 % (0-2.0); EOS % 0.4 % (0-4.5); LYMPH % 73.5 % (8-40); MONO % 1.7 % (3.8-10.2)
[2020-04-05 09:34] LABS: MACROCYTOSIS 0; OVALOCYTE 1+; PLATELET ESTIMATE DECREASED
[2020-04-05] MEDS ORDERED: SODIUM CHLORIDE 0.9% 500 ML INFUS.BAG IV ONE (09:43)
[2020-04-05] MEDS ORDERED: FENTANYL IVPB 500 MCG/100 ML BAG IVPB ONE (10:31)
[2020-04-05 10:49] LABS: ANISOCYTOSIS 1+
--- NOTE | 2020-04-05 10:54 | EKG ---
Test Reason : Blood Pressure : / mmHG Vent. Rate : 111 BPM Atrial Rate : 111 BPM P-R Int : 134 ms QRS Dur : 068 ms QT Int : 306 ms P-R-T Axes : 064 055 066 degrees QTc Int : 416 ms POOR DATA QUALITY, INTERPRETATION MAY BE ADVERSELY AFFECTED SINUS TACHYCARDIA WITH OCCASIONAL MODERATE VOLTAGE CRITERIA FOR LVH, MAY BE NORMAL VARIANT BORDERLINE ECG WHEN COMPARED WITH ECG OF 02-MAR-2020 13:37, ARE NOW VENT. RATE HAS INCREASED BY 40 BPM Repeat EC Confirmed by Richard Saldivar ([id number]) on 04/05/2020 10:54:31 AM Referred By: Confirmed By:Richard Saldivar
--- NOTE | 2020-04-05 11:01 | CONSULT ---
Consult - text type - Consultation Consultation Note: ORTHOPEDIC SURGERY CONSULTATION NOTE Department of Orthopedic Surgery HISTORY OF PRESENT ILLNESS Mr. Dupont is a 69 year old male with PMH of Lung ca, chronic pain, epilepsy, HTN, H.pylori, anemia, BPH, COPD, RUE DVT on eliquis, dementia BIBEMS from [facility] after fall w/b/l orbital ridge swelling. The orthopedic service was consulted for evaluation of his right hip. The injury occurred after a fall at [facility]. The patient is currently intubated in the ER, but notes in his chart indicate he is non-ambulatory. REVIEW OF SYMPTOMS A twelve-point review of systems was performed and was negative except as noted in HPI. PHYSICAL EXAM Constitutional: Intubated, non-responsive. Exam limited secondary to intubation. Right Lower Extremity: Skin warm, dry, and intact; no lesions, rashes or ulcers noted. Muscle mass equal and symmetric to contralateral side. No atrophy noted. No masses or effusions noted. No significant calf/ankle edema. Cap refill brisk. Exam limited secondary to intubation. Active Problems Problem Status Category Onset Fall Acute Medical Lung cancer Acute Medical Pancytopenia Acute Medical Transient alteration of awareness Acute Medical Past Medical History [employer] Dementia,Seizure Cardio/Vascular Deep Vein Thrombosis Pulmonary Cancer,COPD Gastrointestinal Constipation,Pancreatitis Hepatobiliary Other Renal/ Renal Inusuff,BPH,Cancer Heme/Onc Anemia Infectious Disease Other Psych Depression Rheumatology Other Additional Medical History Glaucoma Past Surgical History Past Surgical History Thoracotomy Social History Smoking history Unknown if ever smoked Hx Alcohol Use Yes: modestly Usual Living Arrangement Assisted ADL Support Services 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 History of Recent Travel No Allergies Allergy/AdvReac Type Severity Reaction Status Date / Time No Known Allergies Allergy Verified 04/05/20 06:41 Active Medications Generic Name Dose Route Start Last Admin Trade Name Freq PRN Reason Stop Dose Admin Fentanyl 500 mcg in 100 mls @ 13.608 mls/hr 04/05/20 09:15 04/05/20 10:32 Sublimaze Ivpb IVPB 1 mcg/kg/hr TITR PHILIPP 13.608 mls/hr Administration 1 MCG/KG/HR Vital Signs (last) Temp Pulse Resp BP Pulse Ox 98.1 F 100 H 22 H 117/58 L 100 04/05/20 08:27 04/05/20 10:20 04/05/20 10:17 04/05/20 10:20 04/05/20 10:20 Intake and Output 04/03/20 04/04/20 04/05/20 23:59 23:59 23:59 Other: Weight 150 lb Height 6 ft Body Mass Index (BMI) 20.3 Weight Measurement Method Estimated by Staff Laboratory 04/05/20 07:44 04/05/20 07:44 PT with INR 28.60 SEC (9.7-13.0) H 04/05/20 07:44 PTT (Actin FS) 33.4 SECONDS (25.2-36.5) 04/05/20 07:44 IMAGING I personally reviewed all radiographs, CT, and other imaging. They demonstrate no hip fracture, however there are bilateral femoral neck lesions, suspicious of cyst formation, versus metastatic sequelae based on his history. There is significant arthrosis of bilateral hips, but no acute fractures or dislocations seen. ASSESSMENT AND PLAN Mr. Dupont is a 69 year old male presenting status post fall, with bilateral femoral neck lesions, currently intubated in the ER. We have reviewed the imaging and clinical findings in detail, as well as their potential implications. After appropriate informed discussion, we agreed on the following plan: 1. Pain control 2. DVT ppx 3. NWB b/l LE 4. Continue medical management. 5. If his condition improves, would consider an MRI of his pelvis to further evaluate his bilateral femoral lesions All questions were answered. Thank you for involving our team in the care of this patient.
[2020-04-05] MEDS ORDERED: VANCOMYCIN 1 GRAM (PRE-DOCKED) 1,000 MG/250 ML BAG IVPB ONE (11:08)
--- NOTE | 2020-04-05 11:52 | CONSULT ---
Consult Consult Specialty:: Nephrology Reason for Consultation:: DONALDO - History of Present Illness Chief Complaint: sent in after being found down History of Present Illness: Pt is a 69 year old male with pmhx of epilepsy, htn, h. pylori, anemia, bph, copd, ckd, dvt, renal mass who was sent in from [facility] after being found down for an unknown period of time. I was called to evaluate him. He was found to be in renal failure with severe lactic acidosis. He is intubated and unable to give history. He was found to be pancytopenic as well. He has swelling over his eyes. He is also bleeding from his ng tube and reyes. 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 IPMN) Hepatobiliary: Yes: Other (dilated CBD 12mm and pancreatyic ducts 4mm ) Renal/: Yes: Renal Inusuff, BPH, Cancer (right malignant apperaing renal mass) Infectious Disease: Yes: Other (COVID 19 at [facility]) Psych: Yes: Depression Rheumatology: Yes: Other (osteoarthritis) Additional Medical History: Glaucoma - Past Surgical History Past Surgical History: Yes: Thoracotomy - Alcohol/Substance Use Hx Alcohol Use: Yes (modestly) - Smoking History Smoking history: Unknown if ever smoked Have you smoked in the past 12 months: No - Social History Usual Living Arrangement: Senior Living ADL: Support Services 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 History of Recent Travel: No Home Medications - Allergies Allergies/Adverse Reactions: Allergies Allergy/AdvReac Type Severity Reaction Status Date / Time No Known Allergies Allergy Verified 04/05/20 06:41 - Home Medications Home Medications: Ambulatory Orders Ferrous Sulfate [Iron] 325 mg PO DAILY 03/02/20 Fluorometholone 0.1% Oph Oint 1 drop OD DAILY 03/02/20 Guaifenesin [Yane-Tussin] 100 mg PO DAILY 03/02/20 Latanoprost 0.005% Eye Drops [Xalatan 0.005% Eye Drops -] 1 drop OD DAILY 03/02/20 Ondansetron HCl [Zofran] 4 mg PO PRN 03/02/20 Phenobarbital 32.4 mg PO PRN 03/02/20 Tamsulosin HCl [Flomax] 0.4 mg PO DAILY 03/02/20 Amino Acids/Protein Hydrolys [Prosource No Carb Liquid Pkt] 30 ml PO BID@0800,1730 #60 packet 03/20/20 Apixaban [Eliquis -] 5 mg PO BID #60 tablet 03/20/20 Mirtazapine [Remeron -] 7.5 mg PO HS #30 tablet 03/20/20 Pantoprazole Sodium [Protonix -] 40 mg PO DAILY #30 tablet.ec 03/20/20 Polyethylene Glycol 3350 [Miralax 119 gm Btl -] 17 gm PO BID #1 bottle 03/20/20 Family Medical History Family History: Unable to Obtain Review of Systems Unable to obtain ROS, reason: lethargic Physical Exam Vital Signs: Vital Signs Temperature 92.5 F L 04/05/20 11:22 Pulse Rate 91 H 04/05/20 11:22 Respiratory Rate 12 04/05/20 11:22 Blood Pressure 112/57 L 04/05/20 11:22 O2 Sat by Pulse Oximetry (%) 100 04/05/20 11:22 Constitutional: Yes: Calm HENT: Yes: Other (facial trauma) Cardiovascular: Yes: S1, S2 Respiratory: Yes: Mechanically Ventilated Gastrointestinal: Yes: Soft Renal/: Yes: Reyes Present Musculoskeletal: Yes: Muscle Weakness Edema: No Integumentary: Yes: Bruising Neurological: Yes: Lethargy Labs: CBC, BMP 04/05/20 07:44 04/05/20 07:44 Laboratory Tests 04/05/20 04/05/20 04/05/20 07:44 07:44 07:44 WBC 0.6 L* Hgb 6.4 L* Plt Count 3 L* D INR 2.40 H Sodium 136 Potassium 5.5 H Chloride 102 Carbon Dioxide 8 L Lactic Acid Ferritin 78472.7 H Creatine Kinase 1496 H COVID-19 (EFRAIN) 04/05/20 04/05/20 07:44 07:50 WBC Hgb Plt Count INR Sodium Potassium Chloride Carbon Dioxide Lactic Acid > 15.0 H* Ferritin Creatine Kinase COVID-19 (EFRAIN) Pending Imaging - Results Chest X-ray: Report Reviewed Cat Scan: Report Reviewed Problem List - Problems (1) Fall Code(s): W19.XXXA - UNSPECIFIED FALL, INITIAL ENCOUNTER Qualifiers: Encounter type: initial encounter Qualified Code(s): W19.XXXA - Unspecified fall, initial encounter (2) Lung cancer Code(s): C34.90 - MALIGNANT NEOPLASM OF UNSP PART OF UNSP BRONCHUS OR LUNG Qualifiers: Laterality: unspecified laterality Lung location: unspecified part of lung Qualified Code(s): C34.90 - Malignant neoplasm of unspecified part of unspecified bronchus or lung (3) Pancytopenia Code(s): D61.818 - OTHER PANCYTOPENIA (4) DONALDO (acute kidney injury) Code(s): N17.9 - ACUTE KIDNEY FAILURE, UNSPECIFIED Assessment/Plan Current Medications Generic Name Dose Route Start Last Admin Trade Name Freq PRN Reason Stop Dose Admin Fentanyl 500 mcg in 100 mls @ 13.608 mls/hr 04/05/20 09:15 04/05/20 10:32 Sublimaze Ivpb IVPB 1 mcg/kg/hr TITR PHILIPP 13.608 mls/hr Administration 1 MCG/KG/HR Impression 1. DONALDO 2. hyperkalemia 3. met acidosis 4. 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 epilepsy 7. dementia 8. anemia 9. s/p fall 10. rhabdo 11. pancytopenia 12. shock 13. hypotension Plan - start pt on bicarb drip - give an amp of bicarb now - monitor urine output - cont to trend renal function and lytes - repeat cmp in ICU - called and spoke to ICU team - cont vent support - pt is too unstable for dialysis therapy at this point - avoid nsaids - avoid nephrotoxins
[2020-04-05] MEDS ORDERED: DOPAMINE 400 MG/D5W - 400,000 MCG/250 ML INFUS.BAG IVPB ONE (12:20)
[2020-04-05] MEDS ORDERED: PHYTONADIONE 10 MG/1 ML AMP IVPB ONE (12:29)
[2020-04-05] MEDS ORDERED: SODIUM CHLORIDE 1,000 ML IV STA (12:32)
[2020-04-05] MEDS ORDERED: SODIUM BICARBONATE 8.4% 50 MEQ/50 ML DISP.SYRIN IVPUSH ONE ×2 (12:45→16:08)
[2020-04-05] MEDS ORDERED: NOREPINEPHRINE BITARTRATE 8,000 MCG/500 ML BAG IVPB SCH (13:00)
--- NOTE | 2020-04-05 13:47 | CONSULT ---
Consultation: REQUESTING PROVIDER: Dr. Hutchison CONSULT REQUEST: ICU monitoring. HISTORY OF PRESENT ILLNESS: 69 yo male with PMH of lung ca (last chemotherapy was 03/24) epilepsy, HTN, H.pylori, anemia, BPH, COPD, chronic renal insufficiency, RUE DVT on eliquis, dementia was brought in from [facility] after he was found down for an unknown period of time. Upon arrival to the ED patient seized and was subsequently intubated for airway protection. Vitals : T 92.8, MAPS in the 50's, HR 88, 100% vented - notable labs: WBC 0.6 platelets 3 Hgb 6.32 K 5.5 Cr 6.7 lactic acid >15 ferritin [id number]- INR 2.30 CRP 25- patient received vanc/cefepime , 1gram keppra 2 units PRBCS 2 units platelets 2 units FFP 10 vit K 3.5L fluid started on bicarb gtt and subsequently required pressors. CT head- small subarachnoid hemorrhage with small mild cortical bleeds; covid test pending REVIEW OF SYSTEMS: UNABLE TO ASSESS PATIENT IS INTUBATED CONSTITUTIONAL: Absent: fever, chills, diaphoresis, generalized weakness, malaise, loss of appetite, weight change HEENT: Absent: rhinorrhea, nasal congestion, throat pain, throat swelling, difficulty swallowing, mouth swelling, ear pain, eye pain, visual changes CARDIOVASCULAR: Absent: chest pain, syncope, palpitations, irregular heart rate, lightheadedness, peripheral edema RESPIRATORY: Absent: cough, shortness of breath, dyspnea with exertion, orthopnea, wheezing, stridor, hemoptysis GASTROINTESTINAL: Absent: abdominal pain, abdominal distension, nausea, vomiting, diarrhea, constipation, melena, hematochezia GENITOURINARY: Absent: dysuria, frequency, urgency, hesitancy, hematuria, flank pain, genital pain MUSCULOSKELETAL: Absent: myalgia, arthralgia, joint swelling, back pain, neck pain SKIN: Absent: rash, itching, pallor HEMATOLOGIC/IMMUNOLOGIC: Absent: easy bleeding, easy bruising, lymphadenopathy, frequent infections ENDOCRINE: Absent: unexplained weight gain, unexplained weight loss, heat intolerance, cold intolerance NEUROLOGIC: Absent: headache, focal weakness or paresthesias, dizziness, unsteady gait, s eizure, mental status changes, bladder or bowel incontinence PSYCHIATRIC: Absent: anxiety, depression, suicidal or homicidal ideation, hallucinations. PHYSICAL EXAMINATION Vital Signs - 24 hr 04/05/20 04/05/20 04/05/20 06:36 07:15 08:27 Temperature 96.9 F L 98.1 F Pulse Rate 84 Pulse Rate [ 118 H Left] Pulse Rate [ 91 H Right Radial] Respiratory 24 H 16 26 H Rate Blood Pressure 121/66 Blood Pressure 153/78 154/94 [Left Arm] O2 Sat by Pulse 97 87 L 98 Oximetry (%) 04/05/20 04/05/20 04/05/20 08:36 08:39 08:41 Temperature Pulse Rate Pulse Rate [ Left] Pulse Rate [ 100 H 93 H 94 H Right Radial] Respiratory Rate Blood Pressure Blood Pressure 123/62 61/36 L 50/29 L [Left Arm] O2 Sat by Pulse Oximetry (%) 04/05/20 04/05/20 04/05/20 08:45 08:47 08:50 Temperature Pulse Rate Pulse Rate [ Left] Pulse Rate [ 96 H 98 H 95 H Right Radial] Respiratory Rate Blood Pressure Blood Pressure 47/30 L 49/31 L 54/37 L [Left Arm] O2 Sat by Pulse Oximetry (%) 04/05/20 04/05/20 04/05/20 08:55 09:02 09:11 Temperature Pulse Rate Pulse Rate [ Left] Pulse Rate [ 98 H 99 H Right Radial] Respiratory 12 Rate Blood Pressure Blood Pressure 74/41 L 78/43 L [Left Arm] O2 Sat by Pulse Oximetry (%) 04/05/20 04/05/20 04/05/20 09:59 10:03 10:17 Temperature Pulse Rate Pulse Rate [ 98 H 107 H 101 H Left] Pulse Rate [ Right Radial] Respiratory 22 H Rate Blood Pressure Blood Pressure 99/58 L 102/61 102/61 [Left Arm] O2 Sat by Pulse 100 100 100 Oximetry (%) 04/05/20 04/05/20 04/05/20 10:20 11:01 11:20 Temperature 92.9 F L Pulse Rate 91 H Pulse Rate [ 100 H 94 H Left] Pulse Rate [ Right Radial] Respiratory 24 H 12 14 Rate Blood Pressure 112/57 L Blood Pressure 107/58 L 116/56 L [Left Arm] O2 Sat by Pulse 100 100 100 Oximetry (%) 04/05/20 04/05/20 04/05/20 11:22 11:56 12:16 Temperature 92.5 F L 93.1 F L 93.3 F L Pulse Rate 91 H Pulse Rate [ 74 Left] Pulse Rate [ Right Radial] Respiratory 12 14 Rate Blood Pressure 112/57 L Blood Pressure 94/45 L [Left Arm] O2 Sat by Pulse 100 100 Oximetry (%) 04/05/20 12:47 Temperature 93.6 F L Pulse Rate Pulse Rate [ 89 Left] Pulse Rate [ Right Radial] Respiratory 14 Rate Blood Pressure Blood Pressure 90/47 L [Left Arm] O2 Sat by Pulse Oximetry (%) GENERAL: intubated/sedated HEAD: Normal with no signs of trauma. EYES: eyelid swelling/hematomas B/L; right subconjunctival hemmorrhage EARS, NOSE, THROAT: dry mucous membranes; dry blood around mouth NECK: no JVD; no lymphadenopathy LUNGS: distant breath sounds; no rales or wheezing. HEART: tachycrdaic s1 s2; no murmurs/rubs/gallops. ABDOMEN: Soft, NT ND +BS in all 4 quadrants MUSCULOSKELETAL: Normal range of motion at all joints. No bony deformities or tenderness. No CVA tenderness. EXTREMITIES: warm; well-perfused no clubbing/cyanosis or edema NEUROLOGICAL: unable to assess SKIN: Warm, dry, normal turgor, no rashes or lesions noted. Laboratory Results - last 24 hr 04/05/20 04/05/20 04/05/20 07:44 07:44 07:44 WBC 0.6 L* Corrected WBC (auto) Shipping And Receiving Specialist RBC 1.99 L Hgb 6.4 L* Hct 19.1 L D MCV 96.1 H MCH 32.2 MCHC 33.5 RDW 17.6 H Plt Count 3 L* D MPV 8.8 Absolute Neuts (auto) 0.1 L Total Counted Neutrophils % 24.0 L D Neutrophils % (Manual) 8.2 L D Band Neutrophils % 0.0 Lymphocytes % 73.5 H D Lymphocytes % (Manual) 88.5 H* D Monocytes % 1.7 L D Monocytes % (Manual) 3 L D Eosinophils % 0.4 D Eosinophils % (Manual) 0.0 Basophils % 0.4 Basophils % (Manual) 0.0 Myelocytes % (Man) 0 Promyelocytes % (Man) 0 Blast Cells % (Manual) 0 Nucleated RBC % 0 Metamyelocytes 0 Differential Comment Hypersegmented Neuts Plasma Cells Smudge Cells Other Cell Type Hypochromia 0 Toxic Granulation Dohle Bodies Mann Rods Platelet Estimate Decreased Platelet Comment [employer] And Receiving Specialist Polychromasia 0 Poikilocytosis 1+ Basophilic Stippling Anisocytosis 1+ Microcytosis 0 Macrocytosis 0 Spherocytes Siderocytes Sickle Cells Target Cells Tear Drop Cells Ovalocytes 1+ Stomatocytes Helmet Cells [place] Bodies [place] Rings Joel Cells 2+ Acanthocytes (Spur) Rouleaux Fragmented RBCs Schistocytes PT with INR 28.60 H INR 2.40 H PTT (Actin FS) 33.4 Anticoagulation Therapy Puncture Site Patient Temperature ABG pH ABG pCO2 ABG pO2 ABG HCO3 ABG O2 Sat (Measured) ABG O2 Content ABG Base Excess [place] Test Patient On Oxygen O2 Delivery Device Oxygen Flow Rate Vent Mode Vent Rate Mechanical Rate PEEP Pressure Support Vent Sodium Potassium Chloride Carbon Dioxide Anion Gap BUN Creatinine Est GFR (CKD-EPI)AfAm Est GFR (CKD-EPI)NonAf Random Glucose Lactic Acid Calcium Ferritin Total Bilirubin Direct Bilirubin AST ALT Alkaline Phosphatase LD Total Creatine Kinase Creatine Kinase Index CK-MB (CK-2) Troponin I 0.11 H C-Reactive Protein Total Protein Albumin Blood Type Antibody Screen Crossmatch 04/05/20 04/05/20 04/05/20 07:44 07:44 07:44 WBC Corrected WBC (auto) RBC Hgb Hct MCV MCH MCHC RDW Plt Count MPV Absolute Neuts (auto) Total Counted Neutrophils % Neutrophils % (Manual) Band Neutrophils % Lymphocytes % Lymphocytes % (Manual) Monocytes % Monocytes % (Manual) Eosinophils % Eosinophils % (Manual) Basophils % Basophils % (Manual) Myelocytes % (Man) Promyelocytes % (Man) Blast Cells % (Manual) Nucleated RBC % Metamyelocytes Differential Comment Hypersegmented Neuts Plasma Cells Smudge Cells Other Cell Type Hypochromia Toxic Granulation Dohle Bodies Mann Rods Platelet Estimate Platelet Comment Polychromasia Poikilocytosis Basophilic Stippling Anisocytosis Microcytosis Macrocytosis Spherocytes Siderocytes Sickle Cells Target Cells Tear Drop Cells Ovalocytes Stomatocytes Helmet Cells [place] Bodies [place] Rings [place] Cells Acanthocytes (Spur) Rouleaux Fragmented RBCs Schistocytes PT with INR INR PTT (Actin FS) Anticoagulation Therapy Puncture Site Patient Temperature ABG pH ABG pCO2 ABG pO2 ABG HCO3 ABG O2 Sat (Measured) ABG O2 Content ABG Base Excess Dante Test Patient On Oxygen O2 Delivery Device Oxygen Flow Rate Vent Mode Vent Rate Mechanical Rate PEEP Pressure Support Vent Sodium 136 Potassium 5.5 H Chloride 102 Carbon Dioxide 8 L Anion Gap 26 H BUN 88.2 H Creatinine 6.7 H Est GFR (CKD-EPI)AfAm 8.95 Est GFR (CKD-EPI)NonAf 7.72 Random Glucose 116 H Lactic Acid > 15.0 H* Calcium 9.1 Ferritin 57002.7 H Total Bilirubin 2.2 H Direct Bilirubin 1.7 H AST 301 H ALT 216 H Alkaline Phosphatase 52 LD Total 354 H Creatine Kinase 1496 H Creatine Kinase Index 0.3 CK-MB (CK-2) 5.8 H Troponin I C-Reactive Protein 25.5 H Total Protein 7.3 Albumin 2.6 L Blood Type O POSITIVE Antibody Screen Negative Crossmatch See Detail 04/05/20 04/05/20 04/05/20 07:44 07:44 07:44 WBC Corrected WBC (auto) RBC Hgb Hct MCV MCH MCHC RDW Plt Count MPV Absolute Neuts (auto) Total Counted Cancelled Neutrophils % Neutrophils % (Manual) Cancelled Band Neutrophils % Cancelled Lymphocytes % Lymphocytes % (Manual) Cancelled Monocytes % Monocytes % (Manual) Cancelled Eosinophils % Eosinophils % (Manual) Cancelled Basophils % Basophils % (Manual) Cancelled Myelocytes % (Man) Cancelled Promyelocytes % (Man) Cancelled Blast Cells % (Manual) Cancelled Nucleated RBC % Cancelled Metamyelocytes Cancelled Differential Comment Cancelled Hypersegmented Neuts Cancelled Plasma Cells Cancelled Smudge Cells Cancelled Other Cell Type Cancelled Hypochromia Cancelled Toxic Granulation Cancelled Dohle Bodies Cancelled Mann Rods Cancelled Platelet Estimate Cancelled Platelet Comment Cancelled Polychromasia Cancelled Poikilocytosis Cancelled Basophilic Stippling Cancelled Anisocytosis Cancelled Microcytosis Cancelled Macrocytosis Cancelled Spherocytes Cancelled Siderocytes Cancelled Sickle Cells Cancelled Target Cells Cancelled Tear Drop Cells Cancelled Ovalocytes Cancelled Stomatocytes Cancelled Helmet Cells Cancelled [place] Bodies Cancelled [place] Rings Cancelled Joel Cells Cancelled Acanthocytes (Spur) Cancelled Rouleaux Cancelled Fragmented RBCs Cancelled Schistocytes Cancelled PT with INR INR PTT (Actin FS) Anticoagulation Therapy No Result Required. Puncture Site Right radial Patient Temperature No Result Required. ABG pH 7.404 ABG pCO2 < 16.70 L ABG pO2 230.7 H ABG HCO3 No Result Required. ABG O2 Sat (Measured) No Result Required. ABG O2 Content No Result Required. ABG Base Excess No Result Required. Dante Test Positive Patient On Oxygen Yes O2 Delivery Device Nrm Oxygen Flow Rate 15l Vent Mode No Result Required. Vent Rate No Result Required. Mechanical Rate No Result Required. PEEP No Result Required. Pressure Support Vent No Result Required. Sodium Potassium Chloride Carbon Dioxide Anion Gap BUN Creatinine Est GFR (CKD-EPI)AfAm Est GFR (CKD-EPI)NonAf Random Glucose Lactic Acid Calcium Ferritin Total Bilirubin Direct Bilirubin AST ALT Alkaline Phosphatase LD Total Creatine Kinase Creatine Kinase Index CK-MB (CK-2) 0.3 L Troponin I C-Reactive Protein Total Protein Albumin Blood Type Antibody Screen Crossmatch Active Medications Generic Name Dose Route Start Last Admin Trade Name Freq PRN Reason Stop Dose Admin Chlorhexidine Gluconate 1 applic 04/05/20 22:00 Hibiclens For Decolonization - TP HS PHILIPP Fentanyl 500 mcg in 100 mls @ 13.608 mls/hr 04/05/20 09:15 04/05/20 10:32 Sublimaze Ivpb IVPB 1 mcg/kg/hr TITR PHILIPP 13.608 mls/hr Administration 1 MCG/KG/HR Sodium Bicarbonate 150 meq/ 1,150 mls @ 125 mls/hr 04/05/20 12:45 Dextrose IV Q9H PHILIPP Norepinephrine Bitartrate 8,000 mcg in 500 mls @ 18.75 mls/hr 04/05/20 13:00 Levophed Bag IVPB TITR PHILIPP Protocol 5 MCG/MIN Mupirocin 1 applic 04/05/20 13:00 Bactroban Ointment (For Decolonization) - NS 04/10/20 12:59 BID PHILIPP ASSESSMENT/PLAN: 69 yo male with PMH of lung ca (last chemotherapy was 03/24) epilepsy, HTN, H.pylori, anemia, BPH, COPD, chronic renal insufficiency, RUE DVT on eliquis, dementia was brought in from [facility] after he was found down for an unknown period of time found to be septic, anemic with a subarachnoid hemorrhage. #Neuro intubated; sedated on fentanyl -found to have subarachnoid hemorrhage with mild cortical bleeds -received 1 gram of keppra; will continue with keppra -repeat head CT -neurosurg and neuro consulted appreciate recs #Cardio HTN currently hypotensive and not fluid responsive -will start levophed -maintain MAP >65 -monitor hemodynamics #ID neutropenic sepsis -f/u blood and urine cx and covid test -received vanc/cefepime will continue -neutropenic preacautions -ID consulted; appreciate recs -maintain MAP >65 -pressor support #Heme/Onc history of lung ca; chronic anemia wbc 0.6; Hgb 6.4 platelets 3 -so far received 1 unit of platelets and 1 unit of FFP and vit K -will repeat CBC AND coags -heme onc consult -holding eliquis -code status: FULL CODE; will need to address ongoing GOC given poor prognosis #MSK found to have right hip fracture #Pulm intubated; sedated -f/u covid test -maintain spo2 between 88-92 #Renal chronic renal insufficency -patient came in lactic acid >15; Cr 6.7 -started on bicarb gtt with an additional amp of bicarb -will repeat lactic acid and BMP -nephro consult -monitor volume status -I's and O's f/e/n bicarb gtt in d5w monitor electrolytes NPO code status: FULL CODE dvt ppx: scds in light of low platelets and bleeding Dispo: We will continue to follow the patient. Thank you for this consultative opportunity. Problem List - Problems (1) Closed right hip fracture Code(s): S72.001A - FRACTURE OF UNSP PART OF NECK OF RIGHT FEMUR, INIT Qualifiers: Encounter type: initial encounter Qualified Code(s): S72.001A - Fracture of unspecified part of neck of right femur, initial encounter for closed fracture (2) Fall Code(s): W19.XXXA - UNSPECIFIED FALL, INITIAL ENCOUNTER Qualifiers: Encounter type: initial encounter Qualified Code(s): W19.XXXA - Unspecified fall, initial encounter (3) Lung cancer Code(s): C34.90 - MALIGNANT NEOPLASM OF UNSP PART OF UNSP BRONCHUS OR LUNG Qualifiers: Laterality: unspecified laterality Lung location: unspecified part of lung Qualified Code(s): C34.90 - Malignant neoplasm of unspecified part of unspecified bronchus or lung (4) Pancytopenia Code(s): D61.818 - OTHER PANCYTOPENIA Visit type - Medication Review Med list reviewed for High Risk Meds patients 65 and older: Yes - Emergency Visit Emergency Visit: Yes ED Registration Date: 04/05/20 Care time: The patient presented to the Emergency Department on the above date and was hospitalized for further evaluation of their emergent condition. - New Patient This patient is new to me today: Yes Date on this admission: 04/05/20 - Critical Care Critical Care patient: Yes Total Critical Care Time (in minutes): 35 Critical Care Statement: The care of this patient involved high complexity decision making to prevent further life threatening deterioration of the patient's condition and/or to evaluate & treat vital organ system(s) failure or risk of failure. ATTENDING PHYSICIAN STATEMENT I saw and evaluated the patient. I reviewed the resident's note and discussed the case with the resident. I agree with the resident's findings and plan as documented. SUBJECTIVE: OBJECTIVE: ASSESSMENT AND PLAN:
[2020-04-05] MEDS ORDERED: PHENYLEPHRINE HCL 10 MG/1 ML SINGLE DOSE VIAL IVPB ONE ×2 (14:01→14:06)
[2020-04-05] MEDS ORDERED: PHENYLEPHRINE HCL 10 MG/1 ML SINGLE DOSE VIAL ONE (14:05)
[2020-04-05] MEDS ORDERED: VASOPRESSIN 40 UNITS in SODIUM CHLORIDE 98 ML IVPB SCH (14:30)
--- NOTE | 2020-04-05 14:46 | CONSULT ---
Consultation: REQUESTING PROVIDER: CONSULT REQUEST: We have been asked to medically evaluate this patient for (specify). HISTORY OF PRESENT ILLNESS: REVIEW OF SYSTEMS: CONSTITUTIONAL: Absent: fever, chills, diaphoresis, generalized weakness, malaise, loss of appetite, weight change HEENT: Absent: rhinorrhea, nasal congestion, throat pain, throat swelling, difficulty swallowing, mouth swelling, ear pain, eye pain, visual changes CARDIOVASCULAR: Absent: chest pain, syncope, palpitations, irregular heart rate, lightheadedness, peripheral edema RESPIRATORY: Absent: cough, shortness of breath, dyspnea with exertion, orthopnea, wheezing, stridor, hemoptysis GASTROINTESTINAL: Absent: abdominal pain, abdominal distension, nausea, vomiting, diarrhea, constipation, melena, hematochezia GENITOURINARY: Absent: dysuria, frequency, urgency, hesitancy, hematuria, flank pain, genital pain MUSCULOSKELETAL: Absent: myalgia, arthralgia, joint swelling, back pain, neck pain SKIN: Absent: rash, itching, pallor HEMATOLOGIC/IMMUNOLOGIC: Absent: easy bleeding, easy bruising, lymphadenopathy, frequent infections ENDOCRINE: Absent: unexplained weight gain, unexplained weight loss, heat intolerance, cold intolerance NEUROLOGIC: Absent: headache, focal weakness or paresthesias, dizziness, unsteady gait, seizure, mental status changes, bladder or bowel incontinence PSYCHIATRIC: Absent: anxiety, depression, suicidal or homicidal ideation, hallucinations. PHYSICAL EXAMINATION Vital Signs - 24 hr 04/05/20 04/05/20 04/05/20 08:41 08:45 08:47 Temperature Pulse Rate Pulse Rate [ Left] Pulse Rate [ 94 H 96 H 98 H Right Radial] Respiratory Rate Blood Pressure Blood Pressure 50/29 L 47/30 L 49/31 L [Left Arm] O2 Sat by Pulse Oximetry (%) 04/05/20 04/05/20 04/05/20 08:50 08:55 09:02 Temperature Pulse Rate Pulse Rate [ Left] Pulse Rate [ 95 H 98 H 99 H Right Radial] Respiratory Rate Blood Pressure Blood Pressure 54/37 L 74/41 L 78/43 L [Left Arm] O2 Sat by Pulse Oximetry (%) 04/05/20 04/05/20 04/05/20 09:11 09:59 10:03 Temperature Pulse Rate Pulse Rate [ 98 H 107 H Left] Pulse Rate [ Right Radial] Respiratory 12 Rate Blood Pressure Blood Pressure 99/58 L 102/61 [Left Arm] O2 Sat by Pulse 100 100 Oximetry (%) 04/05/20 04/05/20 04/05/20 10:17 10:20 11:01 Temperature Pulse Rate Pulse Rate [ 101 H 100 H 94 H Left] Pulse Rate [ Right Radial] Respiratory 22 H 24 H 12 Rate Blood Pressure Blood Pressure 102/61 107/58 L 116/56 L [Left Arm] O2 Sat by Pulse 100 100 100 Oximetry (%) 04/05/20 04/05/20 04/05/20 11:20 11:22 11:56 Temperature 92.9 F L 92.5 F L 93.1 F L Pulse Rate 91 H 91 H Pulse Rate [ Left] Pulse Rate [ Right Radial] Respiratory 14 12 Rate Blood Pressure 112/57 L 112/57 L Blood Pressure [Left Arm] O2 Sat by Pulse 100 100 Oximetry (%) 04/05/20 04/05/20 04/05/20 12:16 12:47 13:05 Temperature 93.3 F L 93.6 F L Pulse Rate Pulse Rate [ 74 89 72 Left] Pulse Rate [ Right Radial] Respiratory 14 14 14 Rate Blood Pressure Blood Pressure 94/45 L 90/47 L 68/41 L [Left Arm] O2 Sat by Pulse 100 100 Oximetry (%) 04/05/20 04/05/20 04/05/20 13:20 13:26 14:15 Temperature Pulse Rate Pulse Rate [ 104 H 100 H Left] Pulse Rate [ Right Radial] Respiratory 14 12 14 Rate Blood Pressure Blood Pressure 82/43 L 63/45 L [Left Arm] O2 Sat by Pulse 100 100 Oximetry (%) 04/05/20 04/05/20 04/05/20 14:47 15:00 16:00 Temperature 94.0 F L 92.3 F L Pulse Rate 142 H 92 H Pulse Rate [ 91 H Left] Pulse Rate [ Right Radial] Respiratory 14 12 Rate Blood Pressure 51/42 L 41/32 L Blood Pressure 61/36 L [Left Arm] O2 Sat by Pulse 97 Oximetry (%) 04/05/20 04/05/20 04/05/20 16:30 17:10 17:59 Temperature Pulse Rate 112 H 92 H Pulse Rate [ Left] Pulse Rate [ Right Radial] Respiratory 12 12 Rate Blood Pressure 67/54 L 60/42 L Blood Pressure [Left Arm] O2 Sat by Pulse Oximetry (%) 04/05/20 04/05/20 04/05/20 18:12 20:00 20:50 Temperature 92.3 F L 92.6 F L Pulse Rate 88 78 Pulse Rate [ Left] Pulse Rate [ Right Radial] Respiratory 12 12 12 Rate Blood Pressure 46/12 L 65/27 L Blood Pressure [Left Arm] O2 Sat by Pulse Oximetry (%) 04/05/20 04/05/20 04/05/20 21:00 22:00 23:00 Temperature 92.5 F L 92 F L Pulse Rate 78 70 45 L Pulse Rate [ Left] Pulse Rate [ Right Radial] Respiratory 12 12 12 Rate Blood Pressure 42/16 L Blood Pressure [Left Arm] O2 Sat by Pulse Oximetry (%) 04/06/20 00:34 Temperature Pulse Rate Pulse Rate [ Left] Pulse Rate [ Right Radial] Respiratory 12 Rate Blood Pressure Blood Pressure [Left Arm] O2 Sat by Pulse Oximetry (%) GENERAL: Awake, alert, and fully oriented, in no acute distress. HEAD: Normal with no signs of trauma. EYES: Pupils equal, round and reactive to light, extraocular movements intact, sclera anicteric, conjunctiva clear. No lid lag. EARS, NOSE, THROAT: Ears normal, nares patent, oropharynx clear without exudates. Moist mucous membranes. NECK: Normal range of motion, supple without lymphadenopathy, JVD, or masses. LUNGS: Breath sounds equal, clear to auscultation bilaterally. No wheezes, and no crackles. No accessory muscle use. HEART: Regular rate and rhythm, normal S1 and S2 without murmur, rub or gallop. ABDOMEN: Soft, nontender, not distended, normoactive bowel sounds, no guarding, no rebound, no masses. No hepatomegaly or splenomegaly. MUSCULOSKELETAL: Normal range of motion at all joints. No bony deformities or tenderness. No CVA tenderness. UPPER EXTREMITIES: 2+ pulses, warm, well-perfused. No cyanosis. No clubbing. Cap refill <2 seconds. No peripheral edema. LOWER EXTREMITIES: 2+ pulses, warm, well-perfused. No calf tenderness. No peripheral edema. NEUROLOGICAL: Cranial nerves II-XII intact. Normal speech. Normal gait. PSYCHIATRIC: Cooperative. Good eye contact. Appropriate mood and affect. SKIN: Warm, dry, normal turgor, no rashes or lesions noted. Laboratory Results - last 24 hr 04/05/20 04/05/20 04/05/20 07:44 07:44 07:44 WBC RBC Hgb Hct MCV MCH MCHC RDW Plt Count MPV Absolute Neuts (auto) 0.1 L Total Counted Neutrophils % 24.0 L D Neutrophils % (Manual) 8.2 L D Band Neutrophils % 0.0 Lymphocytes % 73.5 H D Lymphocytes % (Manual) 88.5 H* D Monocytes % 1.7 L D Monocytes % (Manual) 3 L D Eosinophils % 0.4 D Eosinophils % (Manual) 0.0 Basophils % 0.4 Basophils % (Manual) 0.0 Myelocytes % (Man) 0 Promyelocytes % (Man) 0 Blast Cells % (Manual) 0 Nucleated RBC % 0 Metamyelocytes 0 Differential Comment Hypersegmented Neuts Plasma Cells Smudge Cells Other Cell Type Hypochromia 0 Toxic Granulation Dohle Bodies Mann Rods Platelet Estimate Decreased Platelet Comment Polychromasia 0 Poikilocytosis 1+ Basophilic Stippling Anisocytosis 1+ Microcytosis 0 Macrocytosis 0 Spherocytes Siderocytes Sickle Cells Target Cells Tear Drop Cells Ovalocytes 1+ Stomatocytes Helmet Cells [place] Bodies Meeker Rings Joel Cells 2+ Acanthocytes (Spur) Rouleaux Fragmented RBCs Schistocytes PT with INR INR PTT (Actin FS) Fibrinogen Sodium 136 Potassium 5.5 H Chloride 102 Carbon Dioxide 8 L Anion Gap 26 H BUN 88.2 H Creatinine 6.7 H Est GFR (CKD-EPI)AfAm 8.95 Est GFR (CKD-EPI)NonAf 7.72 Random Glucose 116 H Lactic Acid Calcium 9.1 Ferritin 53005.7 H Total Bilirubin 2.2 H Direct Bilirubin 1.7 H AST 301 H ALT 216 H Alkaline Phosphatase 52 LD Total 354 H Creatine Kinase 1496 H Creatine Kinase Index 0.3 CK-MB (CK-2) 5.8 H Troponin I 0.11 H C-Reactive Protein 25.5 H Total Protein 7.3 Albumin 2.6 L COVID-19 (EFRAIN) Blood Type Antibody Screen Crossmatch 04/05/20 04/05/20 04/05/20 07:44 07:44 07:44 WBC RBC Hgb Hct MCV MCH MCHC RDW Plt Count MPV Absolute Neuts (auto) Total Counted Cancelled Neutrophils % Neutrophils % (Manual) Cancelled Band Neutrophils % Cancelled Lymphocytes % Lymphocytes % (Manual) Cancelled Monocytes % Monocytes % (Manual) Cancelled Eosinophils % Eosinophils % (Manual) Cancelled Basophils % Basophils % (Manual) Cancelled Myelocytes % (Man) Cancelled Promyelocytes % (Man) Cancelled Blast Cells % (Manual) Cancelled Nucleated RBC % Cancelled Metamyelocytes Cancelled Differential Comment Cancelled Hypersegmented Neuts Cancelled Plasma Cells Cancelled Smudge Cells Cancelled Other Cell Type Cancelled Hypochromia Cancelled Toxic Granulation Cancelled Dohle Bodies Cancelled Mann Rods Cancelled Platelet Estimate Cancelled Platelet Comment Cancelled Polychromasia Cancelled Poikilocytosis Cancelled Basophilic Stippling Cancelled Anisocytosis Cancelled Microcytosis Cancelled Macrocytosis Cancelled Spherocytes Cancelled Siderocytes Cancelled Sickle Cells Cancelled Target Cells Cancelled Tear Drop Cells Cancelled Ovalocytes Cancelled Stomatocytes Cancelled Helmet Cells Cancelled [place] Bodies Cancelled [place] Cancelled [place] Cells Cancelled Acanthocytes (Spur) Cancelled Rouleaux Cancelled Fragmented RBCs Cancelled Schistocytes Cancelled PT with INR INR PTT (Actin FS) Fibrinogen Sodium Potassium Chloride Carbon Dioxide Anion Gap BUN Creatinine Est GFR (CKD-EPI)AfAm Est GFR (CKD-EPI)NonAf Random Glucose Lactic Acid > 15.0 H* Calcium Ferritin Total Bilirubin Direct Bilirubin AST ALT Alkaline Phosphatase LD Total Creatine Kinase Creatine Kinase Index CK-MB (CK-2) Troponin I C-Reactive Protein Total Protein Albumin COVID-19 (EFRAIN) Blood Type O POSITIVE Antibody Screen Negative Crossmatch See Detail 04/05/20 04/05/20 04/05/20 07:44 07:50 21:00 WBC 0.2 L* RBC 0.87 L Hgb 2.9 L* Hct 9.2 L MCV 106.0 H D MCH 33.1 MCHC 31.3 L RDW 16.2 H Plt Count 11 L* D MPV 7.8 D Absolute Neuts (auto) 0.0 L Total Counted Neutrophils % 7.6 L D Neutrophils % (Manual) Band Neutrophils % Lymphocytes % 81.3 H Lymphocytes % (Manual) Monocytes % 7.6 D Monocytes % (Manual) Eosinophils % 3.5 D Eosinophils % (Manual) Basophils % 0.0 Basophils % (Manual) Myelocytes % (Man) Promyelocytes % (Man) Blast Cells % (Manual) Nucleated RBC % 1 H Metamyelocytes Differential Comment Hypersegmented Neuts Plasma Cells Smudge Cells Other Cell Type Hypochromia Toxic Granulation Dohle Bodies Mann Rods Platelet Estimate Platelet Comment Polychromasia Poikilocytosis Basophilic Stippling Anisocytosis Microcytosis Macrocytosis Spherocytes Siderocytes Sickle Cells Target Cells Tear Drop Cells Ovalocytes Stomatocytes Helmet Cells [place] Bodies [place] Rings Joel Cells Acanthocytes (Spur) Rouleaux Fragmented RBCs Schistocytes PT with INR INR PTT (Actin FS) Fibrinogen Sodium Potassium Chloride Carbon Dioxide Anion Gap BUN Creatinine Est GFR (CKD-EPI)AfAm Est GFR (CKD-EPI)NonAf Random Glucose Lactic Acid Calcium Ferritin Total Bilirubin Direct Bilirubin AST ALT Alkaline Phosphatase LD Total Creatine Kinase Creatine Kinase Index CK-MB (CK-2) 0.3 L Troponin I C-Reactive Protein Total Protein Albumin COVID-19 (EFRAIN) Not detected Blood Type Antibody Screen Crossmatch 04/05/20 04/05/20 04/05/20 21:00 21:00 21:00 WBC RBC Hgb Hct MCV MCH MCHC RDW Plt Count MPV Absolute Neuts (auto) Total Counted Neutrophils % Neutrophils % (Manual) Band Neutrophils % Lymphocytes % Lymphocytes % (Manual) Monocytes % Monocytes % (Manual) Eosinophils % Eosinophils % (Manual) Basophils % Basophils % (Manual) Myelocytes % (Man) Promyelocytes % (Man) Blast Cells % (Manual) Nucleated RBC % Metamyelocytes Differential Comment Hypersegmented Neuts Plasma Cells Smudge Cells Other Cell Type Hypochromia Toxic Granulation Dohle Bodies Mann Rods Platelet Estimate Platelet Comment Polychromasia Poikilocytosis Basophilic Stippling Anisocytosis Microcytosis Macrocytosis Spherocytes Siderocytes Sickle Cells Target Cells Tear Drop Cells Ovalocytes Stomatocytes Helmet Cells [place] Bodies [place] Rings Joel Cells Acanthocytes (Spur) Rouleaux Fragmented RBCs Schistocytes PT with INR 83.20 H INR 6.91 H* PTT (Actin FS) 74.8 H Fibrinogen Sodium 143 Potassium 7.0 H* Chloride 107 Carbon Dioxide 9 L Anion Gap 27 H BUN 73.8 H Creatinine 5.5 H Est GFR (CKD-EPI)AfAm 11.36 Est GFR (CKD-EPI)NonAf 9.80 Random Glucose 116 H Lactic Acid > 15.0 H* Calcium 7.7 L Ferritin Total Bilirubin 1.6 H Direct Bilirubin AST 355 H ALT 126 H Alkaline Phosphatase 37 L LD Total Creatine Kinase Creatine Kinase Index CK-MB (CK-2) Troponin I C-Reactive Protein Total Protein 4.2 L Albumin 1.6 L COVID-19 (EFRAIN) Blood Type Antibody Screen Crossmatch 04/05/20 21:00 WBC RBC Hgb Hct MCV MCH MCHC RDW Plt Count MPV Absolute Neuts (auto) Total Counted Neutrophils % Neutrophils % (Manual) Band Neutrophils % Lymphocytes % Lymphocytes % (Manual) Monocytes % Monocytes % (Manual) Eosinophils % Eosinophils % (Manual) Basophils % Basophils % (Manual) Myelocytes % (Man) Promyelocytes % (Man) Blast Cells % (Manual) Nucleated RBC % Metamyelocytes Differential Comment Hypersegmented Neuts Plasma Cells Smudge Cells Other Cell Type Hypochromia Toxic Granulation Dohle Bodies Mann Rods Platelet Estimate Platelet Comment Polychromasia Poikilocytosis Basophilic Stippling Anisocytosis Microcytosis Macrocytosis Spherocytes Siderocytes Sickle Cells Target Cells Tear Drop Cells Ovalocytes Stomatocytes Helmet Cells [place] Bodies Meeker Rings Joel Cells Acanthocytes (Spur) Rouleaux Fragmented RBCs Schistocytes PT with INR INR PTT (Actin FS) Fibrinogen < 100.0 L* Sodium Potassium Chloride Carbon Dioxide Anion Gap BUN Creatinine Est GFR (CKD-EPI)AfAm Est GFR (CKD-EPI)NonAf Random Glucose Lactic Acid Calcium Ferritin Total Bilirubin Direct Bilirubin AST ALT Alkaline Phosphatase LD Total Creatine Kinase Creatine Kinase Index CK-MB (CK-2) Troponin I C-Reactive Protein Total Protein Albumin COVID-19 (EFRAIN) Blood Type Antibody Screen Crossmatch I saw and evaluated the patient. I reviewed the resident's note and discussed the case with the resident. I agree with the resident's findings and plan as documented. 69 year old male with past medical history of lung CA with mets on chemo (Carbo/Alimta/Pembrolizumab, last dose 03/24), Right renal mass, COPD, seizures, dementia, anemia, neuropathy, CKD, right brachial DVT, was brought in from [facility] after he was found unconscious on the floor. At the ED, patient was noted to have ecchymosis and swelling around both eyes, tachypneic and tachyc ardic. He had an episode of witnessed generalized seizure, and was subsequently intubated for airway protection. On labs, patient was found to be pancytopenic, with ANC of 0.1, hyperkalemic, DONALDO with Cr of 6.7, lactic acidosis of >15, elevated ferritin of >11k, LDH 354, CRP 25. Broad spectrum Cefepime and Vancomycin given, 1gram keppra, 2 units PRBCS, 2 units platelets, 2 units FFP, 10 vit K ,3.5L fluid, started on bicarb gtt and subsequently required pressors. Patient admitted to the ICU. Very poor prognosis with severe myelosuppression/ severe sepsis DNR <Nalini Brantley - Last Filed: 04/06/20 08:44> Consultation: REQUESTING PROVIDER: Dr. Perez CONSULT REQUEST: We have been asked to medically evaluate this patient for pancytopenia. HISTORY OF PRESENT ILLNESS: Patient is a 69 year old male with past medical history of lung CA with mets on chemo (Carbo/Alimta/Pembrolizumab, last dose 03/24), Right renal mass, COPD, seizures, dementia, anemia, neuropathy, CKD, right brachial DVT on eliquis, was brought in from [facility] after he was found unconscious on the floor. At the ED, patient was noted to have ecchymosis and swelling around both eyes, tachypneic and tachycardic. He had an episode of witnessed generalized seizure, and was subsequently intubated for airway protection. On labs, patient was found to be pancytopenic, with ANC of 0.1, hyperkalemic, DONALDO with Cr of 6.7, lactic acidosis of >15, elevated ferritin of >11k, LDH 354, CRP 25. Broad spectrum Cefepime and Vancomycin given, 1gram keppra, 2 units PRBCS, 2 units platelets, 2 units FFP, 10 vit K ,3.5L fluid, started on bicarb gtt and subsequently required pressors. Patient admitted to the ICU. 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 New left rectus sheath hematoma. In the right hip, findings suggest Paget's disease. 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 PHYSICAL EXAMINATION Vital Signs - 24 hr 04/05/20 04/05/20 04/05/20 06:36 07:15 08:27 Temperature 96.9 F L 98.1 F Pulse Rate 84 Pulse Rate [ 118 H Left] Pulse Rate [ 91 H Right Radial] Respiratory 24 H 16 26 H Rate Blood Pressure 121/66 Blood Pressure 153/78 154/94 [Left Arm] O2 Sat by Pulse 97 87 L 98 Oximetry (%) 04/05/20 04/05/20 04/05/20 08:36 08:39 08:41 Temperature Pulse Rate Pulse Rate [ Left] Pulse Rate [ 100 H 93 H 94 H Right Radial] Respiratory Rate Blood Pressure Blood Pressure 123/62 61/36 L 50/29 L [Left Arm] O2 Sat by Pulse Oximetry (%) 04/05/20 04/05/20 04/05/20 08:45 08:47 08:50 Temperature Pulse Rate Pulse Rate [ Left] Pulse Rate [ 96 H 98 H 95 H Right Radial] Respiratory Rate Blood Pressure Blood Pressure 47/30 L 49/31 L 54/37 L [Left Arm] O2 Sat by Pulse Oximetry (%) 04/05/20 04/05/20 04/05/20 08:55 09:02 09:11 Temperature Pulse Rate Pulse Rate [ Left] Pulse Rate [ 98 H 99 H Right Radial] Respiratory 12 Rate Blood Pressure Blood Pressure 74/41 L 78/43 L [Left Arm] O2 Sat by Pulse Oximetry (%) 04/05/20 04/05/20 04/05/20 09:59 10:03 10:17 Temperature Pulse Rate Pulse Rate [ 98 H 107 H 101 H Left] Pulse Rate [ Right Radial] Respiratory 22 H Rate Blood Pressure Blood Pressure 99/58 L 102/61 102/61 [Left Arm] O2 Sat by Pulse 100 100 100 Oximetry (%) 04/05/20 04/05/20 04/05/20 10:20 11:01 11:20 Temperature 92.9 F L Pulse Rate 91 H Pulse Rate [ 100 H 94 H Left] Pulse Rate [ Right Radial] Respiratory 24 H 12 14 Rate Blood Pressure 112/57 L Blood Pressure 107/58 L 116/56 L [Left Arm] O2 Sat by Pulse 100 100 100 Oximetry (%) 04/05/20 04/05/20 04/05/20 11:22 11:56 12:16 Temperature 92.5 F L 93.1 F L 93.3 F L Pulse Rate 91 H Pulse Rate [ 74 Left] Pulse Rate [ Right Radial] Respiratory 12 14 Rate Blood Pressure 112/57 L Blood Pressure 94/45 L [Left Arm] O2 Sat by Pulse 100 100 Oximetry (%) 04/05/20 12:47 Temperature 93.6 F L Pulse Rate Pulse Rate [ 89 Left] Pulse Rate [ Right Radial] Respiratory 14 Rate Blood Pressure Blood Pressure 90/47 L [Left Arm] O2 Sat by Pulse Oximetry (%) GENERAL: intubated sedated EYES: madelyn-orbital swelling and ecchymosis bilaterally, Right conjunctival hemorrhage EARS, NOSE, THROAT: dry mucous membranes, dried blood around mouth, ET tube in place LUNGS: decreased breath sounds HEART: tachycardic, normal S1/S2 ABDOMEN: Soft, not distended, normoactive bowel sounds LOWER EXTREMITIES: 2+ pulses, warm, well-perfused. 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 RBC 1.99 L Hgb 6.4 L* Hct 19.1 L D MCV 96.1 H MCH 32.2 MCHC 33.5 RDW 17.6 H Plt Count 3 L* D MPV 8.8 Absolute Neuts (auto) 0.1 L Total Counted Neutrophils % 24.0 L D Neutrophils % (Manual) 8.2 L D Band Neutrophils % 0.0 Lymphocytes % 73.5 H D Lymphocytes % (Manual) 88.5 H* D Monocytes % 1.7 L D Monocytes % (Manual) 3 L D Eosinophils % 0.4 D Eosinophils % (Manual) 0.0 Basophils % 0.4 Basophils % (Manual) 0.0 Myelocytes % (Man) 0 Promyelocytes % (Man) 0 Blast Cells % (Manual) 0 Nucleated RBC % 0 Metamyelocytes 0 Differential Comment Hypersegmented Neuts Plasma Cells Smudge Cells Other Cell Type Hypochromia 0 Toxic Granulation Dohle Bodies Mann Rods Platelet Estimate Decreased Platelet Comment 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 Well Cable Tool Driller Polychromasia 0 Poikilocytosis 1+ Basophilic Stippling Anisocytosis 1+ Microcytosis 0 Macrocytosis 0 Spherocytes Siderocytes Sickle Cells Target Cells Tear Drop Cells Ovalocytes 1+ Stomatocytes Helmet Cells [place] Bodies [place] Rings Joel Cells 2+ Acanthocytes (Spur) Rouleaux Fragmented RBCs Schistocytes PT with INR 28.60 H INR 2.40 H PTT (Actin FS) 33.4 Anticoagulation Therapy Puncture Site Patient Temperature ABG pH ABG pCO2 ABG pO2 ABG HCO3 ABG O2 Sat (Measured) ABG O2 Content ABG Base Excess Dante Test Patient On Oxygen O2 Delivery Device Oxygen Flow Rate Vent Mode Vent Rate Mechanical Rate PEEP Pressure Support Vent Sodium Potassium Chloride Carbon Dioxide Anion Gap BUN Creatinine Est GFR (CKD-EPI)AfAm Est GFR (CKD-EPI)NonAf Random Glucose Lactic Acid Calcium Ferritin Total Bilirubin Direct Bilirubin AST ALT Alkaline Phosphatase LD Total Creatine Kinase Creatine Kinase Index CK-MB (CK-2) Troponin I 0.11 H C-Reactive Protein Total Protein Albumin Blood Type Antibody Screen Crossmatch 04/05/20 04/05/20 04/05/20 07:44 07:44 07:44 WBC Corrected WBC (auto) RBC Hgb Hct MCV MCH MCHC RDW Plt Count MPV Absolute Neuts (auto) Total Counted Neutrophils % Neutrophils % (Manual) Band Neutrophils % Lymphocytes % Lymphocytes % (Manual) Monocytes % Monocytes % (Manual) Eosinophils % Eosinophils % (Manual) Basophils % Basophils % (Manual) Myelocytes % (Man) Promyelocytes % (Man) Blast Cells % (Manual) Nucleated RBC % Metamyelocytes Differential Comment Hypersegmented Neuts Plasma Cells Smudge Cells Other Cell Type Hypochromia Toxic Granulation Dohle Bodies Mann Rods Platelet Estimate Platelet Comment Polychromasia Poikilocytosis Basophilic Stippling Anisocytosis Microcytosis Macrocytosis Spherocytes Siderocytes Sickle Cells Target Cells Tear Drop Cells Ovalocytes Stomatocytes Helmet Cells [place] Bodies [place] Rings Joel Cells Acanthocytes (Spur) Rouleaux Fragmented RBCs Schistocytes PT with INR INR PTT (Actin FS) Anticoagulation Therapy Puncture Site Patient Temperature ABG pH ABG pCO2 ABG pO2 ABG HCO3 ABG O2 Sat (Measured) ABG O2 Content ABG Base Excess Dante Test Patient On Oxygen O2 Delivery Device Oxygen Flow Rate Vent Mode Vent Rate Mechanical Rate PEEP Pressure Support Vent Sodium 136 Potassium 5.5 H Chloride 102 Carbon Dioxide 8 L Anion Gap 26 H BUN 88.2 H Creatinine 6.7 H Est GFR (CKD-EPI)AfAm 8.95 Est GFR (CKD-EPI)NonAf 7.72 Random Glucose 116 H Lactic Acid > 15.0 H* Calcium 9.1 Ferritin 48037.7 H Total Bilirubin 2.2 H Direct Bilirubin 1.7 H AST 301 H ALT 216 H Alkaline Phosphatase 52 LD Total 354 H Creatine Kinase 1496 H Creatine Kinase Index 0.3 CK-MB (CK-2) 5.8 H Troponin I C-Reactive Protein 25.5 H Total Protein 7.3 Albumin 2.6 L Blood Type O POSITIVE Antibody Screen Negative Crossmatch See Detail 04/05/20 04/05/20 04/05/20 07:44 07:44 07:44 WBC Corrected WBC (auto) RBC Hgb Hct MCV MCH MCHC RDW Plt Count MPV Absolute Neuts (auto) Total Counted Cancelled Neutrophils % Neutrophils % (Manual) Cancelled Band Neutrophils % Cancelled Lymphocytes % Lymphocytes % (Manual) Cancelled Monocytes % Monocytes % (Manual) Cancelled Eosinophils % Eosinophils % (Manual) Cancelled Basophils % Basophils % (Manual) Cancelled Myelocytes % (Man) Cancelled Promyelocytes % (Man) Cancelled Blast Cells % (Manual) Cancelled Nucleated RBC % Cancelled Metamyelocytes Cancelled Differential Comment Cancelled Hypersegmented Neuts Cancelled Plasma Cells Cancelled Smudge Cells Cancelled Other Cell Type Cancelled Hypochromia Cancelled Toxic Granulation Cancelled Dohle Bodies Cancelled Mann Rods Cancelled Platelet Estimate Cancelled Platelet Comment Cancelled Polychromasia Cancelled Poikilocytosis Cancelled Basophilic Stippling Cancelled Anisocytosis Cancelled Microcytosis Cancelled Macrocytosis Cancelled Spherocytes Cancelled Siderocytes Cancelled Sickle Cells Cancelled Target Cells Cancelled Tear Drop Cells Cancelled Ovalocytes Cancelled Stomatocytes Cancelled Helmet Cells Cancelled [place] Bodies Cancelled [place] Cancelled Jole Cells Cancelled Acanthocytes (Spur) Cancelled Rouleaux Cancelled Fragmented RBCs Cancelled Schistocytes Cancelled PT with INR INR PTT (Actin FS) Anticoagulation Therapy No Result Required. Puncture Site Right radial Patient Temperature No Result Required. ABG pH 7.404 ABG pCO2 < 16.70 L ABG pO2 230.7 H ABG HCO3 No Result Required. ABG O2 Sat (Measured) No Result Required. ABG O2 Content No Result Required. ABG Base Excess No Result Required. Dante Test Positive Patient On Oxygen Yes O2 Delivery Device Nrm Oxygen Flow Rate 15l Vent Mode No Result Required. Vent Rate No Result Required. Mechanical Rate No Result Required. PEEP No Result Required. Pressure Support Vent No Result Required. Sodium Potassium Chloride Carbon Dioxide Anion Gap BUN Creatinine Est GFR (CKD-EPI)AfAm Est GFR (CKD-EPI)NonAf Random Glucose Lactic Acid Calcium Ferritin Total Bilirubin Direct Bilirubin AST ALT Alkaline Phosphatase LD Total Creatine Kinase Creatine Kinase Index CK-MB (CK-2) 0.3 L Troponin I C-Reactive Protein Total Protein Albumin Blood Type Antibody Screen Crossmatch Active Medications Generic Name Dose Route Start Last Admin Trade Name Freq PRN Reason Stop Dose Admin Chlorhexidine Gluconate 1 applic 04/05/20 22:00 Hibiclens For Decolonization - TP HS PHILIPP Fentanyl 500 mcg in 100 mls @ 13.608 mls/hr 04/05/20 09:15 04/05/20 10:32 Sublimaze Ivpb IVPB 1 mcg/kg/hr TITR PHILIPP 13.608 mls/hr Administration 1 MCG/KG/HR Sodium Bicarbonate 150 meq/ 1,150 mls @ 125 mls/hr 04/05/20 12:45 Dextrose IV Q9H PHILIPP Norepinephrine Bitartrate 8,000 mcg in 500 mls @ 18.75 mls/hr 04/05/20 13:00 Levophed Bag IVPB TITR PHILIPP Protocol 5 MCG/MIN Mupirocin 1 applic 04/05/20 13:00 Bactroban Ointment (For Decolonization) - NS 04/10/20 12:59 BID PHILIPP ASSESSMENT/PLAN: Patient is a 69 year old male with past medical history of lung CA with mets on chemo (Carbo/Alimta/Pembrolizumab, last dose 03/24), Right renal mass, COPD, seizures, dementia, anemia, neuropathy, CKD, right brachial DVT on eliquis, was brought in from [facility] after he was found unconscious on the floor. We were consulted for further evaluation of pancytopenia. #Panyctopenia -likely in setting of septic shock, MOF, with myelosuppression from recent chemotherapy -unclear source of infection at this time, on vaso and levophed gtt -treated empirically with Cefepime/Vanc at the ED -Blood cx/urine cx pending -2u prbc, 2u FFP, 2u platelets ordered, Vit K given -Follows up with Dr. Treadwell, confirmed patient recently received chemo (03/24), with same regimen Carbo/Alimta/Pembrolizumab -ID consulted. Recs appreciated. Dispo: We will continue to follow the patient. Thank you for this consultative opportunity. <Adri Valentine - Last Filed: 04/07/20 10:12> Visit type - Medication Review Med list reviewed for High Risk Meds patients 65 and older: Yes - Emergency Visit Emergency Visit: Yes ED Registration Date: 04/05/20 Care time: The patient presented to the Emergency Department on the above date and was hospitalized for further evaluation of their emergent condition. - New Patient This patient is new to me today: Yes Date on this admission: 04/05/20 - Critical Care Critical Care patient: Yes Total Critical Care Time (in minutes): 36 Critical Care Statement: The care of this patient involved high complexity decision making to prevent further life threatening deterioration of the patient's condition and/or to evaluate & treat vital organ system(s) failure or risk of failure. <Adri Valentine - Last Filed: 04/07/20 10:12> ATTENDING PHYSICIAN STATEMENT I saw and evaluated the patient. I reviewed the resident's note and discussed the case with the resident. I agree with the resident's findings and plan as documented. SUBJECTIVE: OBJECTIVE: ASSESSMENT AND PLAN: <Nalini Brantley - Last Filed: 04/06/20 08:44> ATTENDING PHYSICIAN STATEMENT I saw and evaluated the patient. I reviewed the resident's note and discussed the case with the resident. I agree with the resident's findings and plan as documented. SUBJECTIVE: OBJECTIVE: ASSESSMENT AND PLAN: <Adri Valentine - Last Filed: 04/07/20 10:12>
[2020-04-05] MEDS ORDERED: MUPIROCIN 2% TOPICAL OINTMENT FOR DECOLONIZATION NS SCH (15:00)
--- NOTE | 2020-04-05 15:05 | PN ---
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 (short form) - Note 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: ID CONSULT DICTATED SEPSIS/SEPTIC SHOCK R/O NEUTROPENIC SEPSIS HYPOTHERMIA PANCYTOPENIA DONALDO LACTIC ACIDOSIS STAGE III LUNG CA ELEVATED LFTS S/P FALL WITH ?HEAD TRAUMA SAH PENDING SEPSIS W/U EMPIRIC VANCOMYCIN/ CEFEPIME ADJUSTED FOR RENAL FAILURE VENTILATORY/ HEMODYNAMIC SUPPORT NEUTROPENIC PRECAUTIONS PROGNOSIS POOR CRITICAL CARE TIME 35MIN
--- NOTE | 2020-04-05 15:12 | CONSULT ---
Consult - text type - Consultation Consultation Note: NEUROSURGERY CONSULTATION Chadd Dupont is a 69 year old male who was brought in by ambulance after being found unresponsive after a presumed fall. Patient with multiple medical problems including lung CA, chronic renal insufficiency with recent admission for acute renal injury discharged on 03/20, sent from [facility] after found on floor this morning. Patient is nonverbal, arrives with ecchymosis and swelling around both eyes, tachypnea, tachycardia, limited ability to follow commands but moving all extremities with eyes open. When I encountered the patient, he was acutely hypotensive and not fit for extensive examination. Head CT shows multiple, bilateral contusions without significant mass effect. Cervical CT demonstrates prior hardware from posterior Cervical decompression and fusion. There is no new lucency, fracture, or migration of the hardware. Significant positive sagittal balance noted. Will follow once stable. No acute Neurosurgical intervention planned.
[2020-04-05] MEDS ORDERED: HYDROCORTISONE SOD SUCCINATE 100 MG/2 ML VIAL IVPUSH ONE (15:42)
[2020-04-05] MEDS ORDERED: PHENYLEPHRINE HCL 10,000 MCG in DEXTROSE 5%-WATER - 499 ML IV SCH (16:00)
[2020-04-05] MEDS ORDERED: FLUDROCORTISONE ACETATE 0.1 MG TABLET (FP) PO SCH (16:00)
[2020-04-05] MEDS: SODIUM BICARBONATE 8.4% - 150 MEQ in DEXTROSE 5%-WATER - 1,000 ML IV SCH ×2 (16:05→22:55)
--- NOTE | 2020-04-05 16:10 | PN ---
Teaching Attending Note Name of Resident: Alma Perez ATTENDING PHYSICIAN STATEMENT I saw and evaluated the patient. I reviewed the resident's note and discussed the case with the resident. I agree with the resident's findings and plan as documented. SUBJECTIVE: Patient seen and examined in the ER. Intubated and sedated. MOF. Multitude of electrolyte and hematologic derrangements. Transfusional support in progress. Dopamine for hemodynamic support. Family apparently wants all interventions despite grave outcome. Intake & Output 04/02/20 04/03/20 04/04/20 04/05/20 23:59 23:59 23:59 23:59 Output Total 50 Balance -50 Weight 150 lb Last Vital Signs Temp Pulse Resp BP Pulse Ox 94.0 F L 91 H 14 61/36 L 97 04/05/20 14:47 04/05/20 14:47 04/05/20 14:47 04/05/20 14:47 04/05/20 14:47 Active Medications Chlorhexidine Gluconate (Hibiclens For Decolonization -) 1 applic TP HS PHILIPP Fludrocortisone Acetate (Florinef -) 0.2 mg PO DAILY PHILIPP Fentanyl (Sublimaze Ivpb) 500 mcg in 100 mls @ 13.608 mls/hr IVPB TITR PHILIPP Last Admin: 04/05/20 10:32 Dose: 1 mcg/kg/hr, 13.608 mls/hr Documented by: Sodium Bicarbonate 150 meq/ (Dextrose) 1,150 mls @ 125 mls/hr IV Q9H PHILIPP Norepinephrine Bitartrate (Levophed Bag) 8,000 mcg in 500 mls @ 18.75 mls/hr IVPB TITR PHILIPP; Protocol Vasopressin 40 units/ Sodium (Chloride) 100 mls @ 5 mls/hr IVPB ASDIR PHILIPP; Protocol Cefepime HCl 1 gm/ Dextrose 100 mls @ 200 mls/hr IVPB BID PHILIPP; Protocol Phenylephrine HCl 10,000 mcg/ (Dextrose) 500 mls @ 120 mls/hr IV TITR PHILIPP; Protocol Mupirocin (Bactroban Ointment (For Decolonization) -) 1 applic NS BID PHILIPP S GENERAL: intubated/sedated HEAD: Normal with no signs of trauma. EYES: eyelid swelling/hematomas B/L; right subconjunctival hemmorrhage EARS, NOSE, THROAT: dry mucous membranes; dry blood around mouth NECK: no JVD; no lymphadenopathy LUNGS: distant breath sounds; no rales or wheezing. HEART: tachycrdaic s1 s2; no murmurs/rubs/gallops. ABDOMEN: Soft, NT ND +BS in all 4 quadrants MUSCULOSKELETAL: Normal range of motion at all joints. No bony deformities or tenderness. No CVA tenderness. EXTREMITIES: warm; well-perfused no clubbing/cyanosis or edema NEUROLOGICAL: unable to assess SKIN: Warm, dry, normal turgor, no rashes or lesions noted. Laboratory Results - last 24 hr 04/05/20 04/05/20 04/05/20 07:44 07:44 07:44 WBC 0.6 L* Corrected WBC (auto) Laborer [place] Tapping RBC 1.99 L Hgb 6.4 L* Hct 19.1 L D MCV 96.1 H MCH 32.2 MCHC 33.5 RDW 17.6 H Plt Count 3 L* D MPV 8.8 Absolute Neuts (auto) 0.1 L Total Counted Neutrophils % 24.0 L D Neutrophils % (Manual) 8.2 L D Band Neutrophils % 0.0 Lymphocytes % 73.5 H D Lymphocytes % (Manual) 88.5 H* D Monocytes % 1.7 L D Monocytes % (Manual) 3 L D Eosinophils % 0.4 D Eosinophils % (Manual) 0.0 Basophils % 0.4 Basophils % (Manual) 0.0 Myelocytes % (Man) 0 Promyelocytes % (Man) 0 Blast Cells % (Manual) 0 Nucleated RBC % 0 Metamyelocytes 0 Differential Comment Hypersegmented Neuts Plasma Cells Smudge Cells Other Cell Type Hypochromia 0 Toxic Granulation Dohle Bodies Mann Rods Platelet Estimate Decreased Platelet Comment [place] Tapping Polychromasia 0 Poikilocytosis 1+ Basophilic Stippling Anisocytosis 1+ Microcytosis 0 Macrocytosis 0 Spherocytes Siderocytes Sickle Cells Target Cells Tear Drop Cells Ovalocytes 1+ Stomatocytes Helmet Cells [place] Bodies [place] Rings [place] Cells 2+ Acanthocytes (Spur) Rouleaux Fragmented RBCs Schistocytes PT with INR 28.60 H INR 2.40 H PTT (Actin FS) 33.4 Anticoagulation Therapy Puncture Site Patient Temperature ABG pH ABG pCO2 ABG pO2 ABG HCO3 ABG O2 Sat (Measured) ABG O2 Content ABG Base Excess Dante Test Patient On Oxygen O2 Delivery Device Oxygen Flow Rate Vent Mode Vent Rate Mechanical Rate PEEP Pressure Support Vent Sodium Potassium Chloride Carbon Dioxide Anion Gap BUN Creatinine Est GFR (CKD-EPI)AfAm Est GFR (CKD-EPI)NonAf Random Glucose Lactic Acid Calcium Ferritin Total Bilirubin Direct Bilirubin AST ALT Alkaline Phosphatase LD Total Creatine Kinase Creatine Kinase Index CK-MB (CK-2) Troponin I 0.11 H C-Reactive Protein Total Protein Albumin Blood Type Antibody Screen Crossmatch 04/05/20 04/05/20 04/05/20 07:44 07:44 07:44 WBC Corrected WBC (auto) RBC Hgb Hct MCV MCH MCHC RDW Plt Count MPV Absolute Neuts (auto) Total Counted Neutrophils % Neutrophils % (Manual) Band Neutrophils % Lymphocytes % Lymphocytes % (Manual) Monocytes % Monocytes % (Manual) Eosinophils % Eosinophils % (Manual) Basophils % Basophils % (Manual) Myelocytes % (Man) Promyelocytes % (Man) Blast Cells % (Manual) Nucleated RBC % Metamyelocytes Differential Comment Hypersegmented Neuts Plasma Cells Smudge Cells Other Cell Type Hypochromia Toxic Granulation Dohle Bodies Mann Rods Platelet Estimate Platelet Comment Polychromasia Poikilocytosis Basophilic Stippling Anisocytosis Microcytosis Macrocytosis Spherocytes Siderocytes Sickle Cells Target Cells Tear Drop Cells Ovalocytes Stomatocytes Helmet Cells [place] Bodies [place] Rings Joel Cells Acanthocytes (Spur) Rouleaux Fragmented RBCs Schistocytes PT with INR INR PTT (Actin FS) Anticoagulation Therapy Puncture Site Patient Temperature ABG pH ABG pCO2 ABG pO2 ABG HCO3 ABG O2 Sat (Measured) ABG O2 Content ABG Base Excess Dante Test Patient On Oxygen O2 Delivery Device Oxygen Flow Rate Vent Mode Vent Rate Mechanical Rate PEEP Pressure Support Vent Sodium 136 Potassium 5.5 H Chloride 102 Carbon Dioxide 8 L Anion Gap 26 H BUN 88.2 H Creatinine 6.7 H Est GFR (CKD-EPI)AfAm 8.95 Est GFR (CKD-EPI)NonAf 7.72 Random Glucose 116 H Lactic Acid > 15.0 H* Calcium 9.1 Ferritin 72170.7 H Total Bilirubin 2.2 H Direct Bilirubin 1.7 H AST 301 H ALT 216 H Alkaline Phosphatase 52 LD Total 354 H Creatine Kinase 1496 H Creatine Kinase Index 0.3 CK-MB (CK-2) 5.8 H Troponin I C-Reactive Protein 25.5 H Total Protein 7.3 Albumin 2.6 L Blood Type O POSITIVE Antibody Screen Negative Crossmatch See Detail 04/05/20 04/05/20 04/05/20 07:44 07:44 07:44 WBC Corrected WBC (auto) RBC Hgb Hct MCV MCH MCHC RDW Plt Count MPV Absolute Neuts (auto) Total Counted Cancelled Neutrophils % Neutrophils % (Manual) Cancelled Band Neutrophils % Cancelled Lymphocytes % Lymphocytes % (Manual) Cancelled Monocytes % Monocytes % (Manual) Cancelled Eosinophils % Eosinophils % (Manual) Cancelled Basophils % Basophils % (Manual) Cancelled Myelocytes % (Man) Cancelled Promyelocytes % (Man) Cancelled Blast Cells % (Manual) Cancelled Nucleated RBC % Cancelled Metamyelocytes Cancelled Differential Comment Cancelled Hypersegmented Neuts Cancelled Plasma Cells Cancelled Smudge Cells Cancelled Other Cell Type Cancelled Hypochromia Cancelled Toxic Granulation Cancelled Dohle Bodies Cancelled Mann Rods Cancelled Platelet Estimate Cancelled Platelet Comment Cancelled Polychromasia Cancelled Poikilocytosis Cancelled Basophilic Stippling Cancelled Anisocytosis Cancelled Microcytosis Cancelled Macrocytosis Cancelled Spherocytes Cancelled Siderocytes Cancelled Sickle Cells Cancelled Target Cells Cancelled Tear Drop Cells Cancelled Ovalocytes Cancelled Stomatocytes Cancelled Helmet Cells Cancelled [place] Bodies Cancelled [place] Rings Cancelled Joel Cells Cancelled Acanthocytes (Spur) Cancelled Rouleaux Cancelled Fragmented RBCs Cancelled Schistocytes Cancelled PT with INR INR PTT (Actin FS) Anticoagulation Therapy No Result Required. Puncture Site Right radial Patient Temperature No Result Required. ABG pH 7.404 ABG pCO2 < 16.70 L ABG pO2 230.7 H ABG HCO3 No Result Required. ABG O2 Sat (Measured) No Result Required. ABG O2 Content No Result Required. ABG Base Excess No Result Required. Dante Test Positive Patient On Oxygen Yes O2 Delivery Device Nrm Oxygen Flow Rate 15l Vent Mode No Result Required. Vent Rate No Result Required. Mechanical Rate No Result Required. PEEP No Result Required. Pressure Support Vent No Result Required. Sodium Potassium Chloride Carbon Dioxide Anion Gap BUN Creatinine Est GFR (CKD-EPI)AfAm Est GFR (CKD-EPI)NonAf Random Glucose Lactic Acid Calcium Ferritin Total Bilirubin Direct Bilirubin AST ALT Alkaline Phosphatase LD Total Creatine Kinase Creatine Kinase Index CK-MB (CK-2) 0.3 L Troponin I C-Reactive Protein Total Protein Albumin Blood Type Antibody Screen Crossmatch Active Medications Generic Name Dose Route Start Last Admin Trade Name Barbara PRN Reason Stop Dose Admin Chlorhexidine Gluconate 1 applic 04/05/20 22:00 Hibiclens For Decolonization - TP HS PHILIPP Fentanyl 500 mcg in 100 mls @ 13.608 mls/hr 04/05/20 09:15 04/05/20 10:32 Sublimaze Ivpb IVPB 1 mcg/kg/hr TITR PHILIPP 13.608 mls/hr Administration 1 MCG/KG/HR Sodium Bicarbonate 150 meq/ 1,150 mls @ 125 mls/hr 04/05/20 12:45 Dextrose IV Q9H PHILIPP Norepinephrine Bitartrate 8,000 mcg in 500 mls @ 18.75 mls/hr 04/05/20 13:00 Levophed Bag IVPB TITR PHILIPP Protocol 5 MCG/MIN Mupirocin 1 applic 04/05/20 13:00 Bactroban Ointment (For Decolonization) - NS 04/10/20 12:59 BID PHILIPP Problem List - Problems (1) Closed right hip fracture Code(s): S72.001A - FRACTURE OF UNSP PART OF NECK OF RIGHT FEMUR, INIT Qualifiers: Encounter type: initial encounter Qualified Code(s): S72.001A - Fracture of unspecified part of neck of right femur, initial encounter for closed fracture (2) Fall Code(s): W19.XXXA - UNSPECIFIED FALL, INITIAL ENCOUNTER Qualifiers: Encounter type: initial encounter Qualified Code(s): W19.XXXA - Unspecified fall, initial encounter (3) Lung cancer Code(s): C34.90 - MALIGNANT NEOPLASM OF UNSP PART OF UNSP BRONCHUS OR LUNG Qualifiers: Laterality: unspecified laterality Lung location: unspecified part of lung Qualified Code(s): C34.90 - Malignant neoplasm of unspecified part of unspecified bronchus or lung (4) Pancytopenia Code(s): D61.818 - OTHER PANCYTOPENIA Visit type ASSESSMENT/PLAN: Acute Respiratory Failure MOF ICH Metastatic Lung CA Epilepsy HTN H.pylori Anemia BPH COPD Chronic renal insufficiency RUE DVT on eliquis Dementia AC Mode of vent Empriric ABX Strict I & O Pressors to maintain MAP Neuro evaluation Keppra IVF Transfusional support Normal transfusion thresholds ID evaluation Requires ICU monitoring Overall prognosis is grave. Suggest P care evaluation with more conservative measures Dr Carolina Critical care time spent in reviewing chart, evaluating patient and formulating plan - 36 minutes.
--- NOTE | 2020-04-05 16:14 | CONS ---
INFECTIOUS DISEASE CONSULTATION DATE OF CONSULTATION: DATE OF DICTATION: 04/05/2020 HISTORY: The patient is a 69-year-old male with a history of stage III lung cancer status post chemotherapy and radiation therapy, now evaluated for septic shock/neutropenic sepsis. History is obtained from the chart as he cannot give a history. He was admitted to the hospital on April 05, 2020, after falling at the sn[facility]. It was unclear how long he had been on the floor and whether or not he had sustained head trauma. He was found to have bilateral orbital ridge swelling. In the emergency room the patient was awake but not verbally responsive. His baseline mental status is that of being awake, oriented and able to follow simple commands. In the emergency room the patient had a seizure and was prophylactically intubated. CAT scan of the head showed a left frontal lobe subarachnoid hemorrhage. In addition, he was found to be pancytopenic with profound neutropenia, anemia and thrombocytopenia. He was empirically treated with vancomycin and cefepime. Patient has a history of lung cancer. He is status post chemotherapy, last cycle of which was March 24, 2020. He was recently admitted to [facility] for treatment of renal failure. No reports of recent febrile illness. No known COVID-19 exposure. PAST MEDICAL HISTORY: Positive for stage III lung cancer diagnosed 2018 with a recurrent lung lesion in 2019, presence of a renal mass, suspected malignancy; seizure disorder, hypertension, BPH, COPD, dementia, DVT. ALLERGIES: No known allergies. MEDICATIONS: Include vancomycin, cefepime, norepinephrine, fentanyl, vasopressin. Chemotherapeutic agents according to the oncologist's note include carboplatin, Alimta and pembrolizumab SOCIAL HISTORY: As per HPI. 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 SYSTEMS REVIEW: Neurologic: Positive for seizure activity, subarachnoid hemorrhage, altered mentation. Cardiac: Negative chest pain or palpitations. Respiratory: Status post intubation. Gastrointestinal: Negative vomiting or diarrhea. Genitourinary: Positive for acute renal failure. LABORATORY DATA: White count 0.6, hematocrit 19.1, platelets 3000. BUN 88, creatinine 6.7, total bilirubin 2.2, alkaline phosphatase 52, AST 301, ALT 216, lactic acid greater than 15, C-reactive protein 28.5. CAT scan of the chest shows COPD with collapse of the right middle lobe, postsurgical changes right upper lobe. CAT scan of the abdomen and pelvis: Left rectus sheath hematoma. PHYSICAL EXAMINATION: General: The patient is intubated, sedated on the ventilator. Vital Signs: Temperature 93.6, blood pressure 96/47, pulse 89 regular, respirations 14 per minute. HEENT: Patient is orally intubated. Positive orbital ridge swelling. Heart: Sounds tachycardic, S1, S2. Lungs: Air entry bilaterally. Abdomen: Soft. No tenderness elicited. Extremities: Positive for pedal edema. Skin: Left heel and sacral decubitus pressure sores. IMPRESSION: 1. Sepsis/septic shock. 2. Rule out neutropenic sepsis. 3. Hypothermia. 4. Pancytopenia. 5. Acute kidney injury. 6. Lactic acidosis. 7. Stage III lung cancer.8. Status post fall with suspected head trauma. 9. Subarachnoid hemorrhage. 10. Status post seizure activity. 11. Elevated liver enzymes. Await sepsis workup. Empiric antibiotic coverage with vancomycin and cefepime adjusted for renal failure. Renal evaluation. Neurosurgical evaluation. Hematology/Oncology evaluation. Neutropenic precautions. Critical care time spent 35 minutes. Thank you for the kind referral. WING DILLON M.D. ANUM/[id number]
--- NOTE | 2020-04-05 20:39 | CONSULT ---
Consult - text type - Consultation Consultation Note: NEUROLOGY CONSULTATION is greatly appreciated: Events reviewed and discussed with RN and ICU residents. This 69 yo man with h/o metastatic lung CA, renal insuffiency, anemia seizure disorder and dementia has been at [facility]. Maintained on: Ferrous Sulfate; Ondansetron; Phenobarbital 32.4; Tamsulosin; Apixaban; Remeron; and Pantoprazole Sodium Transferred today after found on floor, unresponsive after a fall with right orbital trauma. Arrived unresponsive, hypotensive and intubated. Now OFF sedative-hypnotics. Just made a DNR CT scans of the head x 2 show diffuse subarachnoid hemorrhage Labs sig for aplastic anemia: FZF=471; H/H= 6.4/19%; and platelets= 300!! RAJIV: HYPOTHERMIC. Thin. Right orbital ecchymoses. Neck supple. Dense right corneal opacity or cataract NEURO: No response to name or pain No spontaneous respirations Pupils unreactive. No EOMs to Doll's head Corneals absent b/l Flaccid, areflexic, tetraplegia No withdrawal to pinch IMP: No evidence of cerebral or brain stem function Etiology is traumatic OR Spontaneous subarachnoid hemorrhage due to severe thrombocytopenia with massively increased ICP and Probable herniation. SUGGEST: Prognosis grave Consider a cerebral perfusion scan and/or apnea testing. Thank you very much, Eleazar Tse MD
[2020-04-05 21:31] LABS: EOS % 3.5 % (0-4.5); HEMATOCRIT 9.2 % (35.4-49); LYMPH % 81.3 % (8-40); MCH 33.1 pg (25.7-33.7); MCHC 31.3 g/dl (32.0-35.9); MEAN PLT VOLUME 7.8 fl (7.5-11.1); MONO % 7.6 % (3.8-10.2); NEUT % 7.6 % (42.8-82.8); RBC 0.87 M/mm3 (4.00-5.60); RDW 16.2 % (11.9-15.9)
[2020-04-05 21:34] LABS: PROTHROMBIN TIME (PATIENT) 83.2 SEC (9.7-13.0); WHITE BLOOD COUNT 0.2 K/mm3 (4.0-10.0)
[2020-04-05 21:35] LABS: HEMOGLOBIN 2.9 GM/dL (11.7-16.9); PLATELET COUNT 11 K/MM3 (134-434)
[2020-04-05 21:37] LABS: ACTIVATED PTT 74.8 SECONDS (25.2-36.5)
[2020-04-05 21:46] LABS: INR 6.91 (0.83-1.09)
[2020-04-05 21:57] LABS: ALBUMIN 1.6 g/dl (3.4-5.0); BLOOD UREA NITROGEN 73.8 mg/dL (7-18); CALCIUM 7.7 mg/dL (8.5-10.1); CREATININE 5.5 mg/dL (0.55-1.3)
[2020-04-05] MEDS ORDERED: CHLORHEXIDINE GLUCONATE 4% CLEANSER FOR DECOLONIZATION TP SCH (22:00)
[2020-04-05] MEDS ORDERED: CEFEPIME 1 GM in DEXTROSE 5%-WATER 100 ML IVPB SCH (22:00)
[2020-04-05] MEDS ORDERED: levETIRAcetam 500 MG/5 ML INJECTION VIAL IVPB SCH (22:00)
[2020-04-05 22:04] LABS: BILIRUBIN,TOTAL 1.6 mg/dL (0.2-1); TOT PROT 4.2 g/dl (6.4-8.2)
[2020-04-05] MEDS ORDERED: DEXTROSE 5%-WATER 100 ML IVPB ONE (23:02)
[2020-04-05] MEDS ORDERED: CEFEPIME HCL 1 GM VIAL (RESTRICTED TO ID) ONE (23:02)
[2020-04-06] MEDS ORDERED: NOREPINEPHRINE BITARTRATE 4 MG/4 ML ML IV ONE (00:03)
--- NOTE | 2020-04-06 00:57 | PN ---
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 (short form) - Note 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: Notice of : At 12:28pm, patient was found to be without pulse, or electrical activity on telemetry. There was no spontaneous breathing, heart sounds, or breath sounds. The carotid pulse was absent. He was unresponsive to auditory, visual or painful stimuli. Patients pupils did not constrict to light, and there was no corneal reflex. Gag reflex was also absent. Time of as Pronounced: 12:28am on 04/06/2020 Family Notified by Nurse Ring Family offered chance to grieve with their loved one Body to be released to home of family's choosing.
[2020-04-06 03:09] VITALS: BP 42/16; PULSE 45; TEMP 92
--- NOTE | 2020-04-06 08:40 | PN ---
Teaching Attending Note Name of Resident: Adri Valentine ATTENDING PHYSICIAN STATEMENT I saw and evaluated the patient. I reviewed the resident's note and discussed the case with the resident. I agree with the resident's findings and plan as documented. ASSESSMENT AND PLAN: I saw and evaluated the patient. I reviewed the resident's note and discussed the case with the resident. I agree with the resident's findings and plan as documented. 69 year old male with past medical history of lung CA with mets on chemo (Carbo/Alimta/Pembrolizumab, last dose 03/24), Right renal mass, COPD, seizures, dementia, anemia, neuropathy, CKD, right brachial DVT, was brought in from [facility] after he was found unconscious on the floor. At the ED, patient was noted to have ecchymosis and swelling around both eyes, tachypneic and tachycardic. He had an episode of witnessed generalized seizure, and was subsequently intubated for airway protection. On labs, patient was found to be pancytopenic, with ANC of 0.1, hyperkalemic, DONALDO with Cr of 6.7, lactic acidosis of >15, elevated ferritin of >11k, LDH 354, CRP 25. Broad spectrum Cefepime and Vancomycin given, 1gram keppra, 2 units PRBCS, 2 units platelets, 2 units FFP, 10 vit K ,3.5L fluid, started on bicarb gtt and subsequently required pressors. Patient admitted to the ICU. Very poor prognosis with severe myelosuppression/ severe sepsis DNR
== END 2020-04-06 00:30 | disposition expired | DRG 963 ==
LOC: JER 06:25 → JERBED 11:50 → JICU 14:26
PROVIDERS: ADMIT Internal Medicine Pulmonary Disease; ATTEND Internal Medicine Pulmonary Disease
PROC: 0CHY7BZ Insertion of Airway into Mouth and Throat, Via Natural or Artificial Opening (ICD-10-PCS; principal; 2020-04-05)
PROC: 5A1935Z Respiratory Ventilation, Less than 24 Consecutive Hours (ICD-10-PCS; 2020-04-05)
PROC: 30233R0 Transfusion of Autologous Platelets into Peripheral Vein, Percutaneous Approach (ICD-10-PCS; 2020-04-05)
PROC: 30233K1 Transfusion of Nonautologous Frozen Plasma into Peripheral Vein, Percutaneous Approach (ICD-10-PCS; 2020-04-05)
PROC: 30233N1 Transfusion of Nonautologous Red Blood Cells into Peripheral Vein, Percutaneous Approach (ICD-10-PCS; 2020-04-05)
DX: S06.6X9A Traumatic subarachnoid hemorrhage with loss of consciousness of unspecified duration, initial encounter (principal); A41.89 Other specified sepsis; S72.001A Fracture of unspecified part of neck of right femur, initial encounter for closed fracture; J96.00 Acute respiratory failure, unspecified whether with hypoxia or hypercapnia; R65.21 Severe sepsis with septic shock; C41.9 Malignant neoplasm of bone and articular cartilage, unspecified; D61.818 Other pancytopenia; N17.9 Acute kidney failure, unspecified; E87.2 Acidosis; M62.82 Rhabdomyolysis; I47.1 Supraventricular tachycardia; S00.12XA Contusion of left eyelid and periocular area, initial encounter; S00.11XA Contusion of right eyelid and periocular area, initial encounter; L89.890 Pressure ulcer of other site, unstageable; W19.XXXA Unspecified fall, initial encounter; G40.909 Epilepsy, unspecified, not intractable, without status epilepticus; N40.0 Benign prostatic hyperplasia without lower urinary tract symptoms; Z86.718 Personal history of other venous thrombosis and embolism; G89.29 Other chronic pain; F03.90 Unspecified dementia, unspecified severity, without behavioral disturbance, psychotic disturbance, mood disturbance, and anxiety; K59.09 Other constipation; F32.9 Major depressive disorder, single episode, unspecified; H40.9 Unspecified glaucoma; E87.5 Hyperkalemia; N28.89 Other specified disorders of kidney and ureter; I95.9 Hypotension, unspecified; D63.0 Anemia in neoplastic disease; R68.0 Hypothermia, not associated with low environmental temperature; R94.5 Abnormal results of liver function studies; J44.9 Chronic obstructive pulmonary disease, unspecified; G62.9 Polyneuropathy, unspecified; Z85.118 Personal history of other malignant neoplasm of bronchus and lung; W18.39XA Other fall on same level, initial encounter; Y92.098 Other place in other non-institutional residence as the place of occurrence of the external cause
CPT/HCPCS: 31500; 36415; 36430; 36511; 36600; 70450-TC; 70486-TC; 71045-TC-FY; 71250-TC; 72125-TC; 73523-TC-FY; 74176-TC; 80053; 82248; 82550; 82553; 82728; 82803; 83605; 83615; 84484; 85025; 85384; 85610; 85730; 86140; 86850; 86900; 86901; 86922; 87040; 87186; 93005; 93010; 94002; 99291; P9017; P9034; P9038; P9058; U0003